=== PATIENT | female | born 1985 | race Caucasian/White ===

== ENCOUNTER → 2018-01-04 15:18 | Outpatient (CLI) | payer MEDICAID, SELFPAY ==
[2018-01-04 17:36] LABS: Hemoglobin A1c 6.1 % (4.2-6.3)
[2018-01-04 19:32] LABS: Free T3 3.1 pg/mL (2.18-3.98); Glucose 87 mg/dL (74-106); Luteinizing Hormone 4.1 mIU/mL; Prolactin 12.1 ng/mL; T4 Free Direct 1.07 ng/dL (0.76-1.46); Thyroid Stim Hormone (TSH) 1.72 uIU/mL (0.358-3.74)
== END ==
PROVIDERS: Visit Provider Obstetrics & Gynecology
DX: N92.6 Irregular menstruation, unspecified (principal)
CPT/HCPCS: 36415; 82947; 83001; 83002; 83036; 84146; 84439; 84443; 84481

== ENCOUNTER 2018-02-21 08:48 | Day surgery (SDC) | payer MEDICAID, SELFPAY ==
[2018-02-15 15:28] LABS: Hematocrit 39.5 % (37-47); Hemoglobin 12.9 g/dl (12.0-15.0); Mean Corp Hgb Conc 32.7 g/gl (32-36); Mean Corpuscular Hgb 29.3 pg (27.0-32.0); Mean Corpuscular Volume 89.6 fL (81-99); Mean Platelet Vol. 11.8 fl (6.2-12.0); Platelet Count 273 K/mm3 (150-450); RBC Distribution Width CV 13.1 % (11.6-14.6); RBC Distribution Width SD 42.7 fl (35.1-43.9); Red Blood Count 4.41 M/mm3 (4.2-5.4); White Blood Count 7.2 K/mm3 (4.4-11.0)
[2018-02-15 15:33] LABS: Scan Indicated on CBC? Y/N NO
[2018-02-15 15:47] LABS: International Normalized Ratio 1.1
[2018-02-15 15:48] LABS: Partial Thromboplast Time 29.2 Seconds (24.1-36.2)
[2018-02-15 16:09] LABS: Pregnancy, Serum, hCG Quali. NEGATIVE Negative (0-9 Nonpreg)
[2018-02-21] VITALS (7 sets, daily range): BP systolic 101–114; BP diastolic 63–75; PULSE 54–87; RESP 16–18; TEMP 36.3–36.8; O2SAT 93–100; BMI 43.1
[2018-02-21 09:10] LABS: Internal QC Validated? YES +Cl - CLEAR BKGD; Pregnancy, Urine Negative Negative
[2018-02-21] MEDS: Clindamycin 900 MG/50 ML BAG 75 MG IV (10:15)
--- NOTE | 2018-02-21 10:46 | PCM.DC ---
You will use the following diet at home:: No restrictions Your food should be the consistency of: Regular Discharge Activity: Return to Normal Activity, May Drive, May not drive while taking narcotic pain medications., May Shower Return to work on:: 02/21/18 May shower in (days): 0 May resume sexual activity in: 2 weeks Call your doctor if your incision/area has: Sudden Increased Bleeding, Increased Pain/ Swelling, Increased Redness, Foul Smelling Discharge, Swelling at the incision site Call your doctor if you observe: Fever of 101 or Higher, Inability to urinate, Inability to have a bowel movement, Using more than one pad per hour, Shortness of breath, Chest pain, Calf discomfort, Uncontrolled pain Remove Dressing in (days):: 1 Cleanse incision/area with: Soap & Water Allergies/Adverse Reactions: Allergies morphine Allergy (Verified 02/14/18 11:01) Vomiting Penicillins Allergy (Verified 02/14/18 11:01) Unknown Medications to take at Discharge Hydrocodone/Acetaminophen [[place] 7.5-325 Tablet] 1 ea PO Q6H PRN PRN 7 Days #20 tab 02/21/18 Ibuprofen [Motrin] 800 mg PO TID PRN PRN #30 tab 02/21/18 The following prescriptions were given: Hydrocodone/Acetaminophen [[place] 7.5-325 Tablet] 1 ea PO Q6H PRN PRN 7 Days #20 tab PRN Reason: Pain Ibuprofen [Motrin] 800 mg PO TID PRN PRN #30 tab PRN Reason: pain or cramping Primary Care Physician: Care Physician,No Primary [Primary Care Provider] - Please Follow Up With: Paul Valladares MD When: one week Proposed Discharge Date: 02/21/18
[2018-02-21] MEDS: Bupivacaine 0.25% 30 ML Vial (11:09)
--- NOTE | 2018-02-21 11:19 | OP.PCM_ITS ---
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 Normal uterus, ovaries, and fallopian tubes. Liver appeared normal. Appendix normal. No pelvic or abdominal adhesions present. No evidence of endometriosis. product demonstrator: Audrey Hernández Type of Anesthesia:: General Anesthesiologist: Christopher Gutierrez Special Medications: none Specimen's removed: none Drains: none Estimated Blood Loss (mL): minimal Fluids Replaced: 500cc Description of Procedure: Magaly was taken to the OR with IV running. She was given gentamicin and clindamycin intravenously for surgical prophylaxis just prior to the procedure. General anesthesia was then introduced without complication. She was prepped and draped in the dorsal lithotomy position. A red rubber catheter was used to drain the bladder. A uterine manipulator was then placed. Attention was then directed to the abdomen where a 5mm vertical incision was made in the lower base of the umbilicus. The underlying subcutaneous tissue was then dissected down to the level of the fascia with blunt dissection with a Cinthia clamp. The abdominal wall was then elevated and a Veress needle was placed through the umbilical defect. The abdomen was then inflated to 15 Torr with CO2 gas. Using the visiport the 5mm trocar and sleeve were placed through the umbilical defect into the abdominal cavity. A second 5mm laparoscopic port was placed on the right side of the abdomen about 4 cm below the level of the umbilicus lateral to the inferior epigastric vessels. A thorough survey of the abdomen and pelvis was then performed. Findings were as mentioned above. The right port was then removed under direct visualization of the laparoscope. The gas was evacuated from the abdomen and the umbilical port site removed. The skin incisions were closed with 4-0 monocryl. The uterine manipulator was removed. Sponge and needle counts were correct. She was taken to the recovery room in stable condition. Grafts/Implants Used: none - Complications none - Admit VTE Documentation VTE Present on Admission: No VTE Mechan Device Prophylaxis: SCD's VTE Pharm Prophylaxis ordered?: No
== END 2018-02-21 13:35 | disposition home or self-care (01) ==
LOC: SDC 08:49 → AC 08:49
PROVIDERS: Visit Provider Obstetrics & Gynecology
PROC: (CPT 49320; principal; 2018-02-21 10:15)
DX: N94.10 Unspecified dyspareunia (principal); R10.2 Pelvic and perineal pain; Z87.891 Personal history of nicotine dependence
CPT/HCPCS: 00840; 49320; 36415; 81025; 84703; 85027; 85610; 85730; 86850; 86900; J7120; J2405

== ENCOUNTER → 2018-08-06 10:00 | Outpatient (CLI) | payer MEDICAID, SELFPAY ==
[2018-08-06 13:23] LABS: hCG Titer Quant., Serum 3648 mIU/mL (<9 non-preg)
[2018-08-06 15:16] LABS: Chlamydia Trachomatis by PCR Negative (Negative); Neisserai gonorrhoeae by PCR Negative (Negative); Probe Check PASS; Sample Adequacy Control PASS; Specimen Processing Control PASS
[2018-08-09 11:18] LABS: HPV Reflexed? NOT INDICATED
== END ==
PROVIDERS: Visit Provider Obstetrics & Gynecology
DX: Z32.01 Encounter for pregnancy test, result positive (principal); Z12.4 Encounter for screening for malignant neoplasm of cervix; Z11.3 Encounter for screening for infections with a predominantly sexual mode of transmission
CPT/HCPCS: 36415; 84702; 87491; 87591; 88175; G0145

== ENCOUNTER → 2018-08-09 10:17 | Outpatient (CLI) | payer MEDICAID, SELFPAY ==
[2018-08-09 11:15] LABS: hCG Titer Quant., Serum 9244 mIU/mL (<9 non-preg)
== END ==
PROVIDERS: Visit Provider Obstetrics & Gynecology
DX: Z32.01 Encounter for pregnancy test, result positive (principal)
CPT/HCPCS: 36415; 84702

== ENCOUNTER → 2018-08-20 11:41 | Outpatient (CLI) | payer MEDICAID, SELFPAY ==
[2018-08-20 13:38] LABS: Color, Urine Straw (Yellow); Glucose, Dipstick Normal (Normal); Ketone-Dipstick Negative (Negative); Leukocyte Esterase-Dipstick 25 /ul (Negative); Nitrite-Dipstick Negative (Negative); Occult Blood-Urine Negative /ul (Negative); Protein-Dipstick Negative (Negative); Specific Gravity, Urine 1.005 (1.002-1.030); Urine Bilirubin Dipstick Negative (Negative); Urine Clarity Clear (Clear); Urine Urobilinogen Normal (Normal)
[2018-08-20 13:40] LABS: COTININE Drug Screen Negative (<200 ng/mL)
[2018-08-20 13:44] LABS: Absolute Lymphocyte Count 2.46 X10^3/ul (0.83-4.51); Absolute Neutrophil Count 3.9 X10^3/uL (2.0-7.7); Basophil# 0.03 X10^3/uL; Basophil% 0.4 % (0-1); Eosinophil# 0.04 X10^3/uL; Eosinophils% 0.6 % (0-5); Hematocrit 39.8 % (37-47); Hemoglobin 13.2 g/dl (12.0-15.0); Lymphocyte # 2.46 X10^3/ul (4.0); Lymphocyte % 36.7 % (19-41); Mean Corp Hgb Conc 33.2 g/gl (32-36); Mean Corpuscular Hgb 29.8 pg (27.0-32.0); Mean Corpuscular Volume 89.8 fL (81-99); Mean Platelet Vol. 12.2 fl (6.2-12.0); Monocyte% 4.5 % (0-10); Neutrophil # 3.87 X10^3/uL (2.7-7.7); Neutrophil % 57.7 % (47-70); POSITIVE COUNT NO; POSITIVE DIFFERENTIAL NO; POSITIVE MORPHOLOGY NO; Platelet Count 271 K/mm3 (150-450); RBC Distribution Width CV 13.5 % (11.6-14.6); RBC Distribution Width SD 44.5 fl (35.1-43.9); Red Blood Count 4.43 M/mm3 (4.2-5.4); White Blood Count 6.7 K/mm3 (4.4-11.0)
[2018-08-20 13:50] LABS: Amphetamine Urine VISTA NEGATIVE (<1000 ng/mL); Barbiturate Urine VISTA NEGATIVE (< 200 ng/mL); Benzodiazepine Urine VISTA NEGATIVE (< 200 ng/mL); Cocaine Urine VISTA NEGATIVE (< 300 ng/mL); Ecstacy Urine VISTA NEGATIVE (< 500 ng/mL); Methadone Urine VISTA NEGATIVE (< 300 ng/mL); PCP Urine VISTA NEGATIVE (< 25 ng/mL); THC Urine VISTA NEGATIVE (< 50 ng/mL); Vista UDS pH Range 6
[2018-08-20 13:59] LABS: Thyroid Stim Hormone (TSH) 1.47 uIU/mL (0.358-3.74)
[2018-08-20 14:40] LABS: HIV - WCH Non-Reactive (Nonreactive); Rubella IgG 323.3 IU/mL
[2018-08-21 13:39] LABS: HEPATITIS B SURFACE AG Negative (Negative); Hep C Antibodies <0.1 s/co ratio (0.0-0.9)
[2018-08-24 03:50] LABS: Prenatal RPR NONREACTIVE (NONREACTIVE)
== END ==
PROVIDERS: Visit Provider Obstetrics & Gynecology
DX: Z34.81 Encounter for supervision of other normal pregnancy, first trimester (principal)
CPT/HCPCS: 36415; 80307; 81002; 84443; 85025; 86703; 86762; 86803; 87340

== ENCOUNTER → 2019-01-08 08:45 | Outpatient (CLI) | payer MEDICAID, SELFPAY ==
[2019-01-08 11:00] LABS: Hemoglobin 10.5 g/dl (12.0-15.0); Mean Corp Hgb Conc 32.8 g/gl (32-36); Mean Corpuscular Hgb 29.5 pg (27.0-32.0); Mean Corpuscular Volume 89.9 fL (81-99); Mean Platelet Vol. 11.4 fl (6.2-12.0); Platelet Count 249 K/mm3 (150-450); RBC Distribution Width CV 13.3 % (11.6-14.6); RBC Distribution Width SD 43.5 fl (35.1-43.9); Red Blood Count 3.56 M/mm3 (4.2-5.4); White Blood Count 7.8 K/mm3 (4.4-11.0)
[2019-01-08 11:03] LABS: Scan Indicated on CBC? Y/N NO
[2019-01-08 11:33] LABS: Glucose Challenge Gest 1H 50g 156 mg/dL (70-140)
== END ==
PROVIDERS: Visit Provider Obstetrics & Gynecology
DX: Z34.82 Encounter for supervision of other normal pregnancy, second trimester (principal)
CPT/HCPCS: 36415; 82950; 85027

== ENCOUNTER → 2019-01-11 06:36 | Outpatient (CLI) | payer MEDICAID, SELFPAY ==
[2019-01-11 07:46] LABS: Glucose GTT-Gestation. Fasting 80 mg/dL (<105)
[2019-01-11 08:47] LABS: Glucose GTT-Gestational 1 Hr 157 mg/dL (<190)
[2019-01-11 10:22] LABS: Glucose GTT-Gestational 2 Hr 99 mg/dL (<165)
[2019-01-11 11:44] LABS: Glucose GTT-Gestational 3 Hr 50 L (<145)
== END ==
PROVIDERS: Family Provider Family Medicine; PCP Family Medicine; Referring Provider Obstetrics & Gynecology; Visit Provider Obstetrics & Gynecology
DX: O24.912 Unspecified diabetes mellitus in pregnancy, second trimester (principal); Z3A.00 Weeks of gestation of pregnancy not specified
CPT/HCPCS: 36415; 82951; 82952

== ENCOUNTER 2019-01-28 10:46 | Emergency (ER) | payer MEDICAID, SELFPAY ==
[2019-01-28 10:47] VITALS: BP 137/86; PULSE 110; RESP 16; TEMP 37.1; O2SAT 97; BMI 45.1
[2019-01-28 10:52] VITALS: BP 137/86; PULSE 110; RESP 16; TEMP 37.1; O2SAT 97
--- NOTE | 2019-01-28 11:09 | RAD_ITS ---
STUDY: X-RAY CHEST REASON FOR EXAM: Female, 33 years old. Symptoms of a cold. The patient is 30 weeks . The patient is adequately shielded. TECHNIQUE: PA and lateral views of the chest. COMPARISON: None. FINDINGS: Mild increased markings at the left lung base suggestive of left basilar atelectasis and/or early infiltrate. There is no demonstrated pleural abnormality. Normal size heart. Normal mediastinum and valerie. Normal visualized pulmonary arteries. Normal visualized aortic arch and descending thoracic aorta. Normal visualized thoracic spine. Normal visualized ribs, clavicles, and shoulders. There is no demonstrated abnormality of the visualized soft tissue structures of the upper abdomen. RAD/Chest PA and Lateral IMPRESSION: Mild increased markings at the left lung base suggestive of mild basilar atelectasis versus early infiltrate. Electronically Signed: Scotty Valladares, at 11:59 EDT , Service support ,
[2019-01-28] MEDS: Acetaminophen 500 MG Tablet 1000 MG PO (11:17)
[2019-01-28] MEDS: predniSONE 20 MG Tablet 40 MG PO (11:19)
[2019-01-28 11:29] VITALS: PULSE 80; RESP 18
[2019-01-28] MEDS: Albuterol 2.5 MG/3 ML VIAL.NEB. INHALATION (11:29)
--- NOTE | 2019-01-28 12:14 | ED.DCSUM_ITS ---
- ER Visit Summary Date of Service: 01/28/19 Chief Complaint: Cough History of Present Illness: The patient is a [address] Barnes and Dr. María ashley. She reports he has a cough began approximately month ago. Is productive of green sputum without blood. She states that she has not had a fever for the past 2 weeks. She reports that she has sinus congestion and a sore throat is 10 out of 10 in severity. She has chest and abdominal pain with coughing. She has been wheezing and is mildly short of breath. She has a headache that is 6 out of 10 severity. She does have a history of similar headaches. Patient is a at 30 weeks and 1 day. She denies any vaginal bleeding or discharge. She had normal movement. She is on Tamiflu approximately 1 month ago without any relief. She went to urgent care and was told that this was viral. States she has had similar symptoms previously, but never this severe. She has had to use inhalers in the past. Physical Examination: Vitals: 98.8, 1 3736, 110, 16, 97% room air which is not hypoxic. General: Well-nourished and well-developed. Head: Normocephalic atraumatic. HEENT: Pharyngeal erythema. No tonsillar exudate or enlargement. No peritonsillar abscess. She does have nasal congestion. Neck: Supple, no lymphadenopathy. No JVD. Nontender. Cardiovascular: Regular rate and rhythm. No murmurs. Respiratory: No respiratory distress. Clear to auscultation bilaterally. Frequent dry cough. Abdominal: Soft, nontender, nondistended, normal bowel sounds. No guarding, rebound, or peritoneal signs. Gravid uterus. Back: Nontender. Extremities: Nontender, no edema. Skin: Normal color, no rash. Neurologic: Alert and oriented ?3. Cranial nerves II through XII are intact. Normal strength and sensation. Psych: Normal affect. Test Results: Chest x-ray shows mild increased markings in the left lung base. Atelectasis versus early infiltrate. Given her third trimester I suspect that this is actually atelectasis. I does not appear to be an infiltrate in my opinion. Emergency Department Course and Treatment: Patient was treated with an albuterol aerosol. This did help with her cough significantly. She is given a dose of Zithromax and prednisone p.o. She had heart tones 136. Treatment Plan: Patient be discharged on a Z-Atul. 4 days of prednisone. Given a prescription for an albuterol MDI. Instructed to follow-up her primary care physician in 3-5 days if not improving. Return to the emergency department for any worsening symptoms. Disposition: To home in improved and stable condition. Impression: 1. URI. 2. Bronchospasm. 3. Third trimester . This note was generated with [employer] dictation software. It may contain incorrect words, spelling, and punctuation that were not noted in review of the chart prior to signing ED Disposition - Plan for ED Patient: Disposition: Home or Assisted Living Instructions: ED Upper Resp Infec Abx Tx Prescriptions: Albuterol Inhaler [Ventolin Hfa] 2 puff INHALATION Q4H PRN PRN #1 inhaler PRN Reason: Wheezing Azithromycin [Zithromax] 250 mg PO DAILY #4 tablet Prednisone [Deltasone] 40 mg PO DAILY #10 tablet Referrals: Carlos Nair MD [Primary Care Provider] - 1 Week if not improving
[2019-01-28] MEDS: Azithromycin 250 MG Tablet 500 MG PO (12:27)
[2019-01-28 12:30] VITALS: BP 117/79; PULSE 91; RESP 18; O2SAT 97
== END 2019-01-28 12:32 | disposition home or self-care (01) ==
LOC: ED 11:19
PROVIDERS: Emergency Provider Emergency Medicine; Family Provider Family Medicine; PCP Family Medicine
DX: O26.893 Other specified pregnancy related conditions, third trimester (principal); J06.9 Acute upper respiratory infection, unspecified; J98.01 Acute bronchospasm; Z87.891 Personal history of nicotine dependence; Z3A.30 30 weeks gestation of pregnancy
CPT/HCPCS: 71046; 94640; 99283

== ENCOUNTER → 2019-03-13 16:59 | Outpatient (CLI) | payer MEDICAID, SELFPAY | PROVIDERS: Visit Provider Obstetrics & Gynecology | DX: Z36.85 Encounter for antenatal screening for Streptococcus B (principal) | CPT/HCPCS: 87081 ==

== ENCOUNTER 2019-03-25 19:10 | Outpatient (CLI) | payer MEDICAID, SELFPAY ==
[2019-03-25] MEDS: Acetaminophen 500 MG Tablet 1000 MG PO (20:22)
[2019-03-25 20:23] VITALS: BMI 45.9
[2019-03-25 20:36] LABS: ROM Internal Control Test YES-OK TO RESULT pt. (Internal QC); ROM Patient Test Negative (Negative)
[2019-03-25] MEDS: Lactated Ringers 1,000 ML 125 ML IV (22:00)
[2019-03-25 22:22] LABS: Hematocrit 34.1 % (37-47); Hemoglobin 11.2 g/dl (12.0-15.0); Mean Corp Hgb Conc 32.8 g/gl (32-36); Mean Corpuscular Hgb 28.7 pg (27.0-32.0); Mean Corpuscular Volume 87.4 fL (81-99); Mean Platelet Vol. 12.2 fl (6.2-12.0); Platelet Count 192 K/mm3 (150-450); RBC Distribution Width CV 14.2 % (11.6-14.6); RBC Distribution Width SD 44.8 fl (35.1-43.9); White Blood Count 9.8 K/mm3 (4.4-11.0)
[2019-03-25 22:27] LABS: Scan Indicated on CBC? Y/N NO
[2019-03-25 22:36] LABS: International Normalized Ratio 0.9; Partial Thromboplast Time 25.8 Seconds (24.1-36.2)
[2019-03-25 22:37] LABS: AST(SGOT) 10 U/L (15-37); Alanine Aminotransfer ALT/SGPT 16 U/L (13-56); Creatinine, Serum 0.59 mg/dL (0.55-1.02); EST Glomerular Filtration Rate 124 mL/min (>60); Est Glom Filt Rate - Afr Amer 150 mL/min (>60); Estimated Creatinine Clearance 131.89 ml/min; Uric Acid 5.3 mg/dL (2.6-6.0)
[2019-03-25 23:23] LABS: Protein, Urine (Random) 9.5 mg/dL (<11.9); Protein:Creat Ratio 79 mg/g CRE (0-200)
--- NOTE | 2019-03-26 00:23 | OB.TRI.NOTE ---
History of Present Illness Was patient seen by the physician?: Yes Reason For Visit: R/O LABOR Date of Service: 03/26/19 Final SMILEY: 04/07/19 Final SMILEY Source: US <20 weeks Gestational age: 38 Weeks and 2 Days History of Present Illness: 38+ week intrauterine presents with headache for 3 days. Does not seem to be getting worse but is not getting better. Some issues with sinus congestion. Did not try any Tylenol today. Good movement. Denies contractions. Allergies Penicillins Allergy (Verified 03/25/19 20:05) Unknown morphine Adverse Reaction (Verified 03/25/19 20:16) Vomiting Laboratory Studies: Laboratory Tests 03/25/19 03/25/19 03/25/19 Range/Units 23:00 22:00 22:00 WBC (4.4-11.0) K/mm3 RBC (4.2-5.4) M/mm3 Hgb (12.0-15.0) g/dl Hct (37-47) % MCV (81-99) fL MCH (27.0-32.0) pg MCHC (32-36) g/gl RDW (11.6-14.6) % RDW Differential (35.1-43.9) fl Plt Count (150-450) K/mm3 MPV (6.2-12.0) fl PT 12.0 (11.7-14.9) SECONDS INR 0.9 APTT 25.8 (24.1-36.2) Seconds Creatinine 0.59 (0.55-1.02) mg/dL Estim Creat Clear Calc 131.89 ml/min Est GFR (MDRD) Af Amer 150 (>60) mL/min Est GFR (MDRD) Non-Af 124 (>60) mL/min Uric Acid 5.3 (2.6-6.0) mg/dL AST 10 L (15-37) U/L ALT 16 (13-56) U/L U Random Total Protein 9.5 (<11.9) mg/dL Urine Creatinine 121.00 (NO RANGE EST.) mg/dL Protein/Creatinin Ratio 79 (0-200) mg/g CRE Vag Amniotic Fld Detect (Negative) 03/25/19 03/25/19 Range/Units 22:00 19:55 WBC 9.8 (4.4-11.0) K/mm3 RBC 3.90 L (4.2-5.4) M/mm3 Hgb 11.2 L (12.0-15.0) g/dl Hct 34.1 L (37-47) % MCV 87.4 (81-99) fL MCH 28.7 (27.0-32.0) pg MCHC 32.8 (32-36) g/gl RDW 14.2 (11.6-14.6) % RDW Differential 44.8 H (35.1-43.9) fl Plt Count 192 (150-450) K/mm3 MPV 12.2 H (6.2-12.0) fl PT (11.7-14.9) SECONDS INR APTT (24.1-36.2) Seconds Creatinine (0.55-1.02) mg/dL Estim Creat Clear Calc ml/min Est GFR (MDRD) Af Amer (>60) mL/min Est GFR (MDRD) Non-Af (>60) mL/min Uric Acid (2.6-6.0) mg/dL AST (15-37) U/L ALT (13-56) U/L U Random Total Protein (<11.9) mg/dL Urine Creatinine (NO RANGE EST.) mg/dL Protein/Creatinin Ratio (0-200) mg/g CRE Vag Amniotic Fld Detect Negative (Negative) NST - FHR Rate Baby B NST Reactive:: Yes FHR Category:: Category I Impression/Plan 38+ week intrauterine with some sinus congestion. No PIH signs or symptoms. Headache abated a bit with some Tylenol. PIH labs were normal. Reactive nonstress test. ROM plus test was negative. Plans to follow-up in the office tomorrow and discuss with Dr. Valladares. Otherwise routine follow-up. Return if headaches become significantly worse.
== END 2019-03-26 00:30 | disposition home or self-care (01) ==
LOC: WPOUT 19:57 → WP 19:58
PROVIDERS: Visit Provider Obstetrics & Gynecology
DX: O26.893 Other specified pregnancy related conditions, third trimester (principal); R09.81 Nasal congestion; Z88.0 Allergy status to penicillin; Z3A.38 38 weeks gestation of pregnancy
CPT/HCPCS: 96360; 96361 ×2; 36415; 59025; 59050; 82565; 82570; 84112; 84156; 84450; 84460; 84550; 85027; 85610; 85730; 99218; J7120; G0378

== ENCOUNTER 2019-04-03 07:02 | Inpatient (IN) | payer MEDICAID, SELFPAY ==
[2019-04-03 07:40] VITALS: BMI 46.0
[2019-04-03] MEDS: Lactated Ringers 1,000 ML 50 ML IV ×2 (07:48→11:10)
[2019-04-03 08:00] LABS: Absolute Neutrophil Count 5.3 X10^3/uL (2.0-7.7); Basophil# 0.01 X10^3/uL; Basophil% 0.1 % (0-1); Eosinophil# 0.08 X10^3/uL; Eosinophils% 0.9 % (0-5); Hematocrit 34.7 % (37-47); Hemoglobin 11.4 g/dl (12.0-15.0); Mean Corp Hgb Conc 32.9 g/gl (32-36); Mean Corpuscular Hgb 28.7 pg (27.0-32.0); Mean Corpuscular Volume 87.4 fL (81-99); Mean Platelet Vol. 12.4 fl (6.2-12.0); Monocyte# 0.47 X10^3/uL; Monocyte% 5.3 % (0-10); Neutrophil # 5.32 X10^3/uL (2.7-7.7); Neutrophil % 60.5 % (47-70); Platelet Count 189 K/mm3 (150-450); RBC Distribution Width CV 13.9 % (11.6-14.6); Red Blood Count 3.97 M/mm3 (4.2-5.4); White Blood Count 8.8 K/mm3 (4.4-11.0)
[2019-04-03 08:02] LABS: POSITIVE COUNT NO; POSITIVE DIFFERENTIAL NO; POSITIVE MORPHOLOGY NO
[2019-04-03] MEDS: Oxytocin 30 units/NS 500 ml 30 UNITS/500 ML IV.SOLN IV (08:10)
[2019-04-03] MEDS: fentaNYL-bupivacaine (epidural) 100 ML BAG EPIDURAL (10:40)
[2019-04-03] MEDS: Oxytocin 30 units/NS 500 ml 30 UNITS/500 ML IV.SOLN 334 UNITS IV (13:51)
--- NOTE | 2019-04-03 14:14 | PCM.OPRPT ---
Report of Operation Date of Procedure: 04/03/19 Pre-Operative Diagnosis: Gestational Hypertension 39w3d ega Post-Operative Diagnosis: same Surgery/Procedure Performed:: Spontaneous Vaginal Delivery Vaginal Delivery Maternal Presentation: Medically Indicated Induction 39w3d ega admitted for induction of labor due to gestational hypertension. Method of Induction: Pitocin Medical Reason for Induction: Gestational Hypertension Amniotic Membrane Rupture Type: Artificial Rupture of Membrane time: 0830 Amniotic Fluid Description: Clear Final SMILEY: 04/07/19 Final SMILEY Source: US <20 weeks Gestational age: 39 Weeks and 3 Days Date of Procedure: 04/03/19 Pre-Operative Diagnosis: Labor Post-Operative Diagnosis: same Surgery/ Procedure Performed: Spontaneous Vaginal Delivery Anesthesiologist: Gian Reddy Type of Anesthesia: Epidural Description of Procedure: Progressed to FD then pushed for about 15 minutes to deliver a live female without complication. Delayed cord clamping was employed. After delivery the mouth was suctioned with a bulb suction. There was an active cry shortly after delivery. The cord was clamped and cut and the baby placed on mom's chest. The placenta was delivered spontaneously intact. The placenta was heart shaped with a centrally located 3VC. The uterus contracted well. Inspection revealed an intact upper and lower vagina, cervix and perineum. A small first degree periurethral tear was repaired with 3-0 Rapide suture. Presentation: Vertex Placental Delivery Description: Spontaneous Placenta Disposition: [facility] Percentage of Placenta Abruption: 0 Cord Vessel Description: 3 Vessels Nuchal Cord Compression: Without compression Cord Entanglement: None Drain: Michael to straight drain Estimated Blood Loss: 200c A gender: Female (1 minute): 9 (5 minute): 9 Episiotomy Description: None Laceration: Periurethral Extnsion/lac, 1st degree Medications given after delivery: IV Pitocin Complications: None
[2019-04-03] MEDS: Oxytocin 30 units/NS 500 ml 30 UNITS/500 ML IV.SOLN 167 UNITS IV (14:21)
--- NOTE | 2019-04-03 14:21 | DCINST_ITS ---
Discharge Diet: No Restrictions Discharge Activity: Return to Normal Activity Return to work on:: 06/03/19 May shower in (days): 0 May resume sexual activity in: 6 weeks Call your doctor if your incision/area has: Sudden Increased Bleeding, Increased Pain/ Swelling, Foul Smelling Discharge Call your doctor if you observe: Fever of 101 or Higher, Inability to urinate, Inability to have a bowel movement, Using more than one pad per hour, Shortness of breath, Chest pain, Calf discomfort, Uncontrolled pain Cleanse incision/area with: Soap & Water Additional Instructions: If you experience any of the following, contact your healthcare provider. * Bleeding that soaks a pad every hour for 2 hours * Fever 100.4 or higher * Unrelieved incision or abdominal pain * Swelling, redness, discharge or bleeding from your incision or episiotomy site * Your incision begins to separate * Problems urinating (including inability to urinate or burning while urinating). * Visual changes * Severe headache * Flu-like symptoms * Pain or redness in one of both of your breasts * Pain, warmth, tenderness or swelling in your legs, especially the calf area * Frequent nausea and vomiting * Symptoms of depression or anxiety If you experience any of the following, call 911 or go to the nearest Emergency Room. * Chest pain * Problems breathing * Seizure activity * Partial or complete paralysis of a body part, slurred speech, weakness or drooping of the face, or a sudden inability to walk or hold your balance Allergies/Adverse Reactions: Allergies Penicillins Allergy (Verified 04/03/19 07:41) Unknown morphine Adverse Reaction (Verified 04/03/19 07:41) Vomiting Medications to take at Discharge Ferrous Gluconate 324 mg PO BID 01/28/19 Docusate Sodium 100 mg PO BID 04/03/19 Vit No.130/Iron/Folic [ Tablet] 1 tab PO DAILY 04/03/19 Please Follow Up With: Paul Valladares MD When: 6 weeks Test Results: Test results from this visit will be discussed in further detail at your follow- up appointment, if applicable. Proposed Discharge Date: 04/05/19
[2019-04-03 18:00] VITALS: BP 134/83; PULSE 82; RESP 16; TEMP 36.8; O2SAT 99
[2019-04-03] MEDS: Ibuprofen 600 MG Tablet PO ×2 (18:03→23:35)
[2019-04-03] MEDS: Ferrous Gluconate 324 MG Tablet PO (18:03)
[2019-04-03 19:15] VITALS: BP 135/78; PULSE 78; RESP 18; TEMP 37
[2019-04-03 23:25] VITALS: BP 132/78; PULSE 71; RESP 18; TEMP 36.4
[2019-04-04 03:25] VITALS: BP 130/80; PULSE 74; RESP 18; TEMP 36.3
[2019-04-04] MEDS: Ibuprofen 600 MG Tablet PO ×2 (05:31→14:17)
[2019-04-04 07:38] LABS: Hematocrit 31.9 % (37-47); Hemoglobin 10.4 g/dl (12.0-15.0); Mean Corp Hgb Conc 32.6 g/gl (32-36); Mean Corpuscular Hgb 28.5 pg (27.0-32.0); Mean Corpuscular Volume 87.4 fL (81-99); Mean Platelet Vol. 11.9 fl (6.2-12.0); Platelet Count 172 K/mm3 (150-450); RBC Distribution Width CV 14.1 % (11.6-14.6); RBC Distribution Width SD 44.8 fl (35.1-43.9); Red Blood Count 3.65 M/mm3 (4.2-5.4); White Blood Count 10.2 K/mm3 (4.4-11.0)
[2019-04-04 07:40] LABS: Scan Indicated on CBC? Y/N NO
--- NOTE | 2019-04-04 08:03 | PCM.PN.OB ---
Subjective: Some cramping with breast feeding otherwise no complaints. Bleeding light. Objective: Afeb VSS Hgb appropriate on PP day#1 - Physical Exam General: Alert, Oriented x3, Cooperative, No apparent distress Lungs: Clear to auscultation, Normal air movement Cardiovascular: Regular rate, Regular Rhythm Abdomen: Soft, Non Tender, Non-Distended, - - Fundus nontender Extremities: No edema Skin: No rashes Neurological: Neuro grossly intact Psych/Mental Status: Normal Affect Comment: Lochia light Vital Signs Temp Pulse Resp BP Pulse Ox 97.4 F L 74 18 130/80 H 99 04/04/19 03:25 04/04/19 03:25 04/04/19 03:25 04/04/19 03:25 04/03/19 18:00 Oxygen Delivery Method Room Air Weight: 294 lb Body Mass Index (BMI) 46.0 Intake and Output for Last 24 Hours 04/02/19 04/03/19 04/04/19 23:59 23:59 23:59 Output Total 350 / 350 200 / 200 Balance -350 / -350 -200 / -200 Laboratory Tests Past 24 Hrs 04/03/19 04/04/19 07:45 07:30 WBC 10.2 RBC 3.65 L Hgb 10.4 L Hct 31.9 L MCV 87.4 MCH 28.5 MCHC 32.6 RDW 14.1 RDW Differential 44.8 H Plt Count 172 MPV 11.9 Blood Type A POSITIVE Antibody Screen NEGATIVE Medical Necessity - Tobacco Use Smoking Status: Former smoker Assessment/Plan All Active Problems Epigastric pain (Acute) Doing well on PP day#1. Continue routine PP care. may consider discharge home tonight. Home going instructions and warnings given.
--- NOTE | 2019-04-04 08:05 | DS.PCM_ITS ---
Discharge Date and Diagnosis Date of Admission: 04/03/19 Date of Discharge: 04/04/19 - Primary Discharge Diagnosis Gestational hypertension, term , s/p - Secondary Discharge Diagnosis Chronic Problems Pelvic pain (Chronic) Dyspareunia due to non-psychogenic cause in female (Chronic) Obesity (BMI 30.0-34.9) (Chronic) Hospital Course and Treatment Operations: None Procedures: - - Pitocin induction of labor, epidural anesthesia, Summary of Care Provided: The patient is a 33 year old F admitted for induction of labor at 39w3d [facility] to gestational hypertension. Pitocin induction resulted in an uncomplicated vaginal delivery. Post course was unremarkable. Discharged home on day[] - Physical Exam Vital Signs Temp Pulse Resp BP Pulse Ox 97.4 F L 74 18 130/80 H 99 04/04/19 03:25 04/04/19 03:25 04/04/19 03:25 04/04/19 03:25 04/03/19 18:00 Oxygen Delivery Method Room Air Weight: 294 lb Body Mass Index (BMI) 46.0 Intake and Output for Last 24 Hours 04/02/19 04/03/19 04/04/19 23:59 23:59 23:59 Output Total 350 / 350 200 / 200 Balance -350 / -350 -200 / -200 Laboratory Tests Past 24 Hrs 04/03/19 04/04/19 07:45 07:30 WBC 10.2 RBC 3.65 L Hgb 10.4 L Hct 31.9 L MCV 87.4 MCH 28.5 MCHC 32.6 RDW 14.1 RDW Differential 44.8 H Plt Count 172 MPV 11.9 Blood Type A POSITIVE Antibody Screen NEGATIVE Discharge Diet: No Restrictions Discharge Activity: Return to Normal Activity Return to work on:: 06/03/19 May shower in (days): 0 May resume sexual activity in: 6 weeks Call your doctor if your incision/area has: Sudden Increased Bleeding, Increased Pain/ Swelling, Foul Smelling Discharge Call your doctor if you observe: Fever of 101 or Higher, Inability to urinate, Inability to have a bowel movement, Using more than one pad per hour, Shortness of breath, Chest pain, Calf discomfort, Uncontrolled pain Cleanse incision/area with: Soap & Water Home Medications: Medications to take at Discharge Ferrous Gluconate 324 mg PO BID 01/28/19 Docusate Sodium 100 mg PO BID 04/03/19 Vit No.130/Iron/Folic [ Tablet] 1 tab PO DAILY 04/03/19 Please Follow Up With: Paul Valladares MD When: 6 weeks Disposition: Home Minutes spent on discharge:: 15 Medical Necessity - Tobacco Use Smoking Status: Former smoker Meaningful Use Info Meaningful Use Diagnoses (Choose all that apply): None applicable
[2019-04-04 08:36] VITALS: BP 129/82; PULSE 72; RESP 16; TEMP 36.5; O2SAT 98
[2019-04-04] MEDS: Ferrous Gluconate 324 MG Tablet PO ×2 (09:15→16:32)
[2019-04-04 11:43] VITALS: BP 117/81; PULSE 82; RESP 16; TEMP 36.7; O2SAT 97
[2019-04-04] MEDS: Prenatal Vits Tablet 1 TABLET PO (11:43)
[2019-04-04] MEDS: Senna/Docusate Sodium 1 Tablet PO (11:53)
[2019-04-04 16:29] VITALS: BP 104/80; PULSE 78; RESP 16; TEMP 36.7; O2SAT 98
[2019-04-04 20:45] VITALS: BP 134/83; PULSE 78; RESP 20; TEMP 36.6
[2019-04-05 01:30] VITALS: BP 129/88; PULSE 80; RESP 18; TEMP 36.7
[2019-04-05] MEDS: Ibuprofen 600 MG Tablet PO (05:25)
[2019-04-05] MEDS: Ferrous Gluconate 324 MG Tablet PO (07:52)
[2019-04-05 07:53] VITALS: BP 128/83; PULSE 70; RESP 15; TEMP 36.3
--- NOTE | 2019-04-05 08:21 | PCM.PN.OB ---
Subjective: Some cramping with contractions. Bleeding light. Objective: Afeb VSS - Physical Exam General: Alert, Oriented x3, Cooperative, No apparent distress Lungs: Clear to auscultation, Normal air movement Cardiovascular: Regular rate, Regular Rhythm Abdomen: Soft, Non Tender, Non-Distended Extremities: No edema Skin: No rashes Neurological: Neuro grossly intact Psych/Mental Status: Normal Affect Comment: Lochia light Vital Signs Temp Pulse Resp BP Pulse Ox 97.4 F L 70 15 128/83 H 98 04/05/19 07:53 04/05/19 07:53 04/05/19 07:53 04/05/19 07:53 04/04/19 16:29 Oxygen Delivery Method Room Air Weight: 294 lb Body Mass Index (BMI) 46.0 Intake and Output for Last 24 Hours 04/03/19 04/04/19 04/05/19 23:59 23:59 23:59 Output Total 350 / 350 500 / 500 Balance -350 / -350 -500 / -500 Medical Necessity - Tobacco Use Smoking Status: Former smoker Assessment/Plan All Active Problems Epigastric pain (Acute) Doing well on PP day#2. Cleaared for discharge home today.
--- NOTE | 2019-04-05 09:29 | NURSING ---
0920- patient to W/C in stable condition. infant placed on lap in carseat. patient and infant to private car in stable condition.
--- NOTE | 2019-04-09 17:55 | NURSING ---
Follow up phone call made and left a voicemail. Rock POWELL
== END 2019-04-05 09:20 | disposition home or self-care (01) | DRG 560 ==
PROVIDERS: Admitting Provider Obstetrics & Gynecology; Referring Provider Obstetrics & Gynecology; Visit Provider Obstetrics & Gynecology
DX: O13.4 Gestational [pregnancy-induced] hypertension without significant proteinuria, complicating childbirth (principal); O26.23 Pregnancy care for patient with recurrent pregnancy loss, third trimester; O71.82 Other specified trauma to perineum and vulva; Z3A.39 39 weeks gestation of pregnancy; Z37.0 Single live birth; Z87.891 Personal history of nicotine dependence; O99.214 Obesity complicating childbirth; E66.9 Obesity, unspecified; N94.10 Unspecified dyspareunia; R10.2 Pelvic and perineal pain
CPT/HCPCS: 59050; 85025; 85027; 86850; 86900; 99218; J7120; G0378

== ENCOUNTER 2019-05-10 16:22 | Emergency (ER) | payer MEDICAID, SELFPAY ==
[2019-05-10 16:23] VITALS: BP 148/87; PULSE 91; RESP 16; TEMP 36.8; O2SAT 95; BMI 42.6
--- NOTE | 2019-05-10 16:52 | ED.DCSUM_ITS ---
- ER Visit Summary Date of Service: 05/10/19 Chief Complaint: Right chest wall abscess History of Present Illness: The patient is a 33 F who has an abscess on the right chest wall. She states is been there for approximately a week. It is getting larger. She states that she did express some purulent material a few days ago but it seems to be getting bigger. She is currently breast-feeding and has had decreased breast milk output over the last couple of days as well. She denies any fevers. She is never had anything like this before. She called her OB who advised her to come in for evaluation. Physical Examination: Vital signs reviewed. Skin exam reveals a 3 x 3 cm abscess on the right-hand side of the chest wall. There is some mild surrounding erythema. No evidence of any mastitis seen. Test Results: Patient had an I&D of the abscess on the right chest wall. Only blood return. There was no significant purulence. All indurated tissue was surrounding this area. I will place her on antibiotics. She will need to follow-up with her [employer] MANA[employer] next week at a previously scheduled appointment. I will place her on clindamycin. Emergency Department Course and Treatment: [] Treatment Plan: [] Disposition: Discharge Impression: Right chest wall abscess This note was generated with [employer] dictation software. It may contain incorrect words, spelling, and punctuation that were not noted in review of the chart prior to signing ED Disposition - Plan for ED Patient: Referrals: NOT,DEFINED [NON-STAFF] -
--- NOTE | 2019-05-10 17:36 | ED.DEP ---
ED Disposition - Plan for ED Patient: Disposition: Home or Assisted Living Instructions: ABSCESS, Incision and Drainage Prescriptions: Clindamycin [Cleocin] 450 mg PO TID #90 cap Prescription Printed Referrals: NOT,DEFINED [NON-STAFF] -
[2019-05-10 17:45] VITALS: BP 139/87; PULSE 66; RESP 16; O2SAT 96
== END 2019-05-10 17:46 | disposition home or self-care (01) ==
PROVIDERS: Emergency Provider Emergency Medicine
DX: L02.213 Cutaneous abscess of chest wall (principal)
CPT/HCPCS: 10060; 99283

== ENCOUNTER → 2019-05-13 15:19 | Outpatient (CLI) | payer MEDICAID, SELFPAY ==
[2019-05-10 16:23] VITALS: BMI 42.6
[2019-05-13 17:21] LABS: Internal QC Validated? YES +Cl - CLEAR BKGD; Pregnancy, Serum, hCG Quali. NEGATIVE Negative
== END ==
PROVIDERS: Visit Provider Obstetrics & Gynecology
DX: Z30.9 Encounter for contraceptive management, unspecified (principal)
CPT/HCPCS: 36415; 84144; 84703

== ENCOUNTER → 2019-08-01 15:21 | Outpatient (CLI) | payer MEDICAID, SELFPAY ==
[2019-08-01 17:55] LABS: Chlamydia Trachomatis by PCR Negative (Negative); Neisserai gonorrhoeae by PCR Negative (Negative); Probe Check PASS; Sample Adequacy Control PASS; Specimen Processing Control PASS
[2019-08-07 15:36] LABS: HPV APTIMA, High Risk Negative (Negative); HPV Reflexed? YES, CHARGE PATIENT
== END ==
PROVIDERS: Visit Provider Obstetrics & Gynecology
DX: Z12.4 Encounter for screening for malignant neoplasm of cervix (principal); Z11.3 Encounter for screening for infections with a predominantly sexual mode of transmission
CPT/HCPCS: 87491; 87591; 87624; 88175; G0145

== ENCOUNTER → 2020-08-19 15:21 | Outpatient (CLI) | payer MEDICAID, SELFPAY ==
[2020-08-23 03:06] LABS: Chlamydia By Nucleic Acid AMP Negative (Negative)
[2020-08-23 07:37] LABS: Gonococcus By Nucleic Acid AMP Negative (Negative)
[2020-08-25 15:27] LABS: HPV Reflexed? NOT INDICATED
== END ==
PROVIDERS: Visit Provider Obstetrics & Gynecology
DX: Z12.4 Encounter for screening for malignant neoplasm of cervix (principal); N39.0 Urinary tract infection, site not specified
CPT/HCPCS: 87086; 87088; 87491; 87591; 88175; G0145

== ENCOUNTER 2020-08-31 20:00 | Emergency (ER) | payer MEDICAID, SELFPAY ==
[2020-08-31 20:01] VITALS: BP 144/92; PULSE 102; RESP 18; TEMP 36.6; O2SAT 95; BMI 45.1
--- NOTE | 2020-08-31 20:24 | US_ITS ---
HISTORY: Shooting pelvic pain down legs. [address] scan of the abdomen and pelvis is from just over an hour earlier. Findings: Endovaginal imaging only. The uterus measures 8.4 x 3.6 x 5.1 cm. Myometrium is homogeneous. A IUD is present within the region of the endometrial canal. Adnexal vessels are slightly prominent suggesting multiparity. The cervix is closed. The left ovary measures 4 x 2.1 x 2.5 cm. A follicle is present within the left ovary. Color Doppler imaging is nondiagnostic for flow within the left ovarian parenchyma. Pulse-wave Doppler imaging is nondiagnostic for flow within the left ovary. The right ovary measures 3.5 x 2 x 2.5 cm. Follicles are present on the right ovary. Color Doppler imaging suggests possible flow to right ovarian parenchyma. Pulse-wave Doppler imaging suggests probable arterial flow within the right ovarian parenchyma, however, the best way form for this potential flow is in the periphery of the right ovary possibly within a capsular vessel or a vessel outside of the ovary rather than within the right ovarian parenchyma. US/Transvaginal Non- IMPRESSION: Normal. The study does not demonstrate flow to either ovary. I believe this is likely technical rather than due to ovarian torsion. at 2133 Reported and signed by: Edilson Loomis MD Electronically Signed: Edilson Loomis MD at 21:32 EST Tel , Service support ,
[2020-08-31] MEDS: 0.9% Normal Saline 1,000 ML 1000 ML IV (20:37)
[2020-08-31] MEDS: Ondansetron 4 MG/2 ML Vial IV (20:37)
[2020-08-31] MEDS: HYDROmorphone 1 MG/ML Syringe IV (20:37)
[2020-08-31 20:42] LABS: Absolute Lymphocyte Count 3.75 X10^3/uL (0.83-4.51); Absolute Neutrophil Count 4.5 X10^3/uL (2.0-7.7); Basophil# 0.07 X10^3/uL; Basophil% 0.8 % (0-1); Eosinophil# 0.13 X10^3/uL; Eosinophils% 1.4 % (0-5); Hematocrit 40.8 % (37-47); Hemoglobin 13.2 g/dL (12.0-15.0); Lymphocyte # 3.75 X10^3/ul (4.0); Lymphocyte % 41.8 % (19-41); Mean Corp Hgb Conc 32.4 g/dL (32-36); Mean Corpuscular Hgb 29.3 pg (27.0-32.0); Mean Corpuscular Volume 90.7 fL (81-99); Monocyte# 0.54 X10^3/uL; NRBC Flagged by Analyzer 0 % (0-5); Neutrophil # 4.47 X10^3/uL (2.7-7.7); Neutrophil % 49.9 % (47-70); Platelet Count 303 K/mm3 (150-450); RBC Distribution Width CV 13.3 % (11.6-14.6)
--- NOTE | 2020-08-31 20:49 | CT_ITS ---
STUDY: CT ABDOMEN AND PELVIS WITHOUT CONTRAST REASON FOR EXAM: Female, 34 years old. Cramping pelvic pain RADIATION DOSAGE (If Supplied By Facility): CTDIvol = ( 24.08 ) mGy, DLP = ( 1347.73 ) mGycm TECHNIQUE: Transaxial images were obtained from the dome of the diaphragm to the symphysis pubis without oral contrast, and without intravenous contrast. Sagittal and coronal images were reconstructed. Individualized dose optimization techniques were used for this CT. COMPARISON: October 23 2013, 06 October 2013 FINDINGS: The visualized lung bases are unremarkable. The visualized portions of the heart are within normal limits. Normal liver. Segment 5 5 mm hypodense lesion is a benign cyst and requires no further follow-up. Gallbladder is removed.. Normal spleen. Normal pancreas. There is a 1.5 cm benign right adrenal adenoma. Left adrenal is normal. Normal right kidney. Normal left kidney. Normal visualized stomach. Normal small intestine. Normal colon. The appendix is visualized and appears normal. Normal abdominal aorta. Normal inferior vena cava. BMI is severely elevated with mixed intra-abdominal and extra abdominal lipomatosis. Bladder is decompressed and cannot be evaluated. IUD is in place. There is a 2.5 cm cystic structure in the left ovary, benign-appearing. Normal abdominal wall. Osseous structures are intact with accelerated degenerative change at L5-S1 disc space. Appearance is stable since prior. CT/Abdomen/Pelvis without Cont IMPRESSION: No acute abdominal findings. Stable exam since 2012. Electronically Signed: Elisabethpaul Kian, at 21:31 EST Tel , Service support ,
[2020-08-31 20:56] LABS: Internal QC Validated? YES +Cl - CLEAR BKGD; Pregnancy, Serum, hCG Quali. NEGATIVE Negative
[2020-08-31 21:00] LABS: Anion Gap 6 (5-15); BUN 14 mg/dL (7-18); BUN/Creat Ratio 13.9 RATIO (10-20); Calcium,Total 9.4 mg/dL (8.5-10.1); Chloride 108 mmol/L (98-107); Creatinine, Serum 1.01 mg/dL (0.55-1.02); EST Glomerular Filtration Rate 66 mL/min (>60); Est Glom Filt Rate - Afr Amer 80 mL/min (>60); Estimated Creatinine Clearance 73.47 ml/min; Glucose 86 mg/dL (74-106); Potassium 3.9 mmol/L (3.5-5.1); Sodium Level 141 mmol/L (136-145)
[2020-08-31 21:04] LABS: Mucous, Urine 0 SEEN /hpf (<or=2+); Red Blood Cells-Urine 0 SEEN /hpf (0-5)
[2020-08-31 21:32] LABS: Color, Urine Yellow (Yellow); Glucose, Dipstick Normal (Normal); Ketone-Dipstick Negative (Negative); Leukocyte Esterase-Dipstick 100 /ul (Negative); Nitrite-Dipstick Negative (Negative); Occult Blood-Urine Negative /ul (Negative); Protein-Dipstick 15 mg/dl (Negative); Urine Bilirubin Dipstick Negative (Negative); Urine Clarity Clear (Clear); Urine Urobilinogen Normal (Normal)
[2020-08-31 22:01] LABS: Bacteria 1+ /hpf (None Seen); Squamous Epithelial Cells - UA 5-10 SEEN /hpf (5-10); White Blood Cells 0-5 SEEN /hpf (0-5)
--- NOTE | 2020-08-31 22:14 | ED.VISSUMM ---
- ER Visit Summary Date of Service: 08/31/20 Chief Complaint: Pelvic pain History of Present Illness: The patient is a [address] Hackett. She reports that she has pelvic pain that began 2 months ago. It worsened 2 weeks ago and she saw Dr. Hackett. She reports that she had a pelvic exam and was placed on Bactrim twice a day which she has been taking for the past 2 weeks. States the pain worsened yesterday. It is a sharp, cramping pain is 10 on 10 at worst an 8 out of 10 currently. Is worsened by nothing and relieved by nothing. She is taken Tylenol and ibuprofen without relief. Denies any associated nausea, vomiting, or diarrhea. Her last bowel was today. On the hematochezia. She does complain of dysuria and frequency. She denies any vaginal bleeding or discharge. She has an IUD in place. Physical Examination: Vitals: Stable. Afebrile. General: Well-nourished and well-developed. Head: Normocephalic atraumatic. Neck: Supple, no lymphadenopathy. No JVD. Nontender. Cardiovascular: Regular rate and rhythm. No murmurs. Respiratory: No respiratory distress. Clear to auscultation bilaterally. Abdominal: Soft, moderate diffuse tenderness palpation over her lower abdomen, nondistended, normal bowel sounds. No guarding, rebound, or peritoneal signs. Back: Nontender. Extremities: Nontender, no edema. Skin: Normal color, no rash. Neurologic: Alert and oriented ?3. Cranial nerves II through XII are intact. Normal strength and sensation. Psych: Normal affect. Test Results: CBC shows lymphocytes 42. Chem-7 shows a chloride of 108. UA shows leukocytes, 5-10 epithelial cells, and 1+ bacteria. test is negative. Clinical Impression(s) from Imaging Studies Transvaginal US 08/31/20 20:24 IMPRESSION: Normal. The study does not demonstrate flow to either ovary. I believe this is likely technical rather than due to ovarian torsion. at 2133 Reported and signed by: Edilson Loomis MD Electronically Signed: Edilson Loomis MD at 21:32 EST Tel , Service support , Abdomen/Pelvis CT 08/31/20 20:49 IMPRESSION: No acute abdominal findings. Stable exam since 2012. Electronically Signed: Deniz Langston, at 21:31 EST Tel , Service support , Emergency Department Course and Treatment: Patient was given Dilaudid and Zofran IV. She is resting more comfortably. Treatment Plan: Patient was discussed with Dr. Peralta, on-call for Dr. Hackett, and the results of the ultrasound were discussed. I suspect that this is a problem with the study/our machine. I do not think that she has bilateral ovarian torsion. Dr. Peralta agrees with this. An [facility] report was obtained which shows she is had one prescription for opiates in the past year. She will be discharged prescription for 10 [facility] and instructed to follow-up with Dr. Kebede in 3 to 5 days for another exam. Return to the emergency department for any worsening symptoms. Disposition: To home in improved and stable condition. Impression: 1. Pelvic pain, uncertain cause. This note was generated with [employer] dictation software. It may contain incorrect words, spelling, and punctuation that were not noted in review of the chart prior to signing ED Disposition - Plan for ED Patient: Disposition: Home or Assisted Living Instructions: ED Pelvic Pain [facility] Prescriptions: Hydrocodone Bitart/Apap 5-325 [[facility] 5MG-325MG] 1 tab PO Q4H PRN PRN 2 Days #10 tab PRN Reason: Pain Prescription Printed Referrals: Teodoro Hackett MD [STAFF PHYSICIAN] - 3-5 Days
[2020-08-31 22:32] VITALS: BP 135/82; PULSE 98; RESP 18; O2SAT 98
== END 2020-08-31 22:33 | disposition home or self-care (01) ==
LOC: ED 20:30
PROVIDERS: Emergency Provider Emergency Medicine
DX: R10.2 Pelvic and perineal pain (principal); R30.0 Dysuria; K92.1 Melena; Z90.49 Acquired absence of other specified parts of digestive tract
CPT/HCPCS: 74176; 76830; 80048; 81001; 84703; 85025; 93976; 96361; 96374; 96375; 99282; J7030; A4216; J2405

== ENCOUNTER 2022-05-04 18:29 | Emergency (ER) | payer MEDICAID, SELFPAY ==
[2022-05-04 18:30] VITALS: BP 137/89; PULSE 88; RESP 16; TEMP 37.1; O2SAT 98; BMI 45.7
--- NOTE | 2022-05-04 18:40 | CT_ITS ---
STUDY: CT BRAIN WITHOUT CONTRAST REASON FOR EXAM: Female, 36 years old. HEADACHE trauma TECHNIQUE: Transaxial CT imaging of the brain was performed without administration of intravenous contrast material. Individualized dose optimization techniques were used for this CT. COMPARISON: None FINDINGS: Normal calvarium. Normal soft tissues. Normal size ventricles and extra-axial spaces for the patient''s age. Normal white matter tracts of the cerebral hemispheres. Normal basal ganglia and thalami. Normal brainstem. Normal cerebellum. There is no intracranial hemorrhage. There are no findings of an acute ischemic infarction. Normal visualized paranasal sinuses. ASPECTS 10 CT/Brain/Head without Contrast IMPRESSION: There are no acute intracranial findings. Electronically Signed: Michele Terry MD at 19:06 EDT ,
--- NOTE | 2022-05-04 18:40 | CT_ITS ---
STUDY: CT Spine Cervical W/O Contrast Injection 05/04/2022 7:07 PM REASON FOR EXAM: Female, 36 years old. NECK PAIN trauma HISTORY: NECK PAIN trauma TECHNIQUE: High resolution transaxial imaging was performed without intravenous administration of contrast material. Sagittal and coronal images were reconstructed. Individualized dose optimization techniques were used for this CT. COMPARISON: None FINDINGS: Normal craniovertebral junction. Normal anterior atlantoaxial articulation. Normal odontoid process. There is straightening of the normal cervical lordosis. Normal vertebral bodies and posterior osseous elements. C2-3: Normal endplates. Normal disc height and morphology. Normal central canal and intervertebral neuroforamina. C3-4: Normal endplates. Normal disc height and morphology. Normal central canal and intervertebral neuroforamina. C4-5: Normal endplates. Normal disc height and morphology. Normal central canal and intervertebral neuroforamina. C5-6: Normal endplates. Normal disc height and morphology. Normal central canal and intervertebral neuroforamina. C6-7: Normal endplates. Normal disc height and morphology. Normal central canal and intervertebral neuroforamina. C7-T1: Normal endplates. Normal disc height and morphology. Normal central canal and intervertebral neuroforamina. Normal visualized soft tissue structures. CT/Spine Cervical without Contras IMPRESSION: (NOT LISTED IN ORDER OF SIGNIFICANCE) There is altered curvature of the normal cervical lordosis. This can suggest neck strain. Electronically Signed: Michele Terry MD at 19:07 EDT ,
--- NOTE | 2022-05-04 18:41 | EX.ED.DYSGE1 ---
HPI History of Present Illness Chief Complaint: Head Injury Informant: patient Onset/Context/Timing Onset: Today Current Severity: Moderate Maximum Severity: Moderate Narrative Narrative: Patient presents secondary to head and neck pain. She was trying to redo a trunk to put blankets in. She was putting contact paper in the inside of it when the lid closed on her head. She did not feel she had any injuries and kept working. A second time the lid closed on her head causing a small laceration to the top of her scalp. She was able to get bleeding controlled with then developed dizziness, nausea, left arm tingling. PFSH PFSH Medical History no medical history no medical history Home Medications meclizine 50 mg tablet (Antivert) 50 mg PO BID PRN dizziness #10 tabs 05/04/22 [Rx Last Taken Unknown] ondansetron 4 mg disintegrating tablet 4 mg PO Q8H PRN nausea and vomiting #10 tabs 05/04/22 [Rx Last Taken Unknown] Allergy/AdvReac Type Severity Reaction Status Date / Time Penicillins Allergy Unknown Verified 05/04/22 18:32 morphine AdvReac Vomiting Verified 05/04/22 18:32 Social History Smoking Status: Former smoker ROS ROS ED Constitutional Constitutional ED: Denies chills or fever(s) Eyes Eyes: Denies change in vision or discharge from eye(s) ENT ENT ED: Denies discharge from eye(s), rhinorrhea or sore throat Cardiovascular Cardiovascular: Denies chest pain or palpitations Respiratory/Chest Respiratory/Chest: Denies cough or dyspnea Gastrointestinal Gastrointestinal: Reports nausea and vomiting; Denies abdominal pain or diarrhea Genitourinary Genitourinary ED: Denies difficulty urinating or dysuria Musculoskeletal Musculoskeletal: Reports neck pain; Denies back pain or extremity pain Integumentary Denies Abrasions or rash Neurologic Neurologic: Reports headache(s) and paresthesias Psychiatric Psychiatric: Denies anxiety or depression Allergic/Immunologic Allergic/Immunologic ED: Denies lip swelling or urticaria EXAM Physical Exam Const Vital Signs: 05/04/22 18:30 05/04/22 18:36 Temperature 98.8 F Temperature Source Temporal Pulse Rate 88 Respiratory Rate 16 Respiratory Effort Normal Non-Labored Respiratory Pattern Normal Blood Pressure 137/89 H Blood Pressure Mean 105 Pulse Ox 98 Oxygen Delivery Method Room Air Positive well nourished and well developed General Appearance ED: well developed HEENT Reports moist mucous membranes HEENT Narrative: 1/2 cm laceration to the top of the scalp with no active bleeding. Eyes PERRL and EOMs intact bilaterally Neck Neck Narrative: C-spine tenderness. No step-offs. Chest Wall inspection of chest normal and palpation of chest normal Resp normal respiratory effort and clear to auscultation bilaterally Cardio regular rate and regular rhythm GI normal to inspection, nondistended, normoactive bowel sounds and non-tender Palpation: soft Neuro oriented x3 Neuro Narrative: Patient has slightly weaker hand grasp on left. She is right-hand dominant. She reports slight decrease sensation to light touch in the left upper extremity. Skin no rashes or lesions noted MDM MDM MDM Narrative Medical decision making narrative: Patient initially given Zofran for nausea and sent for CT scan of the head and C-spine. Radiography Diagnostic Testing: Clinical Impression(s) from Imaging Studies Brain CT 05/04/22 18:40 IMPRESSION: There are no acute intracranial findings. Electronically Signed: Michele Terry MD at 19:06 EDT , Cervical Spine CT 05/04/22 18:40 IMPRESSION: (NOT LISTED IN ORDER OF SIGNIFICANCE) There is altered curvature of the normal cervical lordosis. This can suggest neck strain. Electronically Signed: Michele Terry MD at 19:07 EDT , Treatment and Re-Evaluation Narrative: On repeat evaluation patient did report nausea was improved however when she opened her eyes she felt the room was spinning. CT scan of the head reveals no acute findings. CT the C-spine shows only straightening of the normal lordosis. Lidoderm patch is placed on her neck and patient is given liter IV fluid. P.o. Antivert is given. On repeat evaluation patient does report improvement in her symptoms. She will be given prescription for Zofran as well as Antivert. Tetanus update will be provided. Discharge Plan Triage Chief Complaint: Head Injury Other Complaint: Laceration ED Provider: Floresita Schroeder Dx/Rx/DC Orders Clinical Impression: Closed head injury, Neck muscle spasm Instructions: ED Concussion, ED Muscle Spasm Prescriptions: New Antivert 50 mg tablet 50 mg PO BID PRN (Reason: dizziness) Qty: 10 0RF ondansetron 4 mg tablet,disintegrating 4 mg PO Q8H PRN (Reason: nausea and vomiting) Qty: 10 0RF Primary Care Provider: Care Physician,No Primary Referrals: Shae Santillan MD [STAFF PHYSICIAN] - 1-2 Weeks Care Physician,No Primary [Primary Care Provider] - Disposition Disposition: Home, Self Care
[2022-05-04] MEDS: Ondansetron ODT 4 MG Tablet PO (18:44)
--- NOTE | 2022-05-04 19:44 | CM.ED ---
SW Note Referral Source: Case Find Referral Reason: No Primary Care Physician (PCP) SW reviewed chart and noted that patient has no PCP. SW provided patient with list of [facility] and [facility] Physician List for reference. SW also provided patient with handout ?Where to go When?. No other issues or concerns voiced at this time. SW remains available for any additional needs. Plan: Provided patient with PCP information Sana ROYAL
[2022-05-04] MEDS: Meclizine HCl 25 MG Tablet PO (19:50)
[2022-05-04] MEDS: 0.9% Normal Saline 1,000 ML 1000 ML IV (19:51)
[2022-05-04] MEDS: Lidocaine 5% Patch 1 PATCH TOPICAL (19:51)
[2022-05-04] MEDS: Diphth,Pertuss(Acell),Tet Vac 0.5 ML Vial IM (20:55)
[2022-05-04 21:25] VITALS: BP 128/89; PULSE 74; RESP 16; O2SAT 97
[2022-05-04 21:26] VITALS: RESP 16
== END 2022-05-04 21:49 | disposition home or self-care (01) ==
PROVIDERS: Emergency Provider Emergency Medicine; Visit Provider Emergency Medicine
DX: S09.90XA Unspecified injury of head, initial encounter (principal); M62.838 Other muscle spasm; Z87.891 Personal history of nicotine dependence; R11.0 Nausea; W26.2XXA Contact with edge of stiff paper, initial encounter
CPT/HCPCS: 70450; 72125; 90715; 99283; J7030; A4216

== ENCOUNTER 2022-07-08 17:23 | Emergency (ER) | payer MEDICAID, SELFPAY ==
[2022-07-08 17:24] VITALS: BP 150/89; PULSE 88; RESP 16; TEMP 36.4; O2SAT 100; BMI 45.6
--- NOTE | 2022-07-08 18:15 | ED.VIS.GI ---
HPI HPI - GI History of Present Illness Chief Complaint: Abd Pain Narrative Narrative: 36-year-old female presenting with pelvic pain that she has had for about a month. Is progressively worsening. She used to see Dr. Hackett for obstetrics but apparently he has retired. She sees Dr. Peralta now. She tried to make an appointment but it scheduled too far out. She states today her pain made her double over and she started vomiting. Patient denies any fever. She denies constipation or diarrhea. She denies dysuria or hematuria but does feel like she has to force herself to void. She states at times she gets pain radiation to the bilateral flanks. She points to the bilateral lower quadrant/pelvic region where pain is. She has not had any vaginal discharge. She states her last normal menstrual period was about 2 months ago. She states that she does have bleeding every couple of weeks and she spots. He is not on control. PFSH PFSH Home Medications meclizine 50 mg tablet (Antivert) 50 mg PO BID PRN dizziness #10 tabs 05/04/22 [Rx Last Taken Unknown] ondansetron 4 mg disintegrating tablet 4 mg PO Q8H PRN nausea and vomiting #10 tabs 05/04/22 [Rx Last Taken Unknown] hydrocodone-acetaminophen 5-325mg 5mg-325mg 1 tab PO Q6H PRN pain 3 days #10 tabs 07/08/22 [Rx Last Taken Unknown] ondansetron 4 mg disintegrating tablet 4 mg PO Q8H PRN nausea and vomiting #10 tabs 07/08/22 [Rx Last Taken Unknown] Allergy/AdvReac Type Severity Reaction Status Date / Time Penicillins Allergy Unknown Verified 07/08/22 17:23 morphine AdvReac Vomiting Verified 07/08/22 17:23 Surgical History History of cholecystectomy Hx of tonsillectomy Social History Smoking Status: Former smoker ROS ROS ED Constitutional Constitutional ED: Denies chills or fever(s) ENT ENT ED: Denies rhinorrhea or sore throat Cardiovascular Cardiovascular: Denies chest pain or palpitations Respiratory/Chest Respiratory/Chest: Denies cough or dyspnea Gastrointestinal Gastrointestinal: Reports abdominal pain, nausea and vomiting Genitourinary Genitourinary ED: Denies dysuria or hematuria Musculoskeletal Musculoskeletal: Reports back pain; Denies arthralgias Integumentary Denies abscess Neurologic Neurologic: Denies headache(s) or paresthesias Psychiatric Psychiatric: Denies anxiety or depression EXAM Physical Exam Const Vital Signs: 07/08/22 17:24 07/08/22 21:24 Temperature 97.6 F L Temperature Source Temporal Pulse Rate 88 68 Respiratory Rate 16 14 Blood Pressure 150/89 H 146/98 H Blood Pressure Mean 109 114 Pulse Ox 100 98 Oxygen Delivery Method Room Air Positive well nourished and obese General Appearance ED: NAD; Negative for pallor Nutritional Appearance: obese HEENT normocephalic Eyes PERRL and EOMs intact bilaterally Neck no lymphadenopathy Resp normal respiratory effort Auscultation: Negative for rales, rhonchi or wheezes Cardio regular rate and regular rhythm GI GI Narrative: Lower pelvic pain bilaterally. No midline tenderness. Abdomen soft and nondistended. Back/Spine no CVA tenderness Neuro CN's II-XII intact bilaterally Sensorium / Orientation: alert Motor Exam: strength 5/5 throughout Psych mental status grossly normal and thought process normal Skin no wounds General Skin Exam: Negative for jaundice or pallor MDM MDM MDM Narrative Medical decision making narrative: Patient presenting with lower pelvic pain. Abdomen is soft but she developed has pelvic tenderness on exam. An IV was established and patient was given morphine, Zofran. Blood work is obtained and her CBC shows a slight leukocytosis at 12.7. Hemoglobin 14. Hematocrit 42.3, platelets 286. Renal function electrolytes are normal. Serum hCG is negative. Urinalysis negative for infection. I obtained a transvaginal ultrasound which shows a complex right ovarian cyst containing low-level echoes which is probably hemorrhagic. After being medicated the patient feels well. I will place her on [place] for home as well as Zofran. She is counseled to follow-up with Dr. Peralta from OB. Return precautions discussed. Impression: 1. Nausea/vomiting 2. Pelvic pain 3. Hemorrhagic ovarian cyst Lab Data Attestation: I reviewed the patient's lab results. Labs: Laboratory Results - last 24 hr 07/08/22 07/08/22 07/08/22 18:30 18:30 18:30 WBC 12.7 H RBC 4.73 Hgb 14.0 Hct 42.3 MCV 89.4 MCH 29.6 MCHC 33.1 RDW Std Deviation 44.1 H RDW Coeff of Waldo 13.4 Plt Count 286 MPV 11.8 Immature Gran % (Auto) 0.400 Neut % (Auto) 58.9 Lymph % (Auto) 34.3 [place] % (Auto) 5.1 Eos % (Auto) 0.9 Baso % (Auto) 0.4 Absolute Neuts (auto) 7.5 Absolute Lymphs (auto) 4.35 Nucleated RBC % 0 Sodium 140 Potassium 4.3 Chloride 105 Carbon Dioxide 27.0 Anion Gap 8 BUN 15 Creatinine 0.94 Estim Creat Clear Calc 74.45 Est GFR (MDRD) Af Amer 86 Est GFR (MDRD) Non-Af 71 BUN/Creatinine Ratio 16.0 Glucose 107 H Calcium 9.8 Serum , Qual NEGATIVE Urine Color Urine Clarity Urine pH Ur Specific [place] Urine Protein Urine Glucose (UA) Urine Ketones Urine Occult Blood Urine Nitrite Urine Bilirubin Urine Urobilinogen Ur Leukocyte Esterase Urine RBC Urine WBC Ur Squamous Epith Cells Urine Bacteria Urine Mucus 07/08/22 18:30 WBC RBC Hgb Hct MCV MCH MCHC RDW Std Deviation RDW Coeff of Waldo Plt Count MPV Immature Gran % (Auto) Neut % (Auto) Lymph % (Auto) [place] % (Auto) Eos % (Auto) Baso % (Auto) Absolute Neuts (auto) Absolute Lymphs (auto) Nucleated RBC % Sodium Potassium Chloride Carbon Dioxide Anion Gap BUN Creatinine Estim Creat Clear Calc Est GFR (MDRD) Af Amer Est GFR (MDRD) Non-Af BUN/Creatinine Ratio Glucose Calcium Serum , Qual Urine Color Straw Urine Clarity Clear Urine pH 6.0 Ur Specific [place] 1.015 Urine Protein Negative Urine Glucose (UA) Normal Urine Ketones Negative Urine Occult Blood Negative Urine Nitrite Negative Urine Bilirubin Negative Urine Urobilinogen Normal Ur Leukocyte Esterase 25 H Urine RBC 0 SEEN Urine WBC 0-5 SEEN Ur Squamous Epith Cells 5-10 SEEN Urine Bacteria 1+ Urine Mucus 0 SEEN Radiography Diagnostic Testing: Clinical Impression(s) from Imaging Studies Transvaginal US 07/08/22 18:41 IMPRESSION: 1. Complex right ovarian cyst containing low level echoes, probable hemorrhagic cyst. ACR White Paper guidelines (Garg, et. al. Radiology 2010; 256(3):943-954) suggest no follow-up is necessary. 2. Mild free fluid. Electronically Signed: Viktoriya Quinonez MD at 20:08 EDT Reading Location ID and State: [id number] / Tel , Service support , Discharge Plan Triage Chief Complaint: Abd Pain ED Provider: Nilo Jeff Dx/Rx/DC Orders Instructions: ED Ovarian Cyst Prescriptions: New hydrocodone-acetaminophen 5-325 mg tablet 1 tab PO Q6H PRN (Reason: pain) 3 Days Qty: 10 0RF ondansetron 4 mg tablet,disintegrating 4 mg PO Q8H PRN (Reason: nausea and vomiting) Qty: 10 0RF No Action Antivert 50 mg tablet 50 mg PO BID PRN (Reason: dizziness) Qty: 10 0RF ondansetron 4 mg tablet,disintegrating 4 mg PO Q8H PRN (Reason: nausea and vomiting) Qty: 10 0RF Primary Care Provider: Care Physician,No Primary Referrals: Dewey Peralta MD [Med Staff - Active Staff] - As soon as possible Care Physician,No Primary [Primary Care Provider] - Disposition Disposition: Home, Self Care
[2022-07-08 18:37] LABS: Mucous, Urine 0 SEEN /hpf (<or=2+); Red Blood Cells-Urine 0 SEEN /hpf (0-5)
[2022-07-08 18:39] LABS: Color, Urine Straw (Yellow); Glucose, Dipstick Normal (Normal); Ketone-Dipstick Negative (Negative); Leukocyte Esterase-Dipstick 25 /ul (Negative); Nitrite-Dipstick Negative (Negative); Occult Blood-Urine Negative /ul (Negative); Protein-Dipstick Negative (Negative); Specific Gravity, Urine 1.015 (1.002-1.030); Urine Bilirubin Dipstick Negative (Negative); Urine Clarity Clear (Clear); Urine Urobilinogen Normal (Normal)
--- NOTE | 2022-07-08 18:41 | US_ITS ---
EXAM: US PELVIS TRANSVAGINAL CLINICAL INDICATION: pelvic pain TECHNIQUE: Transvaginal pelvic ultrasound was performed with grayscale and color Doppler imaging. Transvaginal imaging was used for better evaluation of the endometrium and adnexa. This report was created using [employer] report generation technology. COMPARISON: 08/31/2020. FINDINGS: UTERUS/CERVIX: The uterus is normal in size and echogenicity measuring 10 x 4.4 x 4.8 cm. Endometrial thickness is normal measuring 1.1 cm. There is no uterine mass. RIGHT OVARY: Right ovary is normal in size measuring 4.1 x 2 x 3.6 cm. There is a 2.8 x 1.4 cm cystic lesion in the right ovary containing low level echoes. Arterial and venous flow are documented. LEFT OVARY: Left ovary is normal in size and echogenicity measuring 2.9 x 2.5 x 2.2 cm. No mass or dominant cyst. Arterial and venous flow are documented. FREE FLUID: Mild free fluid in the cul-de-sac. US/Transvaginal Non- IMPRESSION: 1. Complex right ovarian cyst containing low level echoes, probable hemorrhagic cyst. ACR White Paper guidelines (Garg, et. al. Radiology 2010; 256(3):943-954) suggest no follow-up is necessary. 2. Mild free fluid. Electronically Signed: Viktoriya Quinonez MD at 20:08 EDT Reading Location ID and State: [id number] / Tel , Service support ,
[2022-07-08 18:42] LABS: Absolute Lymphocyte Count 4.35 X10^3/uL (0.83-4.51); Absolute Neutrophil Count 7.5 X10^3/uL (2.0-7.7); Basophil# 0.05 X10^3/uL; Basophil% 0.4 % (0-1); Eosinophil# 0.11 X10^3/uL; Eosinophils% 0.9 % (0-5); Hematocrit 42.3 % (37-47); Lymphocyte # 4.35 X10^3/ul (0.83-4.51); Lymphocyte % 34.3 % (19-41); Mean Corp Hgb Conc 33.1 g/dL (32-36); Mean Corpuscular Hgb 29.6 pg (27.0-32.0); Mean Corpuscular Volume 89.4 fL (81-99); Mean Platelet Vol. 11.8 fl (6.2-12.0); Monocyte# 0.65 X10^3/uL; Monocyte% 5.1 % (0-10); NRBC Flagged by Analyzer 0 % (0-5); Neutrophil # 7.46 X10^3/uL (2.7-7.7); Neutrophil % 58.9 % (47-70); Platelet Count 286 K/mm3 (150-450); RBC Distribution Width CV 13.4 % (11.6-14.6); RBC Distribution Width SD 44.1 fl (35.1-43.9); Red Blood Count 4.73 M/mm3 (4.2-5.4); White Blood Count 12.7 K/mm3 (4.4-11.0)
[2022-07-08 18:49] LABS: Bacteria 1+ /hpf (None Seen); Squamous Epithelial Cells - UA 5-10 SEEN /hpf (5-10); White Blood Cells 0-5 SEEN /hpf (0-5)
[2022-07-08] MEDS: Ondansetron 4 MG/2 ML Vial IV (18:49)
[2022-07-08] MEDS: HYDROmorphone 0.5 MG/0.5 ML SYRINGE IV (18:50)
[2022-07-08 18:53] LABS: Anion Gap 8 (5-15); BUN 15 mg/dL (7-18); Calcium,Total 9.8 mg/dL (8.5-10.1); Chloride 105 mmol/L (98-107); Creatinine, Serum 0.94 mg/dL (0.55-1.02); EST Glomerular Filtration Rate 71 mL/min (>60); Est Glom Filt Rate - Afr Amer 86 mL/min (>60); Estimated Creatinine Clearance 74.45 ml/min; Glucose 107 mg/dL (74-106); Potassium 4.3 mmol/L (3.5-5.1); Sodium Level 140 mmol/L (136-145)
[2022-07-08 19:16] LABS: Internal QC Validated? YES +Cl - CLEAR BKGD; Pregnancy, Serum, hCG Quali. NEGATIVE Negative
--- NOTE | 2022-07-08 21:02 | CM.ED ---
SW Note Referral Source: Case Find Referral Reason: No Primary Care Physician (PCP) SW reviewed chart and noted that patient has no PCP. SW provided patient with list of [facility] and [facility] Physician List for reference. SW also provided patient with handout ?Where to go When?. No other issues or concerns voiced at this time. SW remains available for any additional needs. Plan: Provided patient with PCP information Sana ROYAL
[2022-07-08 21:24] VITALS: BP 146/98; PULSE 68; RESP 14; O2SAT 98
[2022-07-08 21:53] VITALS: BP 159/111; PULSE 77; RESP 16; O2SAT 98
[2022-07-08] MEDS: HYDROcodone Bitartrate/Apap 5/325 Tablet PO (22:00)
== END 2022-07-08 22:02 | disposition home or self-care (01) ==
PROVIDERS: Emergency Provider Student in an Organized Health Care Education/Training Program; Visit Provider Student in an Organized Health Care Education/Training Program
DX: R11.2 Nausea with vomiting, unspecified (principal); N83.201 Unspecified ovarian cyst, right side; Z87.891 Personal history of nicotine dependence; R10.2 Pelvic and perineal pain; E66.9 Obesity, unspecified
CPT/HCPCS: 76830; 80048; 81001; 84703; 85025; 93976; 96374; 96375; 99284; J7030; A4216; J2405

== ENCOUNTER 2022-11-28 08:45 | Emergency (ER) | payer MEDICAID, SELFPAY ==
[2022-11-28 08:46] VITALS: BP 181/90; PULSE 91; RESP 16; TEMP 36.1; O2SAT 100; BMI 45.6
--- NOTE | 2022-11-28 09:05 | EX.ED.DYSGE1 ---
HPI History of Present Illness Chief Complaint: Abscess Informant: patient Onset/Context/Timing Onset: Days (4) Context: Gradual Onset Timing: Continuous Quality: sore Location: R forearm Current Severity: Moderate Maximum Severity: Moderate Worsened by: palpation Relieved by: nothing Associated Symptoms Associated Symptoms: scant d/c this AM. no fevers/systemic sx. Narrative Narrative: 37-year-old healthy female states she had spontaneous onset of painful swollen area right mid forearm, the pain radiates up and down the forearm, she think she could have been bitten by something, she is noted no necrotic tissue just redness and swelling and a scant amount of discharge on the bandage this morning. No IV drug use. No systemic symptoms. PFSH PFSH Medical History no medical history no medical history Home Medications meclizine 50 mg tablet (Antivert) 50 mg PO BID PRN dizziness #10 tabs 05/04/22 [Rx Last Taken Unknown] ondansetron 4 mg disintegrating tablet 4 mg PO Q8H PRN nausea and vomiting #10 tabs 05/04/22 [Rx Last Taken Unknown] hydrocodone-acetaminophen 5-325mg 5mg-325mg 1 tab PO Q6H PRN pain 3 days #10 tabs 07/08/22 [Rx Last Taken Unknown] ondansetron 4 mg disintegrating tablet 4 mg PO Q8H PRN nausea and vomiting #10 tabs 07/08/22 [Rx Last Taken Unknown] sulfamethoxazole 800 mg-trimethoprim 160 mg tablet 1 tab PO BID #20 TABLETS 11/28/22 [Rx Last Taken Unknown] Allergy/AdvReac Type Severity Reaction Status Date / Time Penicillins Allergy Unknown Verified 11/28/22 08:46 morphine AdvReac Vomiting Verified 11/28/22 08:46 Surgical History History of cholecystectomy Hx of tonsillectomy Social History Smoking Status: Former smoker ROS ROS ED Constitutional Constitutional ED: Denies chills or fever(s) Musculoskeletal Musculoskeletal: Reports extremity pain; Denies neck pain Integumentary Reports as per HPI and abscess; Denies Abrasions or rash Neurologic Neurologic: Denies paresthesias or weakness EXAM Physical Exam Const Vital Signs: 11/28/22 08:46 Temperature 96.9 F L Temperature Source Temporal Pulse Rate 91 Respiratory Rate 16 Blood Pressure 181/90 H Blood Pressure Mean 120 Pulse Ox 100 Oxygen Delivery Method Room Air Positive well nourished and well developed General Appearance ED: well developed and NAD Neck full ROM and supple Back/Spine normal ROM and normal to inspection Extremity Extremity Narrative: Tender skin abscess dorsum right forearm otherwise full range of motion elbow, wrist, all compartments soft and nondistended Neuro oriented x3, no focal motor deficits and no sensory deficits noted Sensorium / Orientation: alert Psych mental status grossly normal and thought process normal Skin no wounds Skin Narrative: 3 cm pointing indurated extremely tender abscess dorsal right mid forearm, no lymphangitis, there is some surrounding cellulitis but no spontaneous discharge suppressible. Rashes: no rashes MDM MDM MDM Narrative Medical decision making narrative: The appearance of this is that of a MRSA abscess in my judgment. There is no evidence of necrotic tissue or different discoloration or blue/white discoloration, to suggest a black or brown recluse bite here. I reassured her, I am not able to rule out the possibility of a spider bite, however I would not change the treatment of this. I&D was performed see the procedure note, and she will be placed on Bactrim to cover MRSA. We discussed reasons to return and proper care at home. Procedures Other Procedures Procedure(s): Incision and drainage simple, cutaneous abscess right forearm: Prepped and draped in sterile fashion with chlorhexidine and isopropanol, local anesthesia with 2 cc plain 1% lidocaine, followed by incision centrally with a #11 blade, expressing moderate amount of purulent material and some blood. Deloculated bluntly gently with scissors, more pus expressed, irrigated the cavity with saline, expressed that gently and dressed with bacitracin. Too small to pack. Tolerated well no complications. Discharge Plan Triage Chief Complaint: Abscess ED Provider: Shelton Hatfield Dx/Rx/DC Orders Clinical Impression: Abscess of forearm, right Instructions: ED Abscess Incision And Drainage Prescriptions: New sulfamethoxazole-trimethoprim [sulfamethoxazole-trimethoprim] 800-160 mg tablet 1 tab PO BID Qty: 20 0RF No Action Antivert 50 mg tablet 50 mg PO BID PRN (Reason: dizziness) Qty: 10 0RF ondansetron 4 mg tablet,disintegrating 4 mg PO Q8H PRN (Reason: nausea and vomiting) Qty: 10 0RF hydrocodone-acetaminophen 5-325 mg tablet 1 tab PO Q6H PRN (Reason: pain) 3 Days Qty: 10 0RF ondansetron 4 mg tablet,disintegrating 4 mg PO Q8H PRN (Reason: nausea and vomiting) Qty: 10 0RF Primary Care Provider: Care Physician,No Primary Referrals: Doctor,Your [Non-Staff] - As Needed Disposition Disposition: Home, Self Care
[2022-11-28] MEDS: Lidocaine 1% (20 ml mdv) 20 ML Vial INFILT (09:56)
[2022-11-28 09:57] VITALS: BP 121/69; PULSE 71; RESP 15; O2SAT 97
== END 2022-11-28 09:59 | disposition home or self-care (01) ==
PROVIDERS: Emergency Provider Emergency Medicine; Visit Provider Emergency Medicine
DX: L02.413 Cutaneous abscess of right upper limb (principal); Z87.891 Personal history of nicotine dependence
CPT/HCPCS: 10060; 99283

== ENCOUNTER 2022-12-24 18:21 | Emergency (ER) | payer MEDICAID, SELFPAY ==
[2022-12-24 18:22] VITALS: BP 169/110; PULSE 96; RESP 18; TEMP 36.6; O2SAT 100; BMI 46.0
--- NOTE | 2022-12-24 18:54 | US_ITS ---
STUDY: ULTRASOUND OF THE FEMALE PELVIS - COMPLETE REASON FOR EXAM: Female, 37 years old. Ovarian torsion. LMP: Unknown. TECHNIQUE: Transabdominal and Transvaginal TECHNICAL QUALITY: Adequate. COMPARISON: July 08, 2022. FINDINGS: The uterus is anteverted and is in a midline position. The uterus measures 9.7 x 4.9 x 4.4 cm. There is a Nabothian cyst of the cervix. The endometrium measures 10.7 mm in thickness, and is hyperechoic. There is no demonstrated endometrial mass. There is irregular echogenic tissue seen in the posterior fundus. Question fibroid. I.U.D. - The patient does not have an I.U.D. The right ovary is visualized. The right ovary measures 3.2 x 3.5 x 1.7 cm. There is no right ovarian cyst or ovarian mass. There is no visualized right adnexal mass or complex lesion. There is normal arterial and normal venous vascularity. The left ovary is visualized. The left ovary measures 3.8 x 2.5 x 2.2 cm. There are multiple follicles of the left ovary with a 1.3 x 1.4 x 1.2 cm dominant cyst which contains central echogenic focus.. There is no visualized left adnexal mass or complex lesion. There is normal arterial and normal venous vascularity. There is no fluid in the cul-de-sac. The urinary bladder cannot be evaluated as the patient voided prior to the exam. Polycystic ovary disease: No. US/Transvaginal Non- IMPRESSION: 1. No evidence of ovarian torsion. 2. Complex left ovarian cyst. ACR White Paper guidelines (Garg, et. al. Radiology 2010;256(3):943-954) suggest surgical evaluation or pelvic MRI. 3. Study is otherwise grossly unremarkable. Electronically Signed: Flash Andres DO at 21:03 EST Reading Location ID and State: [address] [place] [address] Tel [phone], Service support ,
--- NOTE | 2022-12-24 18:57 | EX.ED.DYSGE1 ---
HPI <ARSENIO Martinez - Last Filed: 12/24/22 20:59> History of Present Illness Chief Complaint: Back Narrative Narrative: Patient is a 37-year-old female with history of ovarian cyst, obesity, presents to the emergency department with complaints of lower pelvic pain worse on the right than the left. 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 She is scheduled to talk to her MOLD CLEANING AND STORAGE SUPERVISOR regarding a full or partial hysterectomy. Patient states that she has vaginal drainage daily. States that she has had 1 month of complete bleeding. Patient states that the pain started for the last 4 days, she states that it is worse, going through to her back, this is having her difficulty moving. Patient cannot get comfortable. She is here for evaluation. Denies any fever or chills. She complains of nausea, no vomiting. PFSH <ARSENIO Martinez - Last Filed: 12/24/22 20:59> PFSH Home Medications meclizine 50 mg tablet (Antivert) 50 mg PO BID PRN dizziness #10 tabs 05/04/22 [Rx Last Taken Unknown] ondansetron 4 mg disintegrating tablet 4 mg PO Q8H PRN nausea and vomiting #10 tabs 05/04/22 [Rx Last Taken Unknown] hydrocodone-acetaminophen 5-325mg 5mg-325mg 1 tab PO Q6H PRN pain 3 days #10 tabs 07/08/22 [Rx Last Taken Unknown] ondansetron 4 mg disintegrating tablet 4 mg PO Q8H PRN nausea and vomiting #10 tabs 07/08/22 [Rx Last Taken Unknown] sulfamethoxazole 800 mg-trimethoprim 160 mg tablet 1 tab PO BID #20 TABLETS 11/28/22 [Rx Last Taken Unknown] ibuprofen 600 mg tablet 600 mg PO Q6H PRN PRN pain #20 TABLETS 12/24/22 [Rx Last Taken Unknown] ondansetron 4 mg disintegrating tablet 4 mg PO Q8H PRN PRN Nausea #10 tabs 12/24/22 [Rx Last Taken Unknown] oxycodone-acetaminophen 5 mg-325 mg tablet (Percocet) 1 tab PO Q8H PRN pain 3 days #10 tabs 12/24/22 [Rx Last Taken Unknown] Allergy/AdvReac Type Severity Reaction Status Date / Time Penicillins Allergy Unknown Verified 11/28/22 08:46 morphine AdvReac Vomiting Verified 11/28/22 08:46 Surgical History History of cholecystectomy Hx of tonsillectomy Social History Smoking Status: Former smoker ROS <ARSENIO Martinez - Last Filed: 12/24/22 20:59> ROS ED ROS Narrative Constitutional: Negative for fever, chills, weight loss, weakness Eyes: Negative for vision loss, vision change, double vision ENT: Negative for any sore throat, ear pain, congestion Cardiovascular: Negative for any chest pain, tightness, palpitations Respiratory: Negative for any cough, sputum production, hemoptysis, dyspnea, dyspnea on exertion, orthopnea Gastrointestinal: Negative for any vomiting, diarrhea, constipation, blood in stool, blood in vomit. Positive for lower abdominal pain, pelvic pain, nausea : Negative for any urinary frequency, dysuria, retention, blood in urine Muscle skeletal: Negative for any muscle joint pain, stiffness, myalgias, arthralgias, neck pain, back pain Neurological: Negative for any headache, syncope, numbness or tingling, dizziness Skin: Negative for any rashes, lumps, itching, abrasions, lacerations Psychiatric: Negative for any depression, anxiety, stress, suicidal ideation, homicidal ideation Hematologic: Negative for any easy bruising, excessive bruising, easy bleeding Allergies: Negative for any eczema, hives, rash EXAM <ARSENIO Martinez - Last Filed: 12/24/22 20:59> Physical Exam Narrative Exam Narrative: Vital signs reviewed. Patient alert and orient x4. Patient does appear to be uncomfortable secondary to right lower quadrant, suprapubic pain. HEET: Head normocephalic atraumatic, TMs clear bilaterally. Posterior pharynx is clear, moist mucous membranes. Nares clear bilaterally. Neck: Supple with no lymphadenopathy or tenderness. No signs of meningismus, negative jolt sign. Cardiac: Regular rate and rhythm no murmurs gallops or rubs, equal peripheral pulses bilaterally. Respiratory: Lungs clear to auscultation bilaterally. No chest tenderness. Abdomen: Soft,nondistended. No abdominal bruit or pulsatile masses. No hepatosplenomegaly. Patient has pain to the right lower suprapubic area, only slight pain to the left area. No suprapubic tenderness. Extremities: No peripheral edema, no signs of gross trauma or deformity. Active full range of motion of all extremities. Neuro: Cranial nerves II through XII intact, no focal neurological deficits. Skin: Clean dry and intact with no rash, purpura, petechiae, vesicles or pustules. Backs/flank: No CVA tenderness, no midline spinal tenderness, no deformity. Psych: Normal mood and affect. No SI, HI or acute psychosis. Const Vital Signs: 12/24/22 18:22 12/24/22 19:21 12/24/22 20:00 Temperature 98 F Temperature Source Temporal Pulse Rate 96 77 80 Respiratory Rate 18 17 19 H Blood Pressure 169/110 H 158/88 H 173/78 H Blood Pressure Mean 129 111 109 Pulse Ox 100 100 100 Oxygen Delivery Method Room Air Room Air Room Air 12/24/22 21:43 12/24/22 22:11 Temperature Temperature Source Pulse Rate 72 Respiratory Rate 16 16 Blood Pressure 148/90 H Blood Pressure Mean Pulse Ox 99 Oxygen Delivery Method Room Air <Dr. Noé Patel DO - Last Filed: 12/24/22 22:31> Physical Exam Const Vital Signs: 12/24/22 18:22 12/24/22 19:21 12/24/22 20:00 Temperature 98 F Temperature Source Temporal Pulse Rate 96 77 80 Respiratory Rate 18 17 19 H Blood Pressure 169/110 H 158/88 H 173/78 H Blood Pressure Mean 129 111 109 Pulse Ox 100 100 100 Oxygen Delivery Method Room Air Room Air Room Air 12/24/22 21:43 12/24/22 22:11 Temperature Temperature Source Pulse Rate 72 Respiratory Rate 16 16 Blood Pressure 148/90 H Blood Pressure Mean Pulse Ox 99 Oxygen Delivery Method Room Air MANA <ARSENIO Martinez - Last Filed: 12/24/22 20:59> MDM Lab Data Labs: Laboratory Results - last 24 hr 12/24/22 12/24/22 12/24/22 19:05 19:05 19:37 WBC 9.3 RBC 4.42 Hgb 13.0 Hct 40.4 MCV 91.4 MCH 29.4 MCHC 32.2 RDW Std Deviation 45.0 H RDW Coeff of Waldo 13.2 Plt Count 254 MPV 11.6 Immature Gran % (Auto) 0.200 Neut % (Auto) 49.0 Lymph % (Auto) 42.9 H [place] % (Auto) 6.0 Eos % (Auto) 1.3 Baso % (Auto) 0.6 Absolute Neuts (auto) 4.6 Absolute Lymphs (auto) 4.00 Nucleated RBC % 0 Sodium 141 Potassium 3.9 Chloride 110 H Carbon Dioxide 23.0 Anion Gap 8 BUN 15 Creatinine 0.92 Estim Creat Clear Calc 78.38 Est GFR (MDRD) Af Amer 88 Est GFR (MDRD) Non-Af 73 BUN/Creatinine Ratio 16.2 Glucose 103 Calcium 9.4 Total Bilirubin 0.20 AST 13 L ALT 29 Alkaline Phosphatase 51 Total Protein 7.3 Albumin 3.7 Globulin 3.6 Albumin/Globulin Ratio 1.0 Lipase 137 Urine Color Yellow Urine Clarity Sl. Cloudy Urine pH 5.0 Ur Specific [place] 1.025 Urine Protein Negative Urine Glucose (UA) Normal Urine Ketones Negative Urine Occult Blood 25 H Urine Nitrite Negative Urine Bilirubin Negative Urine Urobilinogen Normal Ur Leukocyte Esterase 25 H Urine RBC 0-5 SEEN Urine WBC 0-5 SEEN Ur Squamous Epith Cells 5-10 SEEN Urine Bacteria 2+ Urine Mucus 3+ Urine Test Negative Radiography Diagnostic Testing: Clinical Impression(s) from Imaging Studies Transvaginal US 12/24/22 18:54 IMPRESSION: 1. No evidence of ovarian torsion. 2. Complex left ovarian cyst. ACR White Paper guidelines (Garg, et. al. Radiology 2010;256(3):943-954) suggest surgical evaluation or pelvic MRI. 3. Study is otherwise grossly unremarkable. Electronically Signed: Flash Andres DO at 21:03 EST Reading Location ID and State: [employer] / [place]: [place] off the lights Tel [phone], Service support , Abdomen/Pelvis CT 12/24/22 19:56 IMPRESSION: 1. Small cyst left ovary. This is also correlated with the complex cyst seen on ultrasound. 2. Otherwise normal CT of the abdomen and pelvis. Electronically Signed: Flash Andres DO at 21:16 EST Reading Location ID and State: [employer] / [place] Tel [phone], Service support , Differential Diagnosis Differential Diagnosis: Ovarian torsion Differential Diagnosis: Ruptured ovarian cyst Additional Tests and Interventions Diagnositc testing considered but not performed: CT scan and pelvis Treatment and Re-Evaluation :: All radiologic examinations were read, reviewed by the emergency department attending. From these reads, a plan of care will be put in place. Patient appears to be uncomfortable secondary to pelvic pain. Patient will receive a full abdominal work-up, secondary to the patient's history ovarian cyst, the patient's pain in the right suprapubic area, I did call in the range technician concerning for ovarian torsion. Patient will receive basic laboratory values as well as 1 mg of Dilaudid, Zofran, IV fluids. Patient states that she did feel relief after the initial dose of IV Dilaudid. Patient state states that she went to sit up and then had a sudden onset of epigastric pain that was very severe. Patient secondary to this pain did receive a CT scan of the abdomen pelvis. She will also receive a transvaginal ultrasound concerning for any ovarian torsion, ruptured ovarian cyst, ovarian mass. CT scan of the abdomen pelvis is concerning for any acute cholecystitis, appendicitis, bowel obstruction.Patient's laboratory studies shows a normal CBC, patient's chemistries were unremarkable, lipase was negative. Patient is currently awaiting results from ultrasound as well as CAT scan. <Dr. Noé Patel, DO - Last Filed: 12/24/22 22:31> MDM MDM Narrative Medical decision making narrative: Interventions / MDM: Differential diagnosis: Ovarian cyst, ovarian torsion, appendicitis Diagnosis considered but do not suspect: N/A My EKG interpretation: N/A Imaging independently reviewed and interpreted by myself: CT abdomen pelvis IV contrast left ovarian cyst, normal appendix. As read by radiology. Ultrasound pelvis, complex left ovarian cyst largest diameter 1.4 cm with normal blood flow. 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 I perform my own [id number] evaluation. I agree with the plan of work-up. Progressive right pelvic pain over 4 days more intense this evening. History multiple ovarian cyst no surgical interventions. She is on Depo shots every 3 months there is discussion with her Newspaper Clipper for hysterectomy. She is followed closely by them. She followed by Dr. Peralta. Pain increased in the evening more excruciating than previous cysts. Exam alert nontoxic slight tenderness right pelvis there is no guarding or rebound. Work-up initiated due to increasing pain more normal rule out ovarian torsion. Laboratory studies with abdominal labs no. However awaiting staff for ultrasound reported increasing pain in the epigastrium, additional pain medicine Dilaudid was ordered she is ordered for CT scan. Results of most return at the same time complex left ovarian cyst with normal flow normal appendix and other structures. Re-evaluation: stable, abdominal exam was soft. She was updated on her findings with the cyst. Prescription with meds to beds for Zofran and ibuprofen and Percocet to use as needed she will call her promotional demonstrator on Monday for follow-up. Return precautions. Disposition discussed with patient/family/significant other: Patient and significant other Case discussed with consulting clinician: N/A Lab Data Labs: Laboratory Results - last 24 hr 12/24/22 12/24/22 12/24/22 19:05 19:05 19:37 WBC 9.3 RBC 4.42 Hgb 13.0 Hct 40.4 MCV 91.4 MCH 29.4 MCHC 32.2 RDW Std Deviation 45.0 H RDW Coeff of Waldo 13.2 Plt Count 254 MPV 11.6 Immature Gran % (Auto) 0.200 Neut % (Auto) 49.0 Lymph % (Auto) 42.9 H [place] % (Auto) 6.0 Eos % (Auto) 1.3 Baso % (Auto) 0.6 Absolute Neuts (auto) 4.6 Absolute Lymphs (auto) 4.00 Nucleated RBC % 0 Sodium 141 Potassium 3.9 Chloride 110 H Carbon Dioxide 23.0 Anion Gap 8 BUN 15 Creatinine 0.92 Estim Creat Clear Calc 78.38 Est GFR (MDRD) Af Amer 88 Est GFR (MDRD) Non-Af 73 BUN/Creatinine Ratio 16.2 Glucose 103 Calcium 9.4 Total Bilirubin 0.20 AST 13 L ALT 29 Alkaline Phosphatase 51 Total Protein 7.3 Albumin 3.7 Globulin 3.6 Albumin/Globulin Ratio 1.0 Lipase 137 Urine Color Yellow Urine Clarity Sl. Cloudy Urine pH 5.0 Ur Specific [place] 1.025 Urine Protein Negative Urine Glucose (UA) Normal Urine Ketones Negative Urine Occult Blood 25 H Urine Nitrite Negative Urine Bilirubin Negative Urine Urobilinogen Normal Ur Leukocyte Esterase 25 H Urine RBC 0-5 SEEN Urine WBC 0-5 SEEN Ur Squamous Epith Cells 5-10 SEEN Urine Bacteria 2+ Urine Mucus 3+ Urine Test Negative Radiography Diagnostic Testing: Clinical Impression(s) from Imaging Studies Transvaginal US 12/24/22 18:54 IMPRESSION: 1. No evidence of ovarian torsion. 2. Complex left ovarian cyst. ACR White Paper guidelines (Garg, et. al. Radiology 2010;256(3):943-954) suggest surgical evaluation or pelvic MRI. 3. Study is otherwise grossly unremarkable. Electronically Signed: Flash Andres DO at 21:03 EST Reading Location ID and State: [employer] [place] / [place] Tel [phone], Service support , Abdomen/Pelvis CT 12/24/22 19:56 IMPRESSION: 1. Small cyst left ovary. This is also correlated with the complex cyst seen on ultrasound. 2. Otherwise normal CT of the abdomen and pelvis. Electronically Signed: Flash Andres DO at 21:16 EST Reading Location ID and State: [employer] [place] / [place] Tel [phone], Service support , Discharge Plan Triage Chief Complaint: Back ED Midlevel Provider: Nikunj Monroy ED Provider: Noé Patel Dx/Rx/DC Orders Clinical Impression: Epigastric pain, Pelvic pain, Complex cyst of left ovary Instructions: ED Ovarian Cyst Prescriptions: New ibuprofen 600 mg tablet 600 mg PO Q6H PRN PRN (Reason: pain) Qty: 20 0RF oxycodone-acetaminophen [Percocet] 5-325 mg tablet 1 tab PO Q8H PRN (Reason: pain) 3 Days Qty: 10 0RF ondansetron [ondansetron] 4 mg tablet,disintegrating 4 mg PO Q8H PRN PRN (Reason: Nausea) Qty: 10 0RF No Action Antivert 50 mg tablet 50 mg PO BID PRN (Reason: dizziness) Qty: 10 0RF ondansetron 4 mg tablet,disintegrating 4 mg PO Q8H PRN (Reason: nausea and vomiting) Qty: 10 0RF hydrocodone-acetaminophen 5-325 mg tablet 1 tab PO Q6H PRN (Reason: pain) 3 Days Qty: 10 0RF ondansetron 4 mg tablet,disintegrating 4 mg PO Q8H PRN (Reason: nausea and vomiting) Qty: 10 0RF sulfamethoxazole-trimethoprim [sulfamethoxazole-trimethoprim] 800-160 mg tablet 1 tab PO BID Qty: 20 0RF Primary Care Provider: Care Physician,No Primary Referrals: Nidhi Peralta DO [Med Staff - Active Staff] - 2 Days Care Physician,No Primary [Primary Care Provider] - Activity Restrictions/Additional Instructions: 1.4 cm complex left ovarian cyst on ultrasound. Normal flow. CT scan abdomen pelvis also negative for for any acute process. Labs are stable. Take medication as prescribed, follow-up with your promotional demonstrator. Disposition Disposition: Home, Self Care Discharge Date/Time: 12/24/22 22:20
[2022-12-24 19:14] LABS: Absolute Neutrophil Count 4.6 X10^3/uL (2.0-7.7); Basophil# 0.06 X10^3/uL; Basophil% 0.6 % (0-1); Eosinophil# 0.12 X10^3/uL; Eosinophils% 1.3 % (0-5); Hematocrit 40.4 % (37-47); Lymphocyte % 42.9 % (19-41); Mean Corp Hgb Conc 32.2 g/dL (32-36); Mean Corpuscular Hgb 29.4 pg (27.0-32.0); Mean Corpuscular Volume 91.4 fL (81-99); Mean Platelet Vol. 11.6 fl (6.2-12.0); Monocyte# 0.56 X10^3/uL; NRBC Flagged by Analyzer 0 % (0-5); Neutrophil # 4.57 X10^3/uL (2.7-7.7); Platelet Count 254 K/mm3 (150-450); RBC Distribution Width CV 13.2 % (11.6-14.6); Red Blood Count 4.42 M/mm3 (4.2-5.4); White Blood Count 9.3 K/mm3 (4.4-11.0)
[2022-12-24 19:21] VITALS: BP 158/88; PULSE 77; RESP 17; O2SAT 100
[2022-12-24] MEDS: 0.9% Normal Saline 1,000 ML 1000 ML IV (19:25)
[2022-12-24] MEDS: Ondansetron 4 MG/2 ML Vial IV (19:26)
[2022-12-24] MEDS: HYDROmorphone 1 MG/ML Syringe IV (19:30)
[2022-12-24 19:33] LABS: AST(SGOT) 13 U/L (15-37); Alanine Aminotransfer ALT/SGPT 29 U/L (13-56); Albumin, Serum 3.7 g/dL (3.2-5.0); Alkaline Phosphatase 51 U/L (45-117); Anion Gap 8 (5-15); BUN 15 mg/dL (7-18); BUN/Creat Ratio 16.2 RATIO (10-20); Calcium,Total 9.4 mg/dL (8.5-10.1); Chloride 110 mmol/L (98-107); Creatinine, Serum 0.92 mg/dL (0.55-1.02); EST Glomerular Filtration Rate 73 mL/min (>60); Est Glom Filt Rate - Afr Amer 88 mL/min (>60); Estimated Creatinine Clearance 78.38 ml/min; Globulin 3.6 g/dL (2.2-4.2); Glucose 103 mg/dL (74-106); Lipase 137 U/L (73-393); Potassium 3.9 mmol/L (3.5-5.1); Protein, Total 7.3 g/dL (6.4-8.2); Sodium Level 141 mmol/L (136-145)
[2022-12-24 19:53] LABS: Color, Urine Yellow (Yellow); Glucose, Dipstick Normal (Normal); Ketone-Dipstick Negative (Negative); Leukocyte Esterase-Dipstick 25 /ul (Negative); Nitrite-Dipstick Negative (Negative); Occult Blood-Urine 25 /ul (Negative); Protein-Dipstick Negative (Negative); Specific Gravity, Urine 1.025 (1.002-1.030); Urine Bilirubin Dipstick Negative (Negative); Urine Clarity Sl. Cloudy (Clear); Urine Urobilinogen Normal (Normal)
--- NOTE | 2022-12-24 19:56 | CT_ITS ---
INDICATION: Abdominal pain. EXAMINATION: CT ABDOMEN AND PELVIS WITH CONTRAST - CT Abdomen And Pelvis W/ Contrast Injection TECHNIQUE: Helically acquired images were obtained of the abdomen and pelvis following IV contrast. A radiation dose optimization technique was used for this scan. IV Contrast dosage and agent: 100 mL of Isovue 370 Oral contrast: None. COMPARISON: August 31, 2020 pelvic ultrasound, December 24, 2022. FINDINGS: LOWER CHEST: Lung bases are clear. No cardiomegaly or pericardial effusion. LIVER: Homogeneous. No focal mass. GALLBLADDER AND BILIARY TREE: The gallbladder is not visualized and is thought to be absent No intra- or extrahepatic biliary ductal dilation. PANCREAS: No focal cystic or solid mass. SPLEEN: Normal size without focal cystic or solid mass. ADRENAL GLANDS: No nodules. KIDNEYS AND URETERS: Normal renal size and position. No hydronephrosis. Normal ureters. PERITONEUM: No ascites or free air. No other fluid collection. BOWEL: Normal stomach. Normal small intestine normal colon. Normal appendix. LYMPH NODES: No enlarged mesenteric or retroperitoneal lymph nodes. VESSELS: Normal abdominal aorta. Normal IVC. URINARY BLADDER: Unremarkable. REPRODUCTIVE ORGANS: Normal uterus. There is low-attenuation structure in the left ovary thought to represent a cyst. Centimeters the complex cyst seen on ultrasound. ABDOMINAL WALL: No discrete abdominal or pelvic wall hernia. BONES: Mild degenerative changes lower lumbar spine. CT/Abdomen/Pelvis W IV Cont ONLY IMPRESSION: 1. Small cyst left ovary. This is also correlated with the complex cyst seen on ultrasound. 2. Otherwise normal CT of the abdomen and pelvis. Electronically Signed: Flash Andres DO at 21:16 EST ,
[2022-12-24 20:00] VITALS: BP 173/78; PULSE 80; RESP 19; O2SAT 100
[2022-12-24 20:06] LABS: White Blood Cells 0-5 SEEN /hpf (0-5)
[2022-12-24 20:07] LABS: Bacteria 2+ /hpf (None Seen); Internal QC Validated? YES +Cl - CLEAR BKGD; Mucous, Urine 3+ /hpf (<or=2+); Pregnancy, Urine Negative Negative; Red Blood Cells-Urine 0-5 SEEN /hpf (0-5); Squamous Epithelial Cells - UA 5-10 SEEN /hpf (5-10)
[2022-12-24 21:43] VITALS: BP 148/90; PULSE 72; RESP 16; O2SAT 99
[2022-12-24 22:11] VITALS: RESP 16
== END 2022-12-24 22:20 | disposition home or self-care (01) ==
PROVIDERS: Nurse Practitioner; Emergency Provider Emergency Medicine; Visit Provider Emergency Medicine
DX: R10.13 Epigastric pain (principal); N83.202 Unspecified ovarian cyst, left side; Z87.891 Personal history of nicotine dependence; E66.9 Obesity, unspecified
CPT/HCPCS: 74177; 76830; 80053; 81001; 81025; 83690; 85025; 87086; 87088; 93976; 99284; J7030; Q9967; A4216; J2405

== ENCOUNTER 2023-01-02 10:47 | Emergency (ER) | payer MEDICAID, SELFPAY ==
[2023-01-02 10:49] VITALS: BP 125/94; PULSE 91; RESP 18; TEMP 36.6; O2SAT 99; BMI 45.1
--- NOTE | 2023-01-02 11:09 | EX.ED.DYSGE1 ---
HPI History of Present Illness Chief Complaint: Abscess Narrative Narrative: 37-year-old female who denies significant past medical history presents with area on her right upper chest that is reddened and painful. She states that there was a small pimple that she noticed on the area where her bra was rubbing against her skin. She thought nothing of it. The area became more irritated over the last 3 days. She denies any fevers but states she felt chilled yesterday. No nausea or vomiting. The area has become more reddened and firm, and she has pain radiating up towards her neck, and down her chest, and worse when she tries to raise her right arm completely. PFSH PFSH Medical History no medical history no medical history Home Medications cyclobenzaprine 5 mg tablet 5 mg PO TID PRN PRN Pain 01/02/23 [History Last Taken Unknown] sulfamethoxazole 800 mg-trimethoprim 160 mg tablet (Bactrim DS) 1 tab PO BID #14 tabs 01/02/23 [Rx Last Taken Unknown] Allergy/AdvReac Type Severity Reaction Status Date / Time Penicillins Allergy Unknown Verified 01/02/23 10:48 morphine AdvReac Vomiting Verified 01/02/23 10:48 Surgical History History of cholecystectomy Hx of tonsillectomy Social History Smoking Status: Former smoker ROS ROS ED ROS Narrative Constitutional: No fever, positive chills. HEENT: No sore throat. No neck pain. No loss of vision. No rhinorrhea. Cardiovascular: No chest pain. No palpitations. No pedal edema. Respiratory: No cough, no shortness of breath. Abdominal: No abdominal pain. No nausea. No vomiting. Genitourinary: No dysuria. No hematuria. Musculoskeletal: No myalgias. No arthralgias. Neurologic: No headaches. No dizziness. No lightheadedness. Skin: No rash. Redness and firmness to right upper chest. Psychiatric: No depression. No anxiety. EXAM Physical Exam Narrative Exam Narrative: Afebrile. Vital signs noted. Nontoxic-appearing. HEENT: Normocephalic. Atraumatic. PERRL, EOMI. Neck soft and supple. No point tenderness or step off. Cardiovascular: Regular rate and rhythm. No murmurs, rubs, or gallops appreciated. Respiratory: No tachypnea. Lungs clear to auscultation bilaterally. Gastrointestinal: Abdomen soft, nontender, with normoactive bowel sounds. No rebound or guarding. Neurological: Awake. Alert. Nonfocal, nonlateralizing. Skin: No rash. Positive erythema with induration to right upper chest. Small area of eschar/area of previous lesion/break in skin. Musculoskeletal: No pedal edema. Full range of motion extremities. Const Vital Signs: 01/02/23 10:49 Temperature 97.8 F Temperature Source Temporal Pulse Rate 91 Respiratory Rate 18 Blood Pressure 125/94 H Blood Pressure Mean 104 Pulse Ox 99 Oxygen Delivery Method Room Air MDM MDM MDM Narrative Medical decision making narrative: Concern is for cutaneous abscess of the right chest wall. Patient was given her first dose of Bactrim DS here in the emergency department. I will write her prescription for 10 days. I discussed at length with her incision and drainage versus needle aspiration. Given the amount of pain that she is having, she elected for incision and drainage. See procedure note for detail. She was told of the risk of continued infection, scarring of her skin, and the possibility that there will only be return of blood as the area is more indurated. Procedure note: Povidine iodine was used as skin preparation. Lidocaine 1% was used as a local anesthetic. Stellate incision was made using a #11 blade near the area of eschar. There was minimal return of serosanguineous material, no purulent material. Area was probed and loculated and lightly irrigated. I do not feel that packing is indicated. Patient tolerated procedure well. Given that there was not a large amount of purulent drainage, I do think that that was more indurated area. She will take [id number] analgesics. She was written a prescription for Bactrim DS and referred to a primary care provider. I feel she be discharged safely home with follow-up. Return instructions to the emergency department were reviewed. Disposition is discharged home in stable condition. History & Record Review Discussion w/independent historian: Patient Additional record(s) reviewed:: Prior ED visit Discharge Plan Triage Chief Complaint: Abscess ED Provider: Bernardo Bashir Dx/Rx/DC Orders Clinical Impression: Cutaneous abscess of chest wall, Status post incision and drainage Instructions: ED Abscess Incision And Drainage, ED Cellulitis Prescriptions: New sulfamethoxazole-trimethoprim [Bactrim DS] 800-160 mg tablet 1 tab PO BID Qty: 14 0RF No Action cyclobenzaprine 5 mg tablet 5 mg PO TID PRN PRN (Reason: Pain) Primary Care Provider: Care Physician,No Primary Referrals: Kaylene Hunt DO [Med Staff - Chief Recordist] - 2 Days for wound check Care Physician,No Primary [Primary Care Provider] - Disposition Disposition: Home, Self Care
[2023-01-02] MEDS: Smz/Tmp Ds Tablet 1 TABLET PO (11:27)
[2023-01-02 12:01] VITALS: RESP 16; TEMP 36.6; O2SAT 100
[2023-01-02] MEDS: Lidocaine 1% (20 ml mdv) 20 ML Vial INFILT (12:17)
== END 2023-01-02 12:17 | disposition home or self-care (01) ==
PROVIDERS: Emergency Provider Emergency Medicine; Visit Provider Emergency Medicine
DX: L02.213 Cutaneous abscess of chest wall (principal); Z87.891 Personal history of nicotine dependence
CPT/HCPCS: 10060; 99283

== ENCOUNTER → 2023-01-05 | Outpatient (CLI) | payer MEDICAID, SELFPAY ==
[2023-01-05 10:59] LABS: Absolute Lymphocyte Count 2.55 X10^3/uL (0.83-4.51); Absolute Neutrophil Count 4.1 X10^3/uL (2.0-7.7); Basophil# 0.05 X10^3/uL; Basophil% 0.7 % (0-1); Eosinophil# 0.07 X10^3/uL; Hematocrit 39.3 % (37-47); Hemoglobin 12.6 g/dL (12.0-15.0); Lymphocyte # 2.55 X10^3/ul (0.83-4.51); Lymphocyte % 35.7 % (19-41); Mean Corp Hgb Conc 32.1 g/dL (32-36); Mean Corpuscular Hgb 29.1 pg (27.0-32.0); Mean Corpuscular Volume 90.8 fL (81-99); Mean Platelet Vol. 11.9 fl (6.2-12.0); Monocyte# 0.33 X10^3/uL; Monocyte% 4.6 % (0-10); NRBC Flagged by Analyzer 0 % (0-5); Neutrophil # 4.11 X10^3/uL (2.7-7.7); Neutrophil % 57.6 % (47-70); Platelet Count 318 K/mm3 (150-450); RBC Distribution Width SD 43.6 fl (35.1-43.9); Red Blood Count 4.33 M/mm3 (4.2-5.4); White Blood Count 7.1 K/mm3 (4.4-11.0)
[2023-01-05 11:16] LABS: Anion Gap 8 (5-15); BUN 15 mg/dL (7-18); BUN/Creat Ratio 14.3 RATIO (10-20); Calcium,Total 9.9 mg/dL (8.5-10.1); Chloride 104 mmol/L (98-107); Creatinine, Serum 1.05 mg/dL (0.55-1.02); EST Glomerular Filtration Rate 63 mL/min (>60); Est Glom Filt Rate - Afr Amer 76 mL/min (>60); Glucose 99 mg/dL (74-106); Potassium 4.1 mmol/L (3.5-5.1); Sodium Level 137 mmol/L (136-145)
[2023-01-05 11:46] LABS: HIV - WCH Non-Reactive (Nonreactive); Syphilis Antibodies Non-reactive
[2023-01-06 06:08] LABS: HEPATITIS B SURFACE AG Negative (Negative); Hepatitis B Core Ab Total Negative (Negative)
[2023-01-06 08:36] LABS: Hep B Surface Antibodies Reactive (.)
[2023-01-12 09:27] LABS: HPV APTIMA, High Risk Negative (Negative)
== END | disposition home or self-care (01) ==
PROVIDERS: PCP Obstetrics & Gynecology; Visit Provider Obstetrics & Gynecology
DX: Z12.4 Encounter for screening for malignant neoplasm of cervix (principal); L24.A9 Irritant contact dermatitis due friction or contact with other specified body fluids
CPT/HCPCS: 36415; 80048; 85025; 86703; 86704; 86705; 86706; 86707; 86780; 86803; 87340; 87350; 87624; 88175; G0145

== ENCOUNTER 2023-01-18 07:55 | Outpatient (RCR) | payer MEDICAID, SELFPAY ==
[2023-01-18 08:07] VITALS: BP 150/100; PULSE 90; RESP 20; TEMP 35.7
--- NOTE | 2023-01-18 09:38 | PCM.WC.PN ---
History of Present Illness Date of Service: 01/18/23 Chief Complaint: Abscess on right anterior shoulder Subjective Subjective 37 year old female presents for evaluation of Objective Data Objective Data Vital Signs: Vital Signs Temp Pulse Resp BP 96.2 F L 90 20 H 150/100 H 01/18/23 08:07 01/18/23 08:07 01/18/23 08:07 01/18/23 08:07 Debridement Note Debridement Note Post-Debridement Measurements and Additional Note: Post-Debridement Measurements/Treatment CHARLETTE - Nurse 1 - General Ulcer Assessment Start: 01/18/23 08:07 Freq: Status: Active Protocol: ANTHONY Activity Type Activity Date Activity User E-sign Co-sign Detail Recorded Client Recorded Date Recorded By Document 01/18/23 08:07 DL [id number] 01/18/23 08:19 DL 01/18/23 08:07 CHARLETTE - Today's Visit Information Type of service Initial Visit Arrival Mode Ambulatory Transfer Assistance None Patient Identification Verified (Name & Yes ) Patient Requires Transmission-Based No Precautions Vital Signs Temperature (97.8 F-99.1 F) 96.2 F L Temperature Source Temporal Pulse Rate (60-100) 90 Pulse Location Monitor Respiratory Rate (12-18) 20 H Respiratory rate source Observation Blood Pressure (90/60-120/80) 150/100 H Blood Pressure Mean (mm Hg) 116 Source Monitor Pain Scale: 0-10 Numeric Is Patient Pain Free? Yes Communication Assessment Preferred language Syriac Able to Read Yes Able to Write Yes Communication Tools None Right Hearing Abillity Normal Left Hearing Abillity Normal Visual Assistive Devices Glasses Teaching Assessment Preferences Verbal,Written, Demonstration Barriers to Learning None Readiness To Learn Excellent Willingness to Engage in Self Management High Activies Readiness to Engage in Self Management High Activities Anxiety Level Calm Cooperation Cooperative Perception Coherent Interest in Health Problem Asks Questions Education Importance Acknowledges Need Does Patient Smoke tobacco or other No substances Smoking Status Former smoker Is Patient Diabetic No Functional Assessment Recent Decline in Ability to Perform Denies Any Declines Culture/Voodoo/Medical Center Director Cultural/Voodoo Needs that may affect No Treatment Plan Would you allow our hospital sewer pipe cleaner to No meet you for the purpose of spiritual/ emotional support? Medical Center Director to contact place of temple No Teaching: Wound Center Discharge Instructions -Person Taught Patient *Welcome to the Wound Center -Person Taught Patient CHARLETTE Decker Nurse 1 - General Ulcer Measurement Start: 01/18/23 08:07 Freq: Status: Active Protocol: Activity Type Activity Date Activity User E-sign Co-sign Detail Recorded Client Recorded Date Recorded By Document 01/18/23 08:07 DL [id number] 01/18/23 08:19 DL 01/18/23 08:07 Wound Center Nurse 1 #1 R Shoulder -Current Size (cm) - Length 0.1 -Current Size (cm) - Width 0.1 -Current Size (cm) - Depth 0.1 -Total Square Cm 0.01 -Photo Taken Yes -Exudate Amt None Present -Wound Margin Flat & Intact -Granulation Amt Large (67-100%) -Granulation Quality [place] -Necrosis Amt None Present (0 %) -Structure Exposed N/A -Texture (Bhargavi-wound Skin Appearance) Scarring -Moisture (Bhargavi-wound Skin Appearance) No Abnormality -Color (Bhargavi-wound Skin Appearance) No Abnormality -Temperature (Bhargavi-wound Skin No Abnormality Appearance) (Pt Warm) -Tenderness on Palpation (Bhargavi-wound Yes Skin Appearance) -Ulcer Cleansing Soap and Water -Anesthetic Used 5% Lidocaine Gel - Nurse 2 - General Ulcer CM Notes Start: 01/18/23 08:07 Freq: Status: Active Protocol: Activity Type Activity Date Activity User E-sign Co-sign Detail Recorded Client Recorded Date Recorded By Document 01/18/23 08:37 [id number] 01/18/23 08:44 01/18/23 08:37 Pain Scale: 0-10 Numeric Is Patient Pain Free? Yes - Nurse 3 - General Ulcer D/C NN Start: 01/18/23 08:07 Freq: Status: Active Protocol: Activity Type Activity Date Activity User E-sign Co-sign Detail Recorded Client Recorded Date Recorded By Document 01/18/23 08:44 [id number] [id number] 01/18/23 08:45 01/18/23 08:44 Is Patient Pain Free? Yes - Visit Discharge Discharge Condition Stable Ambulatory Status Ambulatory Transportation Private Auto Medication Reconcilliation completed & Yes provided to patient/care provider Clinical Summary of Care Provided Yes
--- NOTE | 2023-01-18 11:15 | PCM.WC.HP ---
History of Present Illness Date of Service: 01/18/23 Chief Complaint: Right anterior shoulder/chest abscess History of Wound: 37-year-old female presents for evaluation of an abscess on her right anterior shoulder/chest. Over the past 3 months she has had several abscesses on her right arm and now her anterior shoulder/chest. They often come to a head and then drain. She initially thought that the the first couple were spider bites. She has gone to the ED and her PCP for them. Some of them have had an I&D. The most recent one she was in the ED on 01/02/23 because it was red, swollen and painful with the swelling extending up to her neck. Her PCP placed her on Bactrim, told her to wash with antibacterial soap and have her an ointment to put up her nose a couple times per day. None of the abscesses have been cultured. Every time she had an abscess she was treated with an antibiotic and the abscess cleared up. The right shoulder abscess is now healed, but she saw Dr. Jose, general surgeon for evaluation and he removed the sac. She has been having issues with abdominal pain, ovarian cysts, and pelvic/back pain for the past several years. She states her SUPERVISOR SCOURING PADS would like to do a lap to see if she had endometriosis and to evaluate her ovarian cysts, but would like to make sure that these abscesses are cleared up before going forward with surgery. Today she denies fever, chills, nausea or vomiting. Progress of Wound: Right anterior shoulder/chest wound/abscess is healed. There is no erythema or swelling. [facility] Medical History (Updated 01/19/23 @ 17:26 by Yolanda Tenorio SIGNALS INTELLIGENCE ANALYST, SIGNALS INTELLIGENCE ANALYST-C) Alcohol use Anxiety Back pain Depression Former smoker History of steroid therapy Migraine headache Open wound Wears glasses Home Medications cyclobenzaprine 5 mg tablet 5 mg PO TID PRN PRN Pain 01/02/23 [History Last Taken Unknown] cephalexin 500 mg capsule 500 mg PO TID 01/09/23 [History Last Taken Unknown] ibuprofen 600 mg tablet 600 mg PO PRN PRN Pain 01/09/23 [History Last Taken Unknown] paroxetine HCl 20 mg tablet (Paxil) 20 mg PO DAILY 01/09/23 [History Last Taken Unknown] sulfamethoxazole 400 mg-trimethoprim 80 mg tablet (Bactrim) 1 tab PO BID 01/18/23 [History Last Taken Unknown] Allergy/AdvReac Type Severity Reaction Status Date / Time Penicillins Allergy Unknown Verified 01/18/23 08:22 morphine AdvReac Vomiting Verified 01/18/23 08:22 Surgical History (Reviewed 01/19/23 @ 17:14 by Yolanda Tenorio SIGNALS INTELLIGENCE ANALYST, SIGNALS INTELLIGENCE ANALYST-C) History of cholecystectomy Hx of surgical procedure Hx of tonsillectomy Social History Smoking Status: Former smoker ROS Constitutional Constitutional: Denies fatigue or fever(s) Eyes Eyes: Reports none ENT HEENT: Reports none Cardiovascular Cardiovascular: Denies chest pain, diaphoresis, dyspnea or vomiting Respiratory/Chest Respiratory/Chest: Denies cough or dyspnea Gastrointestinal Gastrointestinal: Reports as per HPI and abdominal pain; Denies nausea Genitourinary Genitourinary: Reports abdominal discomfort, low back pain, urinary frequency and other Details: pain with intercourse, abdominal pain Musculoskeletal Musculoskeletal: Reports as per HPI Integumentary Integumentary: Reports as per HPI and sores Neurologic Neurologic: Reports none Psychiatric Psychiatric: Reports none Endocrine Endocrinology: Reports none Vital Signs Vital Signs Vital Signs: 01/18/23 08:07 Temperature 96.2 F L Temperature Source Temporal Pulse Rate 90 Respiratory Rate 20 H Blood Pressure 150/100 H Blood Pressure Mean 116 Blood Pressure Source Monitor Physical Exam Const alert, oriented x3 and no apparent distress General Appearance: cooperative Orientation / Consciousness: awake HEENT normocephalic Eyes General Eye: normal appearance of both eyes Neck full ROM Resp normal respiratory effort, normal air movement, no use of accessory muscles and clear to auscultation bilaterally Effort and Inspection: able to speak in complete sentences Cardio regular rate and regular rhythm GI normal to inspection, nondistended, normoactive bowel sounds and soft to palpation GI Narrative: Abdominal tenderness with palpation across entire lower abdomen to above the pubic bone. Both the right and left side are tender with palpation. Back/Spine normal ROM Extremity full ROM Skin Skin Narrative: Right anterior shoulder/chest with small pink healed scar that is non tender to palpation. No clinical sign of infection. Neuro oriented x3 and CN's II-XII intact bilaterally Psych mental status grossly normal, thought process normal, cooperative and affect normal Debridement Note Debridement Note No debridement was completed: No debridement was completed today Post-Debridement Measurements and Additional Note: Post-Debridement Measurements/Treatment CHARLETTE - Nurse 1 - General Ulcer Assessment Start: 01/18/23 08:07 Freq: Status: Active Protocol: ANTHONY Activity Type Activity Date Activity User E-sign Co-sign Detail Recorded Client Recorded Date Recorded By Document 01/18/23 08:07 DL [id number] 01/18/23 08:19 DL 01/18/23 08:07 CHARLETTE - Today's Visit Information Type of service Initial Visit Arrival Mode Ambulatory Transfer Assistance None Patient Identification Verified (Name & Yes ) Patient Requires Transmission-Based No Precautions Vital Signs Temperature (97.8 F-99.1 F) 96.2 F L Temperature Source Temporal Pulse Rate (60-100) 90 Pulse Location Monitor Respiratory Rate (12-18) 20 H Respiratory rate source Observation Blood Pressure (90/60-120/80) 150/100 H Blood Pressure Mean 116 Source Monitor Pain Scale: 0-10 Numeric Is Patient Pain Free? Yes Communication Assessment Preferred language Portuguese Able to Read Yes Able to Write Yes Communication Tools None Right Hearing Abillity Normal Left Hearing Abillity Normal Visual Assistive Devices Glasses Teaching Assessment Preferences Verbal,Written, Demonstration Barriers to Learning None Readiness To Learn Excellent Willingness to Engage in Self Management High Activies Readiness to Engage in Self Management High Activities Anxiety Level Calm Cooperation Cooperative Perception Coherent Interest in Health Problem Asks Questions Education Importance Acknowledges Need Does Patient Smoke tobacco or other No substances Smoking Status Former smoker Is Patient Diabetic No Functional Assessment Recent Decline in Ability to Perform Denies Any Declines Culture/Cheondoism/E Learning Manager Cultural/Cheondoism Needs that may affect No Treatment Plan Would you allow our hospital histologist to No meet you for the purpose of spiritual/ emotional support? E Learning Manager to contact place of taoism No Teaching: Wound Center Discharge Instructions -Person Taught Patient *Welcome to the Wound Center -Person Taught Patient CHARLETTE - Nurse 1 - General Ulcer Measurement Start: 01/18/23 08:07 Freq: Status: Active Protocol: Activity Type Activity Date Activity User E-sign Co-sign Detail Recorded Client Recorded Date Recorded By Document 01/18/23 08:07 DL [id number] 01/18/23 08:19 DL 01/18/23 08:07 Wound Center Nurse 1 #1 R Shoulder -Current Size (cm) - Length 0.1 -Current Size (cm) - Width 0.1 -Current Size (cm) - Depth 0.1 -Total Square Cm 0.01 -Photo Taken Yes -Exudate Amt None Present -Wound Margin Flat & Intact -Granulation Amt Large (67-100%) -Granulation Quality [place] -Necrosis Amt None Present (0 %) -Structure Exposed N/A -Texture (Bhargavi-wound Skin Appearance) Scarring -Moisture (Bhargavi-wound Skin Appearance) No Abnormality -Color (Bhargavi-wound Skin Appearance) No Abnormality -Temperature (Bhargavi-wound Skin No Abnormality Appearance) (Pt Warm) -Tenderness on Palpation (Bhargavi-wound Yes Skin Appearance) -Ulcer Cleansing Soap and Water -Anesthetic Used 5% Lidocaine Gel - Nurse 2 - General Ulcer CM Notes Start: 01/18/23 08:07 Freq: Status: Active Protocol: Activity Type Activity Date Activity User E-sign Co-sign Detail Recorded Client Recorded Date Recorded By Document 01/18/23 08:37 [id number] 01/18/23 08:44 01/18/23 08:37 Pain Scale: 0-10 Numeric Is Patient Pain Free? Yes - Nurse 3 - General Ulcer D/C NN Start: 01/18/23 08:07 Freq: Status: Active Protocol: Activity Type Activity Date Activity User E-sign Co-sign Detail Recorded Client Recorded Date Recorded By Document 01/18/23 08:44 [id number] 01/18/23 08:45 01/18/23 08:44 Is Patient Pain Free? Yes - Visit Discharge Discharge Condition Stable Ambulatory Status Ambulatory Transportation Private Auto Medication Reconcilliation completed & Yes provided to patient/care provider Clinical Summary of Care Provided Yes Charges/Coding Visit Charges Office Visits / Consults: [id number] OV L4 Est Assessment/Plan Assessment/Plan (1) Open wound: CODE(S): T14.8XXA - Other injury of unspecified body region, initial encounter (2) History of abscess of skin and subcutaneous tissue: CODE(S): Z87.2 - Personal history of diseases of the skin and subcutaneous tissue (3) Abdominal pain: CODE(S): R10.9 - Unspecified abdominal pain (4) Pelvic pain: CODE(S): R10.2 - Pelvic and perineal pain (5) Dyspareunia due to non-psychogenic cause in female: CODE(S): N94.10 - Unspecified dyspareunia (6) Personal history of ovarian cyst: CODE(S): Z87.42 - Personal history of other diseases of the female genital tract PLAN: Plan Patient was evaluated at the wound healing center today for her recent abscess of her right anterior shoulder/chest wound. It was treated with Bactrim and is now healed. She has had several of these abscesses over the past several months that always clear with antibiotics. There are no culture results but with her description of how she thought they were a spider bite makes me believe that they possibly could be MRSA. Her PCP has treated her with Bactrim, antibacterial soap and a nasal antibiotic ointment. This should have helped clear a colonization if she had one. I will have her wash with Hibiclens/chlorhexidine wash 3 times per week from the neck down (no mucous membranes) until her surgery. She can wash with antibacterial soap the other days. She should follow up with her PCP if the abscesses reoccur. She is to follow up with her SUPERVISOR SCOURING PADS for her abdominal pain/ovarian cyst issues. With her history of pelvic pain/dyspareunia, she may benefit from seeing a women's health physical therapist to help with these issues. IF that would not help she could see a Urogynecologist who specializes in pelvic pain, such as Dr. Rajan Davidson in [place].
== END 2023-01-23 13:36 | disposition home or self-care (01) ==
LOC: WC 07:55
PROVIDERS: PCP Nurse Practitioner; Referring Provider Obstetrics & Gynecology; Visit Provider Nurse Practitioner Family
DX: T14.8XXA Other injury of unspecified body region, initial encounter (principal); R22.1 Localized swelling, mass and lump, neck; Z87.891 Personal history of nicotine dependence; S21.109A Unspecified open wound of unspecified front wall of thorax without penetration into thoracic cavity, initial encounter; M54.2 Cervicalgia; Z87.2 Personal history of diseases of the skin and subcutaneous tissue; R10.2 Pelvic and perineal pain; N94.10 Unspecified dyspareunia; Z87.42 Personal history of other diseases of the female genital tract
CPT/HCPCS: 99214; G0463

== ENCOUNTER 2023-02-20 05:56 | Day surgery (SDC) | payer MEDICAID, SELFPAY ==
[2023-02-20] VITALS (7 sets, daily range): BP systolic 125–133; BP diastolic 74–86; PULSE 50–67; RESP 16–18; TEMP 36.1–36.9; O2SAT 97–100; BMI 44.8
[2023-02-20 06:31] LABS: Internal QC Validated? YES +Cl - CLEAR BKGD; Pregnancy, Urine Negative Negative
[2023-02-20] MEDS: Lactated Ringers 1,000 ML 120 ML IV (06:35)
--- NOTE | 2023-02-20 06:38 | PCM.HP.BLA ---
History and Physical Date of Admission: 02/20/23 Chief complaint: Pelvic pain History present illness: 37-year-old arrives for diagnostic laparoscopy possible oophorectomy for pelvic pain. No medical changes since last seen. All questions answered and consent signed. Obstetric history: with a history of 2 vaginal deliveries and 2 SABs Past medical history: Anxiety depression Medications: Paxil, OCP Past surgical history: Tonsillectomy, cholecystectomy Allergies: Penicillin, morphine Social history: Former smoker, denies alcohol or drug use Family history: Denies history DVT or PE Review of systems: Besides above pertinent positives a full review of systems was performed and found to be negative Physical exam: Vitals: Blood pressure 129/74 pulse 61 respiratory rate 18 temperature 97.0 ?F SPO2 97% on room air General: Normal-appearing no acute distress HEENT: Normocephalic/atraumatic no cervical lymphadenopathy Cardiac/respiratory: No use of accessory muscles, nonlabored breathing Abdomen: Soft, nontender, nondistended Extremities: No peripheral edema normal peripheral pulses Psych: Normal affect normal range and not pressured speech Labs: Urine test negative Assessment plan: 37-year-old scheduled for diagnostic laparoscopy possible oophorectomy for pelvic pain. Discussed evaluation and possibility of oophorectomy and its effects on menopause and future fertility. Patient understands risk of the procedure include but are not limited to visceral or vascular injury, prolonged hospitalization, blood loss need for transfusion, reoperation. Patient stated understanding and wished to proceed. All questions were answered and consent was signed.
--- NOTE | 2023-02-20 08:13 | DCINST_ITS ---
Discharge Instructions Diet Discharge Diet: No restrictions Activity Discharge Activity: Return to Normal Activity, May Drive, May Shower and - (No tub baths for 2 weeks) May resume sexual activity in: 4-6 weeks Lifting Restrictions: No lifting over 25 pounds for 2-3 Dressing / Incision Call your doctor if your incision/area has: Continuous Slow Oozing and Foul Smelling Discharge Call your doctor if you observe: Fever of 101 or Higher, Shortness of breath and Chest pain Follow Up Care Please Follow Up With: Dewey Peralta MD When: 2 weeks postoperatively Test Results: Test results from this visit will be discussed in further detail at your follow- up appointment, if applicable. Discharge Plan Admission Attending Provider: Dewey Peralta Primary Care Provider: [place] LINDERMAN MACHINE OPERATOR Discharge Orders/Prescriptions Prescriptions: No Action cyclobenzaprine 5 mg tablet 5 mg PO TID PRN PRN (Reason: Pain) paroxetine HCl [Paxil] 20 mg Tablet 20 mg PO DAILY ibuprofen 600 mg tablet 600 mg PO PRN PRN (Reason: Pain) Referrals / Follow Up: En[place] Grove LINDERMAN MACHINE OPERATOR, LINDERMAN MACHINE OPERATOR-C [Primary Care Provider] - Disposition Disposition (needs filled in before D/C Order can be placed): Home, Self Care
--- NOTE | 2023-02-20 08:14 | PCM.OPRPT ---
Report of Operation Date of Procedure: 02/20/23 Pre-Operative Diagnosis: Pelvic pain Post-Operative Diagnosis: Pelvic pain Surgery/Procedure Performed:: Diagnostic laparoscopy Description of Surgical Findings:: Surgeon: Dewey Peralta MD Anesthesia: General EBL: 10 cc Urine output: 300 cc IV fluids: 900 cc Complications: None Specimen: None Findings: Normal uterus, tubes, and ovaries Consent: Patient arrived with pelvic pain elects for diagnostic laparoscopy. Patient understands risk of the procedure include but are not limited to visceral or vascular injury, prolonged hospitalization, blood loss need for transfusion, reoperation. Patient state understanding wish to proceed. All questions were answered and consent was signed. Procedure: Patient was brought back to the OR where general anesthesia was found to be adequate. Patient was prepared and draped in dorsolithotomy position with yellowfin stirrups. A weighted speculum is placed in the posterior aspect of the vagina and cervical dilators were used dilate cervix. Uterine manipulator was placed. Varies needle was inserted at the umbilicus and water safety test was passed, abdomen was insufflated but increased insufflation pressure noted. Varies needle removed. Supraumbilical 5 mm trocar incision was made and 5 mm trocar was inserted via Optiview. Abdomen was insufflated and above findings were noted. Bilateral lower quadrant 5 mm trocars were inserted under direct visualization. Using atraumatic grasper x2 pelvis and abdomen were explored. Normal uterus, tubes, and ovaries. Right-sided pain evaluated right lower quadrant no findings noted. Abdomen was desufflated, trocars were removed under direct visualization. Good hemostasis was noted. Laparoscopic incisions were closed in subcutaneous fashion and skin glue was placed over the incisions. Uterine manipulator was removed. Good hemostasis was noted. All counts were correct x2. Patient tolerated procedure well and was brought to recovery in stable condition. agricultural extension specialist: Kirk Oates
[2023-02-20] MEDS: Ketorolac 30 MG/ML Syringe IV (08:39)
== END 2023-02-20 09:52 | disposition home or self-care (01) ==
LOC: SDC 05:57 → AC 05:57
PROVIDERS: Anesthesiology; PCP Nurse Practitioner; Referring Provider Obstetrics & Gynecology; Visit Provider Obstetrics & Gynecology
PROC: (CPT 49320; principal; 2023-02-20 07:15)
DX: R10.2 Pelvic and perineal pain (principal); Z87.891 Personal history of nicotine dependence; F41.9 Anxiety disorder, unspecified; F32.A Depression, unspecified; Z87.42 Personal history of other diseases of the female genital tract
CPT/HCPCS: 49320; 00840; 81025; 86850; 86900; 86901; J7120; J2405

== ENCOUNTER → 2023-07-27 | Outpatient (CLI) | payer MEDICAID, SELFPAY ==
[2023-07-27 12:12] LABS: Erythrocyte Sedimentation Rate 3 mm/hr (0-30)
[2023-07-27 13:17] LABS: Amylase 38 U/L (25-115); CPK Total, Creatine Kinase 168 U/L (26-192); CRP < 2.90 mg/L (0.0-3.0); LDH 194 U/L (84-246); Lipase 35 U/L (13-75)
[2023-07-28 15:08] LABS: Anti-Centromere B Ab <0.2 AI (0.0-0.9); Anti-Chromatin <0.2 AI (0.0-0.9); Anti-Jo <0.2 AI (0.0-0.9); Anti-Scleroderma-70 AB <0.2 AI (0.0-0.9); Anti-dsDNA Ab <1 IU/mL (0-9); RNP Ab <0.2 AI (0.0-0.9); SJOGREN'S Anti-SS-A test < 0.2 AI (0.0-0.9); SJOGREN'S Anti-SS-B test < 0.2 AI (0.0-0.9); Smith Ab <0.2 AI (0.0-0.9)
[2023-07-30 16:07] LABS: Albumin 4.2 g/dL (2.9-4.4); Aldolase 4.8 U/L (3.3-10.3); Alpha-1-Globulins 0.2 g/dL (0.0-0.4); Alpha-2-Globulins 0.8 g/dL (0.4-1.0); Cytoplasmic Ab (C-ANCA) <1:20 titer (Neg:<1:20); Endomysial Antibody IgA Negative (Negative); Gamma Globulin 0.9 g/dL (0.4-1.8); Immunoglobulin A 103 mg/dL (87-352); Immunoglobulin E 50 IU/mL (6-495); Immunoglobulin G 994 mg/dL (586-1602); Immunoglobulin M 87 mg/dL (26-217); PROEL- TOTAL PROTEIN 7.2 g/dL (6.0-8.5); Perinuclear Ab (P-ANCA) <1:20 titer (Neg:<1:20); t-Transglutaminase IgA <2 U/mL (0-3)
== END | disposition home or self-care (01) ==
LOC: LAB 11:09
PROVIDERS: PCP Nurse Practitioner; Referring Provider Internal Medicine Gastroenterology; Visit Provider Internal Medicine Gastroenterology
DX: R10.9 Unspecified abdominal pain (principal)
CPT/HCPCS: 36415; 82085; 82150; 82550; 82784; 82785; 83516; 83615; 83690; 84165; 85652; 86140; 86225; 86235; 86255; 86256; 86334

== ENCOUNTER 2023-12-25 13:56 | Emergency (ER) | payer MEDICAID, SELFPAY ==
[2023-12-25 13:56] VITALS: BP 144/103; PULSE 88; RESP 18; TEMP 36.6; O2SAT 100
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
[2023-12-25 15:31] VITALS: BP 144/96; PULSE 89; RESP 20; O2SAT 97
[2023-12-25] MEDS: HYDROmorphone 1 MG/ML Syringe IM ×2 (15:49→16:59)
[2023-12-25] MEDS: Orphenadrine 60 MG/2 ML Ampul IM (15:49)
[2023-12-25] MEDS: Ketorolac 60 MG/2 ML Vial IM (15:49)
[2023-12-25 16:30] VITALS: BP 146/81; PULSE 73; RESP 18; O2SAT 98; O2SAT 99
[2023-12-25] MEDS: Ondansetron ODT 4 MG Tablet PO (17:01)
[2023-12-25 17:35] VITALS: BP 159/87; PULSE 81; RESP 14; TEMP 36.6; O2SAT 97
--- OUTSIDE RECORDS SUMMARY | 2023-12-25 20:42 | XMS RPT_ITS | CCD ---
Author Name Unknown Address [address] [place] [address] Organization [facility] Care Team Providers Care Paint Roller Cover Machine Setter Name Role Phone Unavailable Primary Care Provider Unavailabl e Older SUPERVISOR [employer].PHYSICIAN NON INVASIVE CARDIOLOGIST, [place] Primary Care Provider Reji Bailey MD Primary Care Provider [phone] REJI BAILEY Primary Care Unavailable LEO, REJI Pablo Attending Unavailable OLDER, ENID Attending Unavailable MALDONADOAAMIR Attending Unavailable OLDER, ENID Primary Care Unavailable OLDER, ENID Primary Care Unavailable OLDER, ENID Attending Unavailable O'LUIS ENRIQUE, TORIE Attending Unavailable O'LUIS ENRIQUE, TORIE Referring Unavailable LEO, REJI Pablo Primary Care Unavailable BAILEY, REJI Pablo Primary Care Unavailable O'LUIS ENRIQUE, TORIE Referring Unavailable O'LUIS ENRIQUE, TORIE Attending Unavailable BAILEY, REJI Pablo Primary Care Unavailable BAILEY, REJI Pablo Referring Unavailable OLDER, ENID Referring Unavailable OLDER, ENID Attending Unavailable LEO, REJI Pablo Primary Care Unavailable LEO, REJI Pablo Referring Unavailable BAILEY, REJI Pablo Referring Unavailable LEO, REJI Pablo Primary Care Unavailable Allergies Allergy Classification Reported Allergen(s) Allergy Type Date of Onset Reaction(s) Facility (9 sources) Morphine; Translations: [MORPHINE] Drug Allergy 11-21-2014 Itching [facility] (9 sources) Penicillins; Translations: [PENICILLINS] Propensity to adverse reactions 11-22-2007 [facility] (4 sources) Sertraline; Translations: [SERTRALINE] Drug Allergy 04-13-2023 Intolerance [facility] Work Phone: Medications Current Medications Medication Drug Class(es) Dates Sig (Normalized) Sig (Original) cephalexin 500 mg oral capsule (4 sources) Cephalosporin Antibacterial Start: 01-04-2023 End: 01-11-2023 take 1 capsule by mouth three times daily cephALEXin (KEFLEX) 500 mg capsule Take 1 capsule by mouth three times daily for 7 days. 21 capsule 0 01/04/2023 01/11/2023 Active Completed/Discontinued Medications Medication Drug Class(es) Dates Sig (Normalized) Sig (Original) benzonatate 100 mg oral capsule (2 sources) Non-narcotic Antitussive Start: 08-08-2022 End: 01-04-2023 take 2 capsules by mouth three times daily as needed benzonatate (TESSALON PERLE) 100 mg capsule Indications: URI, acute Take 2 capsules by mouth three times daily as needed. 30 capsule 0 08/08/2022 01/04/2023 Discontinued (Course of therapy completed) Problems Active Problems Problem Classification Problem Date Documented Da te Episodic/Chronic Anxiety disorders (5 sources) Anxiety; Translations: [Anxiety disorder, unspecified] Onset: 01-10-2023 Chronic Headache; including migraine (5 sources) Migraine without aura, not refractory ; Translations: [Chronic migraine without aura, not intractable, without status migrainosus] Onset: 01-10-2023 Chronic Headache; including migraine (4 sources) Headache; Translations: [Headache] 11-21-2014 Episodic Mood disorders (5 sources) Depressive disorder; Translations: [Depression, unspecified depression type] Onset: 01-10-2023 Chronic Other circulatory disease (1 source) Elevated blood-pressure reading without diagnosis of hypertension; Translations: [Elevated blood-pressure reading, without diagnosis of hypertension] Episodic Other circulatory disease (4 sources) Elevated blood pressure; Translations: [Elevated blood-pressure reading, without diagnosis of hypertension] Onset: 04-13-2023 Episodic Other circulatory disease (1 source) Elevated blood-pressure reading, without diagnosis of hypertension; Translations: [Elevated blood pressure reading] Onset: 04-13-2023 Episodic Other nervous system disorders (1 source) Other chronic pain; Translations: [Chronic bilateral low back pain without sciatica] Onset: 01-10-2023 Chronic Other nutritional; endocrine; and metabolic disorders (5 sources) Body mass index 40+ - severely obese; Translations: [Morbid (severe) obesity due to excess calories] Onset: 01-10-2023 Chronic Other upper respiratory infections (1 source) Acute upper respiratory infection; Translations: [Acute upper respiratory infection, unspecified] Episodic Spondylosis; intervertebral disc disorders; other back problems (12 sources) Backache; Translations: [Dorsalgia, unspecified] 11-21-2014 Episodic Unclassified (1 source) Chronic bilateral low back pain without sciatica; Translations: [Chronic bilateral low back pain without sciatica] Onset: 01-10-2023 Past or Other Problems Problem Classification Problem Date Documented Da te Episodic/Chronic Abdominal pain (10 sources) Right upper quadrant pain; Translations: [Right upper quadrant pain] Onset: 10-07-2013 11-21-2014 Episodic Skin and subcutaneous tissue infections (11 sources) Recurrent skin infection; Translations: [Local infection of the skin and subcutaneous tissue, unspecified] Onset: 01-04-2023 Episodic Results Test Name Value Interpretation Reference Range Facil ity Vital Signs Date Time Vital Sign Value Performing Clinician Faci lity 04-13-2023 10:39-0400 Diastolic blood pressure 88 mm[Hg] Reji Bailey MD Work Phone: [facility] 04-13-2023 10:39-0400 Heart rate 68 /min Reji Bailey MD Work Phone: [facility] 04-13-2023 10:39-0400 Systolic blood pressure 132 mm[Hg] Reji Bailey MD Work Phone: [facility] 04-13-2023 10:30-0400 Body weight 125.56 kg Reji Bailey MD Work Phone: [facility] 04-13-2023 10:30-0400 Respiratory rate 18 /min Reji Bailey MD Work Phone: [facility] 01-10-2023 10:59-0400 Body height 167.6 cm [place] Older SUPERVIS[employer].PHYSICIAN NON INVASIVE CARDIOLOGIST Work Phone: [facility] 01-10-2023 10:59-0400 Body weight 128.82 kg [place] Older SUPERVIS[employer].PHYSICIAN NON INVASIVE CARDIOLOGIST Work Phone: [facility] 01-10-2023 10:59-0400 Diastolic blood pressure 88 mm[Hg] [place] Older SUPERVIS[employer].PHYSICIAN NON INVASIVE CARDIOLOGIST Work Phone: [facility] 01-10-2023 10:59-0400 Heart rate 64 /min [place] Older SUPERVIS[employer].PHYSICIAN NON INVASIVE CARDIOLOGIST Work Phone: [facility] 01-10-2023 10:59-0400 Respiratory rate 16 /min [place] Older SUPERVISOR [employer].PHYSICIAN NON INVASIVE CARDIOLOGIST Work Phone: [facility] 01-10-2023 10:59-0400 Systolic blood pressure 132 mm[Hg] [place] Older SUPERVIS[employer].PHYSICIAN NON INVASIVE CARDIOLOGIST Work Phone: [facility] 01-06-2023 14:32-0400 Body height 167.6 cm Aamir Jose MD Work Phone: [facility] 01-06-2023 14:32-0400 Body temperature 98.1 [degF] Aamir Jose MD Work Phone: [facility] 01-06-2023 14:32-0400 Body weight 129.18 kg Aamir Jose MD Work Phone: [facility] 01-06-2023 14:32-0400 Diastolic blood pressure 72 mm[Hg] Aamir Jose MD Work Phone: [facility] 01-06-2023 14:32-0400 Heart rate 88 /min Aamir Jose MD Work Phone: [facility] 01-06-2023 14:32-0400 SaO2% (BldA) [Mass fraction] 100 % Aamir Jose MD Work Phone: [facility] 01-06-2023 14:32-0400 Systolic blood pressure 128 mm[Hg] Aamir Jose MD Work Phone: [facility] 01-06-2023 10:28-0400 Body weight 127.46 kg [place] Older SUPERVIS[employer].PHYSICIAN NON INVASIVE CARDIOLOGIST Work Phone: [facility] 01-06-2023 10:28-0400 Diastolic blood pressure 86 mm[Hg] [place] Older SUPERVIS[employer].PHYSICIAN NON INVASIVE CARDIOLOGIST Work Phone: [facility] 01-06-2023 10:28-0400 Heart rate 76 /min [place] Older SUPERVIS[employer].PHYSICIAN NON INVASIVE CARDIOLOGIST Work Phone: [facility] 01-06-2023 10:28-0400 Respiratory rate 14 /min [place] Older SUPERVISOR [employer].PHYSICIAN NON INVASIVE CARDIOLOGIST Work Phone: [facility] 01-06-2023 10:28-0400 Systolic blood pressure 138 mm[Hg] [place] Older SUPERVIS[employer].PHYSICIAN NON INVASIVE CARDIOLOGIST Work Phone: [facility] 01-04-2023 11:51-0400 Body weight 127.46 kg [place] Older SUPERVISOR [employer].PHYSICIAN NON INVASIVE CARDIOLOGIST Work Phone: [facility] 01-04-2023 11:51-0400 Diastolic blood pressure 72 mm[Hg] [place] Older SUPERVISOR [employer].PHYSICIAN NON INVASIVE CARDIOLOGIST Work Phone: [facility] 01-04-2023 11:51-0400 Heart rate 95 /min [place] Older SUPERVISOR [employer].PHYSICIAN NON INVASIVE CARDIOLOGIST Work Phone: [facility] 01-04-2023 11:51-0400 Respiratory rate 18 /min [place] Older SUPERVISOR [employer].PHYSICIAN NON INVASIVE CARDIOLOGIST Work Phone: [facility] 01-04-2023 11:51-0400 Systolic blood pressure 129 mm[Hg] [place] Older SUPERVISOR [employer].PHYSICIAN NON INVASIVE CARDIOLOGIST Work Phone: [facility] 08-08-2022 17:25-0400 Body temperature 99 [degF] Anastacio King SUPERVISOR [employer].PHYSICIAN NON INVASIVE CARDIOLOGIST Work Phone: [facility] 08-08-2022 17:25-0400 Body weight 122.92 kg Anastacio King SUPERVISOR [employer].PHYSICIAN NON INVASIVE CARDIOLOGIST Work Phone: [facility] 08-08-2022 17:25-0400 Diastolic blood pressure 82 mm[Hg] Anastacio Cash SUPERVISOR [employer].PHYSICIAN NON INVASIVE CARDIOLOGIST Work Phone: [facility] 08-08-2022 17:25-0400 Heart rate 76 /min Anastacio Cash SUPERVISOR [employer].PHYSICIAN NON INVASIVE CARDIOLOGIST Work Phone: [facility] 08-08-2022 17:25-0400 Respiratory rate 18 /min Anastacio Cash SUPERVISOR [employer].PHYSICIAN NON INVASIVE CARDIOLOGIST Work Phone: [facility] 08-08-2022 17:25-0400 SaO2% (BldA) [Mass fraction] 97 % Anastacio Castrejon SUPERVISOR [employer].PHYSICIAN NON INVASIVE CARDIOLOGIST Work Phone: [facility] 08-08-2022 17:25-0400 Systolic blood pressure 128 mm[Hg] Anastacio Castrejon SUPERVISOR [employer].PHYSICIAN NON INVASIVE CARDIOLOGIST Work Phone: [facility] Encounters Encounter Date Encounter Type Care Provider Facility Start: 05-15-2023 End: 05-16-2023 ambulatory TORIE CAMPO Facility:[facility] Start: 05-15-2023 End: 05-15-2023 ambulatory Torie O'Luis Enrique [facility] Physical Therapy Plan of Treatment Date Care Activity Detail Author Start: 05-04-2032 Urine microalbumin profile DTA P,TDAP,TD (7 - Td or Tdap) [facility] Start: 12-25-2027 HPV TESTING HPV TESTING [facility] Start: 12-25-2027 PAP TESTING PAP TESTING [facility] Start: 01-11-2024 COVID-19 VACCINE (#1) COVID-19 VACCI NE (#1) [facility] Immunizations Immunization Date Immunization Notes Care Provider Fa johnny 05-04-2022 tetanus toxoid, redu dianna diphtheria toxoid, and acellular pertussis vaccine, adsorbed [place] Older SUPERVIS[employer].PHYSICIAN NON INVASIVE CARDIOLOGIST Work Phone: [facility] 10-25-2013 influenza, seasonal, injectable, preservative free [place] Older SUPERVISOR [employer].PHYSICIAN NON INVASIVE CARDIOLOGIST Work Phone: [facility] 10-25-2013 pneumococcal polysaccharide vaccine, 23 valent [place] Older SUPERVISOR [employer].PHYSICIAN NON INVASIVE CARDIOLOGIST Work Phone: [facility] 10-25-2013 pneumococcal vaccine , unspecified formulation [place] Older SUPERVISOR [employer].PHYSICIAN NON INVASIVE CARDIOLOGIST Work Phone: [facility] 02-27-2003 TD(adult) unspecifie d formulation [place] Older SUPERVIS[employer].PHYSICIAN NON INVASIVE CARDIOLOGIST Work Phone: [facility] 08-19-1998 hepatitis B vaccine, pediatric or pediatric/adolescent dosage [place] Older SUPERVISOR [employer].PHYSICIAN NON INVASIVE CARDIOLOGIST Work Phone: [facility] 01-27-1998 hepatitis B vaccine, pediatric or pediatric/adolescent dosage [place] Older SUPERVISOR [employer].PHYSICIAN NON INVASIVE CARDIOLOGIST Work Phone: [facility] 12-23-1997 hepatitis B vaccine, pediatric or pediatric/adolescent dosage [place] Older SUPERVISOR [employer].PHYSICIAN NON INVASIVE CARDIOLOGIST Work Phone: [facility] 12-23-1997 measles, mumps and rubella virus vaccine [place] Older SUPERVISOR [employer].PHYSICIAN NON INVASIVE CARDIOLOGIST Work Phone: [facility] 05-30-1991 diphtheria, tetanus toxoids and pertussis vaccine [place] Older SUPERVISOR [employer].PHYSICIAN NON INVASIVE CARDIOLOGIST Work Phone: [facility] 05-30-1991 trivalent poliovirus vaccine, live, oral [place] Older SUPERVISOR [employer].PHYSICIAN NON INVASIVE CARDIOLOGIST Work Phone: [facility] 07-06-1989 haemophilus influenz ae type b vaccine, conjugate unspecified formulation [place] Older SUPERVISOR [employer].PHYSICIAN NON INVASIVE CARDIOLOGIST Work Phone: [facility] 07-22-1987 diphtheria, tetanus toxoids and pertussis vaccine [place] Older SUPERVISOR [employer].PHYSICIAN NON INVASIVE CARDIOLOGIST Work Phone: [facility] 07-22-1987 trivalent poliovirus vaccine, live, oral [place] Older SUPERVISOR [employer].PHYSICIAN NON INVASIVE CARDIOLOGIST Work Phone: [facility] 02-18-1987 measles, mumps and rubella virus vaccine [place] Older SUPERVISOR [employer].PHYSICIAN NON INVASIVE CARDIOLOGIST Work Phone: [facility] 07-16-1986 diphtheria, tetanus toxoids and pertussis vaccine [place] Older SUPERVISOR [employer].PHYSICIAN NON INVASIVE CARDIOLOGIST Work Phone: [facility] 03-19-1986 diphtheria, tetanus toxoids and pertussis vaccine [place] Older SUPERVISOR [employer].PHYSICIAN NON INVASIVE CARDIOLOGIST Work Phone: [facility] 03-19-1986 trivalent poliovirus vaccine, live, oral [place] Older SUPERVISOR [employer].PHYSICIAN NON INVASIVE CARDIOLOGIST Work Phone: [facility] 01-15-1986 diphtheria, tetanus toxoids and pertussis vaccine [place] Older SUPERVISOR [employer].PHYSICIAN NON INVASIVE CARDIOLOGIST Work Phone: [facility] 01-15-1986 trivalent poliovirus vaccine, live, oral [place] Older SUPERVIS[employer].PHYSICIAN NON INVASIVE CARDIOLOGIST Work Phone: [facility] Payers Date Payer Category Payer Medicaid [id number] 2016 Medicaid [id number] 2016 Medicaid [id number] Social History Date Type Detail Facility Start: 08-08-2022 Tobacco smoking status NHIS Ex-smoker [facility] Work Phone: End: 10-16-2014 History of tobacco use Current smoker [facility] Work Phone: End: 10-16-2014 History of tobacco use Cigarette Smoker [facility] Work Phone: Start: 08-08-2022 End: 04-13-2023 Cigarettes smoked current (pack per day) - Reported 2 [facility] Start: 08-08-2022 Tobacco use and exposure Smokeless tobacco non-user [facility] Work Phone: History of tobacco use Snuff User [facility] Work Phone: History of tobacco use Chews Tobacco [facility] Work Phone: Start: 08-08-2022 End: 04-13-2023 Alcohol intake Current drinker of alcohol (finding) [facility] Start: 11-21-2014 Alcohol Comment 2 beers once a month [facility] Start: 1985 Sex Assigned At Not on file [facility] Start: 01-09-2023 End: 04-13-2023 History SDOH Alcohol Frequency 3 [facility] Start: 01-09-2023 End: 04-13-2023 History SDOH Alcohol Std Drinks 1 [facility] Start: 01-09-2023 End: 04-13-2023 History SDOH Alcohol Binge 2 [facility] Start: 01-09-2023 History SDOH Social Connections Living 8 [facility] Start: 01-09-2023 History SDOH Financial 5 [facility] Start: 04-13-2023 Alcohol Comment 1-2 weekends, occasionally more. [facility] Start: 01-08-2023 End: 04-13-2023 Social connection and isolation [facility] Do you belong to any clubs or organizations such as gnosticism groups, unions, fraternal or athletic groups, or school groups? No [facility] Attends Club or Organization Meetings Not on file [facility] Are you now , , , , never or living with a partner? Living with partner [facility] How often to you hav e a drink containing alcohol? 2-4 times a month [facility] Work Phone: How many standard dr inks containing alcohol do you have on a typical day? 1 or 2 [facility] Work Phone: How often do you hav e 6 or more drinks on 1 occasion? Less than monthly [facility] Work Phone: (I/We) worried wheth er (my/our) food would run out before (I/we) got money to buy more. Never true [facility] Clinical Notes 10-07-2013 to 05-15-2023 Torie Campo, PT - 05/15/2023 1:11 PM Torie Chou PT - 04/27/2023 10:05 AM EDTPatient InstructionsVicgraham Bailey MD - 04/13/2023 10:59 AM EDTPatient InstructionsPatient Instructions Note Date & Type Note Facility 05-15-2023 Note HNO ID: [id number] Author: Torie Campo PT Service: ? Author Type: Physical Therapist Type: Progress Notes Filed: 06/26/2023 10:44 AM Note Text: 06/26/2023 [facility] PHYSICAL THERAPY DISCONTINUANCE OF CARE Plan of Care Period: Start of Care Date: 04/27/23 Last Visit Date: 05/15/2023 Therapy Program: The following is a summary of the interventions provided for this episode of care; Therapeutic exercise, Manual therapy, Therapeutic activities, and Self-halfway management Assessment: Based on most recent visit, patient was progressing slower than expected toward functional goals based on pain levels, documented subjective information on progress, and appointment compliance. Unable to formally assess goal achievement, as patient has not returned to therapy or scheduled additional follow-up appointments. Reason for Discontinuation of Care: Patient has not returned to therapy or scheduled additional follow-up appointments. Torie Campo PT Episode Visit Count: 3 Therapist That Will Accept/Oversee The Plan Of Care: Torie Campo Start of Care Date: 04/27/23 Onset Date: 10/28/22 Plan of Care Certification Date: 04/27/23 Next Certification Due Date: 06/01/23 REHABIL[facility]ATION AND SPORTS THERAPY PHYSICAL THERAPY TREATMENT NOTE ASSESSMENT: Magaly Lindquist tolerated the session with increased symptoms. She demonstrated continued centralization of symptoms to the midline of the low back from the B hips and LLE with extension directional preference as demonstrated during initial evaluation. The patient will continue to benefit from ongoing skilled physical therapy to progress toward set goals. Planned Treatment Interventions: Therapeutic exercise (46893), Neuromuscular re-education (52922), Manual therapy (74018), Therapeutic activities (42375), Self-halfway management (17110), Gait Training (98289) PLAN FOR NEXT VISIT: continue extension directional preference based exercises based on continued centralization from the BLE to the mideline of the low back. SUBJECTIVE: Patient Reason for Visit: Pt. is not sure what position she feels best in. At home when laying prone, symptoms feel better for a second but returns as soon as she stands and moves around. She wore flip flops today to avoid bending. Leaning forward and rocking the hips side to side reduces low back pain for a few minutes. Pt. does the HEP 4-5 times a day. She has progressed from prone lay to VIKASH. Patient Goals: centralize LLE numbness symptoms, decrease low back pain with functional movement Functional Limitations: sitting, bed mobility, walking, rising from a chair, sleeping, bending (laying) Pain: Pain Pain Level: 6 Pain Location: Low Back/Lumbar Spine- Midline, Leg - Left (to the toes of LLE) Frequency: Continuous Pain Level 2: 3 Post Treatment Pain Post Treatment Pain Level: 6 Post Treatment Pain Location: Low Back/Lumbar Spine- Midline Post Treatment Pain Location 2: Abdomen OBJECTIVE MEASURES WITH LEVEL OF FUNCTION: TREATMENT: Therapeutic Exercise: 1: propped on elbows lay 5 min + 3x3 min between sets of press ups (symptoms centralized from the right hip and LLE to the midline of the lower back. 6/10 pain) 2: *prone press ups 4x5, 3x daily (symptoms centralized to the midline of the low back) 3: quadruped cat/cow 5x -- dc due to limited tolerance in the hips (symptoms with cat, decrease symptoms with cow (lumbar extension)) Skilled Intervention: Patient was educated in proper exercise technique and purpose for exercises. Skilled judgment was provided in selection of appropriate interventions. Correct performance of therapeutic exercises was facilitated with verbal, visual, and tactile cuing. Educated patient on rationale for performing exercises in regards to decreasing fatigue , increase ease of ADL, and ROM and function . Patient education as noted. Therapeutic Activity: 1: *log roll supine <> sitting EOB 2x Skilled Intervention: Proper patient guarding to prevent falls/increase patient safety with supervision to assist patient while performing supine <> sitting EOB with log roll technqiue. Minimum verbal cues for maintaining neutral spine alignment. Activity progression based on professional judgment. Reviewed and educated patient on additions/changes for home program as noted above with an (*). Provided written instruction for home program to facilitate proper performance and compliance. Correct performance of home program was facilitated with verbal, visual, and tactile cueing. Self-Fci Management: 1: *discussed dermatomes using images, and reasoning for possible referred symptoms to the LE's from the lumbar spine, pt. describes symptom location very consistent with lower lumbar dermatome patterns 2: *discussed centralization symptom location pattern to expect if extension directional preference ex (more content not included)... [facility] 05-15-2023 History of Present illness Narrative Episode Visit Count: 3 Therapist That Will Accept/Oversee The Plan Of Care: Torie Campo Start of Care Date: 04/27/23 Onset Date: 10/28/22 Plan of Care Certification Date: 04/27/23 Next Certification Due Date: 06/01/23 REHABILITATION AND SPORTS THERAPY PHYSICAL THERAPY TREATMENT NOTE ASSESSMENT: Magaly Lindquist tolerated the session with increased symptoms. She demonstrated continued centralization of symptoms to the midline of the low back from the B hips and LLE with extension directional preference as demonstrated during initial evaluation. The patient will continue to benefit from ongoing skilled physical therapy to progress toward set goals. Planned Treatment Interventions: Therapeutic exercise (38901), Neuromuscular re-education (28634), Manual therapy (29166), Therapeutic activities (90150), Self-halfway management (70266), Gait Training (76032) PLAN FOR NEXT VISIT: continue extension directional preference based exercises based on continued centralization from the BLE to the mideline of the low back. SUBJECTIVE: Patient Reason for Visit: Pt. is not sure what position she feels best in. At home when laying prone, symptoms feel better for a second but returns as soon as she stands and moves around. She wore flip flops today to avoid bending. Leaning forward and rocking the hips side to side reduces low back pain for a few minutes. Pt. does the HEP 4-5 times a day. She has progressed from prone lay to VIKASH. Patient Goals: centralize LLE numbness symptoms, decrease low back pain with functional movement Functional Limitations: sitting, bed mobility, walking, rising from a chair, sleeping, bending (laying) Pain: Pain Pain Level: 6 Pain Location: Low Back/Lumbar Spine- Midline, Leg - Left (to the toes of LLE) Frequency: Continuous Pain Level 2: 3 Post Treatment Pain Post Treatment Pain Level: 6 Post Treatment Pain Location: Low Back/Lumbar Spine- Midline Post Treatment Pain Location 2: Abdomen OBJECTIVE MEASURES WITH LEVEL OF FUNCTION: TREATMENT: Therapeutic Exercise: 1: propped on elbows lay 5 min + 3x3 min between sets of press ups (symptoms centralized from the right hip and LLE to the midline of the lower back. 6/10 pain) 2: *prone press ups 4x5, 3x daily (symptoms centralized to the midline of the low back) 3: quadruped cat/cow 5x -- dc due to limited tolerance in the hips (symptoms with cat, decrease symptoms with cow (lumbar extension)) Skilled Intervention: Patient was educated in proper exercise technique and purpose for exercises. Skilled judgment was provided in selection of appropriate interventions. Correct performance of therapeutic exercises was facilitated with verbal, visual, and tactile cuing. Educated patient on rationale for performing exercises in regards to decreasing fatigue , increase ease of ADL, and ROM and function . Patient education as noted. Therapeutic Activity: 1: *log roll supine <> sitting EOB 2x Skilled Intervention: Proper patient guarding to prevent falls/increase patient safety with supervision to assist patient while performing supine <> sitting EOB with log roll technqiue. Minimum verbal cues for maintaining neutral spine alignment. Activity progression based on professional judgment. Reviewed and educated patient on additions/changes for home program as noted above with an (*). Provided written instruction for home program to facilitate proper performance and compliance. Correct performance of home program was facilitated with verbal, visual, and tactile cueing. Self-Fci Management: 1: *discussed dermatomes using images, and reasoning for possible referred symptoms to the LE's from the lumbar spine, pt.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 AND ADENOIDECTOMY HX ALLERGIES Morphine and Penicillins MEDICATIONS PARoxetine (PAXIL) 20 mg tablet Take 20 mg by mouth. sulfamethoxazole-trimethoprim (BACTRIM DS) 800-160 mg per tablet Take by mouth. ibuprofen (MOTRIN) 600 mg tablet cyclobenzaprine (FLEXERIL) 5 mg tablet Take by mouth. mupirocin (BACTROBAN) 2 % ointment Apply inside nares twice a day for 10 days Chlorhexidine Gluconate 2 % liqd Wash entire body once daily for 10 days, follow directions on bottle cephALEXin (KEFLEX) 500 mg capsule Take 1 capsule by mouth three times daily for 7 days. medroxyPROGESTERone (DEPO-PROVERA) 400 mg/mL susp Inject 400 mg intramuscularly every 12 weeks. PNV no.95/ferrous fum/folic ac ( ORAL) Take by mouth. norgestimate 0.25 mg-ethinyl estradiol 35 mcg (SPRINTEC, ORTHO-CYCLEN) 0.25-35 mg-mcg per tablet Take 1 tablet by mouth once daily. FAMILY HISTORY Problem Relation Age of Onset Hypertension Father other (Depression [Other]) Father Cancer Mother eye Breast Cancer Unknown Prostate Cancer Unknown Diabetes Unknown Coronary Artery Disease Unknown Social History Tobacco Use Smoking status: Former Packs/day: 2.00 Years: 18.00 Pack years: 36.00 Types: Cigarettes Quit date: 10/16/2014 Years since quittin.2 Smokeless tobacco: Never Substance Use Topics Alcohol use: Yes Comment: 2 beers once a month Drug use: No PHYSICAL EXAM BP 138/86 Pulse 76 Resp 14 Wt 127.5 kg (281 lb) LMP 01/03/2017 BMI 46.76 kg/m? General Appearance: well appearing, in no acute distress, alert ASSESSMENT/PLAN: 1. Cutaneous abscess of chest wall - ICD9: 682.2, ICD10: L02.213 Improving however more fluctuance noted, only small incision that is draining. Recommend referral to general surgery for possible IANDD, patient agreeable. Scheduled with Dr. Jose today at 2:30 pm. Continue with antibiotics unless otherwise directed by general surgery Prescription instructions reviewed with patient as applicable. Potential red flag symptoms discussed with the patient. Reviewed appropriate action plan to take if red flag symptoms occur. Patient agreeable to treatment plan. Enid Grove APRN.CNP [facility] 01-06-2023 Instructions Enid Grove APRN.CNP - 01/06/2023 10:42 AM EDT Appointment with Dr. Jose, general surgery at 2:30 pm. His office is located at the specialty center building [address] documented in this encounter [facility] 01-06-2023 History of Present illness Narrative Images from the original note were not included. CC: Patient presents with: follow up - wound check HPI Magaly Lindquist is a 37 year old female who presents today for above. Patient reports there has been improvement in size of abscess and discomfort. Still draining quite a bit. Denies any new or worsening symptoms. Taking antibiotics as prescribed. REVIEW OF SYSTEMS See HPI PAST MEDICAL HISTORY Diagnosis Date Back pain Headache RUQ abdominal pain 10/07/13 PAST SURGICAL HISTORY Procedure Laterality Date ESOPHAGOGASTRODUODENOSCOPY TRANSORAL DIAGNOSTIC 12/24/14 EGD LAPAROSCOPY SURG CHOLECYSTECTOMY 10/07/13 Dr Aamir Jose TONSILLECTOMY AND ADENOIDECTOMY HX ALLERGIES Morphine and Penicillins MEDICATIONS PARoxetine (PAXIL) 20 mg tablet Take 20 mg by mouth. sulfamethoxazole-trimethoprim (BACTRIM DS) 800-160 mg per tablet Take by mouth. ibuprofen (MOTRIN) 600 mg tablet cyclobenzaprine (FLEXERIL) 5 mg tablet Take by mouth. mupirocin (BACTROBAN) 2 % ointment Apply inside nares twice a day for 10 days Chlorhexidine Gluconate 2 % liqd Wash entire body once daily for 10 days, follow directions on bottle cephALEXin (KEFLEX) 500 mg capsule Take 1 capsule by mouth three times daily for 7 days. medroxyPROGESTERone (DEPO-PROVERA) 400 mg/mL susp Inject 400 mg intramuscularly every 12 weeks. PNV no.95/ferrous fum/folic ac ( ORAL) Take by mouth. norgestimate 0.25 mg-ethinyl estradiol 35 mcg (SPRINTEC, ORTHO-CYCLEN) 0.25-35 mg-mcg per tablet Take 1 tablet by mouth once daily. FAMILY HISTORY Problem Relation Age of Onset Hypertension Father other (Depression [Other]) Father Cancer Mother eye Breast Cancer Unknown Prostate Cancer Unknown Diabetes Unknown Coronary Artery Disease Unknown Social History Tobacco Use Smoking status: Former Packs/day: 2.00 Years: 18.00 Pack years: 36.00 Types: Cigarettes Quit date: 10/16/2014 Years since quittin.2 Smokeless tobacco: Never Substance Use Topics Alcohol use: Yes Comment: 2 beers once a month Drug use: No PHYSICAL EXAM BP 138/86 Pulse 76 Resp 14 Wt 127.5 kg (281 lb) LMP 01/03/2017 BMI 46.76 kg/m General Appearance: well appearing, in no acute distress, alert ASSESSMENT/PLAN: 1. Cutaneous abscess of chest wall - ICD9: 682.2, ICD10: L02.213 Improving however more fluctuance noted, only small incision that is draining. Recommend referral to general surgery for possible I&D, patient agreeable. Scheduled with Dr. Jose today at 2:30 pm. Continue with antibiotics unless otherwise directed by general surgery Prescription instructions reviewed with patient as applicable. Potential red flag symptoms discussed with the patient. Reviewed appropriate action plan to take if red flag symptoms occur. Patient agreeable to treatment plan. Enid Grove APRN.CNP documented in this encounter [facility] 01-04-2023 Note HNO ID: [id number] Author: Enid Grove APRN.MILTON Service: ? Author Type: Nurse Practitioner Type: Progress Notes Filed: 01/04/2023 12:46 PM Note Text: CC: Patient presents with: ER follow up - abcess on chest HPI Magaly Lindquist is a 37 year old female who presents today for above. Patient was seen in [facility] ER on 01/02 for abscess on the right side of her chest. Incision and drainage was done and she was started on Bactrim DS. Today she reports pain, swelling and redness have improved. Still has purulent discharge. Denies new or worsening symptoms. She is mostly concerned today about recurrent skin infections. This is the fourth skin abscess in the past few months, previous infections all on her right arm. Start out like pimples and then develop into an abscess. She denies history of skin infections. No history of diabetes or immune compromising conditions that she is aware of. Labs done this month in ER were normal including glucose and WBC count. REVIEW OF SYSTEMS GENERAL: Negative for significant weight loss, fever, chills, night sweats, Positive for malaise Endocrine: no polyuria, no polyphagia, no polydipsia, no blurred vision, and no nocturia >1 PAST MEDICAL HISTORY Diagnosis Date Back pain Headache RUQ abdominal pain 10/07/13 PAST SURGICAL HISTORY Procedure Laterality Date ESOPHAGOGASTRODUODENOSCOPY TRANSORAL DIAGNOSTIC 12/24/14 EGD LAPAROSCOPY SURG CHOLECYSTECTOMY 10/07/13 Dr Aamir Jose TONSILLECTOMY AND ADENOIDECTOMY HX ALLERGIES Morphine and Penicillins MEDICATIONS sulfamethoxazole-trimethoprim (BACTRIM DS) 800-160 mg per tablet Take by mouth. ibuprofen (MOTRIN) 600 mg tablet cyclobenzaprine (FLEXERIL) 5 mg tablet Take by mouth. medroxyPROGESTERone (DEPO-PROVERA) 400 mg/mL susp Inject 400 mg intramuscularly every 12 weeks. benzonatate (TESSALON PERLE) 100 mg capsule Take 2 capsules by mouth three times daily as needed. (Patient not taking: Reported on 01/04/2023) PNV no.95/ferrous fum/folic ac ( ORAL) Take by mouth. (Patient not taking: No sig reported) triamcinolone acetonide (KENALOG) 0.1 % cream Apply 1 application to affected area twice daily. Apply to affected area. Location: hands (Patient not taking: Reported on 01/04/2023) norgestimate 0.25 mg-ethinyl estradiol 35 mcg (SPRINTEC, ORTHO-CYCLEN) 0.25-35 mg-mcg per tablet Take 1 tablet by mouth once daily. (Patient not taking: No sig reported) multivitamin tablet Take 1 tablet by mouth once daily. Woman's multivitamin (Patient not taking: Reported on 01/04/2023) FAMILY HISTORY Problem Relation Age of Onset Hypertension Father other (Depression [Other]) Father Cancer Mother eye Breast Cancer Unknown Prostate Cancer Unknown Diabetes Unknown Coronary Artery Disease Unknown Social History Tobacco Use Smoking status: Former Packs/day: 2.00 Years: 18.00 Pack years: 36.00 Types: Cigarettes Quit date: 10/16/2014 Years since quittin.2 Smokeless tobacco: Never Substance Use Topics Alcohol use: Yes Comment: 2 beers once a month Drug use: No PHYSICAL EXAM BP 129/72 Pulse 95 Resp 18 Wt 127.5 kg (281 lb) LMP 01/03/2017 BMI 46.76 kg/m? General Appearance: well appearing, in no acute distress, alert DATA REVIEWED: [facility] ER visit notes ASSESSMENT/PLAN: 1. Cutaneous abscess of chest wall - ICD9: 682.2, ICD10: L02.213 (primary diagnosis) Improving after two days on Bactrim. Not amenable to IANDD at this time. - Begin treatment with Cephalaxin (Keflex) - No lymphangetic streaking, this was defined for patient to watch for and to seek medical care immediately if appears - Area of cellulitis defined with pen, seek further attention if this area continues to enlarge - Follow up for recheck in two days 2. Recurrent infection of skin - ICD9: 686.9, ICD10: L08.9 Etiology unclear. Differentials include diabetes, hidradenitis and bacterial skin colonization - CBC and CMP in ER on 12/26 were normal. check HGB A1C - start treatment with Hibiclens and nasal Bactroban ointment Prescription instructions reviewed with patient as applicable. Potential red flag symptoms discussed with the patient. Reviewed appropriate action plan to take if red flag symptoms occur. Patient agreeable to treatment plan. Enid Grove APRN.PHYSICIAN NON INVASIVE CARDIOLOGIST [facility] 01-04-2023 Instructions Enid Grove APRN.CNP - 01/04/2023 12:26 PM EDT If the chlorhexidine wash is too expensive or not covered then treat with the following: Dilute bleach baths (one teaspoon bleach per gallon of water, or one-fourth cup bleach per one-fourth tub [approximately 13 gallons of water] for 15 minutes twice weekly) for approximately three months documented in this encounter [facility] 01-04-2023 History of Present illness Narrative Images from the original note were not included. CC: Patient presents with: ER follow up - abcess on chest HPI Magaly Lindquist is a 37 year old female who presents today for above. Patient was seen in [facility] ER on 01/02 for abscess on the right side of her chest. Incision and drainage was done and she was started on Bactrim DS. Today she reports pain, swelling and redness have improved. Still has purulent discharge. Denies new or worsening symptoms. She is mostly concerned today about recurrent skin infections. This is the fourth skin abscess in the past few months, previous infections all on her right arm. Start out like pimples and then develop into an abscess. She denies history of skin infections. No history of diabetes or immune compromising conditions that she is aware of. Labs done this month in ER were normal including glucose and WBC count. REVIEW OF SYSTEMS GENERAL: Negative for significant weight loss, fever, chills, night sweats, Positive for malaise Endocrine: no polyuria, no polyphagia, no polydipsia, no blurred vision, and no nocturia >1 PAST MEDICAL HISTORY Diagnosis Date Back pain Headache RUQ abdominal pain 10/07/13 PAST SURGICAL HISTORY Procedure Laterality Date ESOPHAGOGASTRODUODENOSCOPY TRANSORAL DIAGNOSTIC 12/24/14 EGD LAPAROSCOPY SURG CHOLECYSTECTOMY 10/07/13 Dr Aamir Jose TONSILLECTOMY AND ADENOIDECTOMY HX ALLERGIES Morphine and Penicillins MEDICATIONS sulfamethoxazole-trimethoprim (BACTRIM DS) 800-160 mg per tablet Take by mouth. ibuprofen (MOTRIN) 600 mg tablet cyclobenzaprine (FLEXERIL) 5 mg tablet Take by mouth. medroxyPROGESTERone (DEPO-PROVERA) 400 mg/mL susp Inject 400 mg intramuscularly every 12 weeks. benzonatate (TESSALON PERLE) 100 mg capsule Take 2 capsules by mouth three times daily as needed. (Patient not taking: Reported on 01/04/2023) PNV no.95/ferrous fum/folic ac ( ORAL) Take by mouth. (Patient not taking: No sig reported) triamcinolone acetonide (KENALOG) 0.1 % cream Apply 1 application to affected area twice daily. Apply to affected area. Location: hands (Patient not taking: Reported on 01/04/2023) norgestimate 0.25 mg-ethinyl estradiol 35 mcg (SPRINTEC, ORTHO-CYCLEN) 0.25-35 mg-mcg per tablet Take 1 tablet by mouth once daily. (Patient not taking: No sig reported) multivitamin tablet Take 1 tablet by mouth once daily. Woman's multivitamin (Patient not taking: Reported on 01/04/2023) FAMILY HISTORY Problem Relation Age of Onset Hypertension Father other (Depression [Other]) Father Cancer Mother eye Breast Cancer Unknown Prostate Cancer Unknown Diabetes Unknown Coronary Artery Disease Unknown Social History Tobacco Use Smoking status: Former Packs/day: 2.00 Years: 18.00 Pack years: 36.00 Types: Cigarettes Quit date: 10/16/2014 Years since quittin.2 Smokeless tobacco: Never Substance Use Topics Alcohol use: Yes Comment: 2 beers once a month Drug use: No PHYSICAL EXAM BP 129/72 Pulse 95 Resp 18 Wt 127.5 kg (281 lb) LMP 01/03/2017 BMI 46.76 kg/m General Appearance: well appearing, in no acute distress, alert DATA REVIEWED: [facility] ER visit notes ASSESSMENT/PLAN: 1. Cutaneous abscess of chest wall - ICD9: 682.2, ICD10: L02.213 (primary diagnosis) Improving after two days on Bactrim. Not amenable to I&D at this time. - Begin treatment with Cephalaxin (Keflex) - No lymphangetic streaking, this was defined for patient to watch for and to seek medical care immediately if appears - Area of cellulitis defined with pen, seek further attention if this area continues to enlarge - Follow up for recheck in two days 2. Recurrent infection of skin - ICD9: 686.9, ICD10: L08.9 Etiology unclear. Differentials include diabetes, hidradenitis and bacterial skin colonization - CBC and CMP in ER on 12/26 were normal. check HGB A1C - start treatment with Hibiclens and nasal Bactroban ointment Prescription instructions reviewed with patient as applicable. Potential red flag symptoms discussed with the patient. Reviewed appropriate action plan to take if red flag symptoms occur. Patient agreeable to treatment plan. Enid Grove APRN.CNP documented in this encounter [facility] 08-08-2022 Influenza virus A and B RNA and SARS-CoV-2 (COVID-19) N gene panel ANNITA+probe (Resp) COVID 19 RESULT: SARS-CoV-2 (Agent of COVID-19) Not Detected by RT-PCR or equivalent method. javier [id number] (CARLOS)_EUA This test was developed and its performance characteristics determined by [facility]'s [facility] [place]. This test has been authorized by FDA under an Emergency Use Authorization (EUA). This test has been validated in accordance with the FDA's Guidance Document Policy for Diagnostics Testing in Laboratories Certified to Perform High Complexity Testing under CLIA prior to Emergency use Authorization for Coronavirus Disease 2019 during the Public Health Emergency issued on December 14, 2019. Test performed by [facility], [facility] [place], [address] [place] [address]. INFLUENZA A PCR: Negative for Influenza A by RT-PCR INFLUENZA B PCR: Negative for Influenza B by RT-PCR [facility] documented as of this encounter (statuses as of 01/10/2023) [facility] History of Past illness Narrative* Problem Noted Date Resolved Date RUQ abdominal pain 10/07/2013 01/10/2023 documented as of this encounter (statuses as of 04/13/2023) [facility] History of Past illness Narrative* Problem Noted Date Diagnosed Date Resolved Date RUQ abdominal pain 10/07/2013 documented as of this encounter (statuses as of 04/27/2023) [facility] History of Past illness Narrative* Problem Noted Date Diagnosed Date Resolved Date RUQ abdominal pain 10/07/2013 documented as of this encounter (statuses as of 05/15/2023) [facility] note* Diagnosis URI, acute- Primary Acute upper respiratory infections of unspecified site [facility] Diagnosis Cutaneous abscess of chest wall- Primary Cellulitis and abscess of trunk Recurrent infection of skin documented in this encounter [facility] note* Diagnosis Cutaneous abscess of chest wall- Primary Cellulitis and abscess of trunk documented in [facility] encounter [facility]* Diagnosis Cutaneous abscess of chest wall- Primary Cellulitis and abscess of trunk documented in this encounter [facility] note* Diagnosis Elevated blood pressure reading in office without diagnosis of hypertension- Primary Anxiety Anxiety state, unspecified Depression, unspecified depression type Chronic migraine without aura without status migrainosus, not intractable Chronic migraine without aura, without mention of intractable migraine without mention of status migrainosus Recurrent infection of skin Chronic bilateral low back pain without sciatica Obesity, Class III, BMI 40-49.9 (morbid obesity) (HCC) Morbid obesity Chronic pelvic pain in female Unspecified symptom associated with female genital organs documented in this encounter [facility] note* Diagnosis Chronic bilateral low back pain without sciatica- Primary Elevated blood pressure reading Elevated blood pressure reading without diagnosis of hypertension Chronic pelvic pain in female Unspecified symptom associated with female genital organs documented in this encounter [facility] note* Diagnosis Chronic bilateral low back pain without sciatica- Primary documented in this encounter [facility] note* Diagnosis Chronic bilateral low back pain without sciatica- Primary documented in this encounter [facility] Reason for Referral Specialty Diagnoses / Procedures Referred By Johanna luu Referred To Contact [facility] Diagnoses Chronic bilateral low back pain without sciatica Procedures CONSULT TO PHYSICAL THERAPY PHYSICAL THERAPY EVALUATION HIGH COMPLEX 45 MINS Reji Bailey MD [address] [place] [address] [facility] [address] [address] Referral ID Status Reason Start Date Expiration Date Visits Requested Visits Authorized [id number] Pending Review Auto-Generat ed Referral 04/13/2023 04/12/2024 1 1 Specialty Diagnoses / Procedures Referred By Contac t Referred To Contact XR IMAGING Diagnoses Chronic bilateral low back pain without sciatica Procedures XR LUMBAR GENERAL 3V AP/LAT/L5-S1 RADEX SPINE LUMBOSACRAL 2/3 VIEWS Reji Bailey MD [address] [place] [address] Xr Imaging Referral ID Status Reason Start Date Expiration Date V isits Requested Visits Authorized [id number] Closed Auto-Generate d Referral 04/13/2023 05/12/2024 1 1 Specialty Diagnoses / Procedures Referred By Contac t Referred To Contact [facility] Diagnoses Chronic bilateral low back pain without sciatica Procedures PT REHAB FOLLOW UP ORDER THERAPEUTIC EXERCISES RE, EA 15 MIN. Torie Campo, PT [facility] [address] [place] [address] Referral ID Status Reason Start Date Expiration Date Visits Requested Visits Authorized [id number] Authorized PCP Requested Referral Auto-Generate d Referral 04/27/2023 07/28/2023 12 12 Summary Purpose Family History No Family History Records Found Advance Directives No Advanced Directives Records Found Additional Source Comments Source Comments (unrecognize d section and content) In the event this informatio n is protected by the Federal Confidentiality of Alcohol and Drug Abuse Patient Records regulations: The Federal rules restrict any use of the information to criminally investigate or prosecute any alcohol or drug abuse patient.[facility] the event this information is protected by the Federal Confidentiality of Alcohol and Drug Abuse Patient Records regulations: The Federal rules restrict any use of the information to criminally investigate or prosecute any alcohol or drug abuse patient.[facility] the event this information is protected by the Federal Confidentiality of Alcohol and Drug Abuse Patient Records regulations: The Federal rules restrict any use of the information to criminally investigate or prosecute any alcohol or drug abuse patient.[facility] the event this information is protected by the Federal Confidentiality of Alcohol and Drug Abuse Patient Records regulations: The Federal rules restrict any use of the information to criminally investigate or prosecute any alcohol or drug abuse patient.[facility] the event this information is protected by the Federal Confidentiality of Alcohol and Drug Abuse Patient Records regulations: The Federal rules restrict any use of the information to criminally investigate or prosecute any alcohol or drug abuse patient.[facility] the event this information is protected by the Federal Confidentiality of Alcohol and Drug Abuse Patient Records regulations: The Federal rules restrict any use of the information to criminally investigate or prosecute any alcohol or drug abuse patient.[facility] the event this information is protected by the Federal Confidentiality of Alcohol and Drug Abuse Patient Records regulations: The Federal rules restrict any use of the information to criminally investigate or prosecute any alcohol or drug abuse patient.[facility] the event this information is protected by the Federal Confidentiality of Alcohol and Drug Abuse Patient Records regulations: The Federal rules restrict any use of the information to criminally investigate or prosecute any alcohol or drug abuse patient.[facility] Reason for Visit (unrecogniz ed section and content) Reason Comments ER follow up - abcess on chest Reason Comments follow up - wound check Reason Comments Consult Abscess on chest wal l Reason Comments Establish Care Reason Comments F/U 3 Month Reason Comments PT Eval Specialty Diagnoses / Procedures Referred By Contac t Referred To Contact [facility] Diagnoses Chronic bilateral low back pain without sciatica Procedures CONSULT TO PHYSICAL THERAPY PHYSICAL THERAPY EVALUATION HIGH COMPLEX 45 MINS Reji Bailey MD [address] [place] [address] [facility] [facility] [address] [place] [id number] Referral ID Status Reason Start Date Expiration Date V isits Requested Visits Authorized [id number] Closed Auto-Generate d Referral 10/16/2022 2023 1 1 Reason Comments Physical Therapy Specialty Diagnoses / Procedures Referred By Contac t Referred To Contact [facility] Diagnoses Chronic bilateral low back pain without sciatica Procedures PT REHAB FOLLOW UP ORDER THERAPEUTIC EXERCISES RE, EA 15 MIN. Torie Campo, PT [facility] [address] [place] [address] Referral ID Status Reason Start Date Expiration Date Visits Requested Visits Authorized [id number] Authorized PCP Requested Referral Auto-Generate d Referral 04/27/2023 07/28/2023 12 12 Care Teams (unrecognized sec tion and content) [employer] Relationship Specialty Start Date End Date Enid Grove APRN.CNP [address], [place] [id number] PCP - General Internal Medicine 01/06/23 [employer]ter Relationship Specialty Start Date End Date Reji Bailey MD [address], [place] [id number] PCP - General Internal Medicine 01/10/23 [employer]ter Relationship Specialty Start Date End Date Reji Bailey MD [address], [place] [id number] PCP - General Internal Medicine 01/10/23 [employer] Machine [employer]ter Relationship Specialty Start Date End Date Reji Bailey MD [address], [place] [id number] PCP - General Internal Medicine 01/10/23 [employer] 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 This clinical summary was aggregated from multiple sources. Caution should be exercised in using it in the provision of clinical care. This summary normalizes information from multiple sources, and as a consequence, information in this document may materially change the coding, format and clinical context of patient data. In addition, data may be omitted in some cases. CLINICAL DECISIONS SHOULD BE BASED ON THE PRIMARY CLINICAL RECORDS. [facility] provides no warranty or guarantee of the accuracy or completeness of information in this document.
== END 2023-12-25 17:35 | disposition home or self-care (01) ==
PROVIDERS: Emergency Provider Emergency Medicine; PCP Nurse Practitioner; Visit Provider Emergency Medicine
DX: M54.30 Sciatica, unspecified side (principal); Z87.891 Personal history of nicotine dependence; G89.29 Other chronic pain; F12.90 Cannabis use, unspecified, uncomplicated
CPT/HCPCS: 96372; 99282

== ENCOUNTER → 2025-04-09 | Outpatient (CLI) | payer MEDICAID, SELFPAY ==
--- OUTSIDE RECORDS SUMMARY | 2025-04-09 21:36 | XMS RPT_ITS | CCD ---
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, [place] Primary Care Provider Reji Bailey MD Primary Care Provider [phone] REJI BAILEY Primary Care Unavailable LEO, REJI Pablo Attending Unavailable OLDER, ENID Attending Unavailable AAMIR JOSE Attending Unavailable OLDER, ENID Primary Care Unavailable OLDER, ENID Primary Care Unavailable OLDER, EN[place] Attending Unavailable O'LUIS ENRIQUE, SHARLENE Attending Unavailable O'LUIS ENRIQUE, SHARLENE Referring Unavailable LEO, REJI Pablo Primary Care Unavailable BAILEY, REJI Pablo Primary Care Unavailable O'LUIS ENRIQUE, SHARLENE Referring Unavailable O'LUIS ENRIQUE, SHARLENE Attending Unavailable BAILEY, REJI Pablo Primary Care Unavailable BAILEY, REJI Pablo Referring Unavailable OLDER, ENID Referring Unavailable OLDER, ENID Attending Unavailable BAILEY, REJI Pablo Primary Care Unavailable BAILEY, REJI Pablo Referring Unavailable BAILEY, REJI Pablo Referring Unavailable BAILEY, REJI Pablo Primary Care Unavailable Reji Bailey MD Primary Care Provider [phone] Michelle REPORTS ANALYSIS MANAGER, [place] Primary Care Unavailable Lai Griffiths Attending Unavailable Michelle REPORTS ANALYSIS MANAGER, [place] Primary Care Unavailable Lai Griffiths Attending Unavailable Michelle REPORTS ANALYSIS MANAGER, [place] Primary Care Unavailable Lai Griffiths Attending Unavailable Lai Griffiths Attending Unavailable Michelle REPORTS ANALYSIS MANAGER, [place] Primary Care Unavailable Michelle REPORTS ANALYSIS MANAGER, [place] Primary Care Unavailable Lai Griffiths Attending Unavailable Michelle REPORTS ANALYSIS MANAGER, [place] Primary Care Unavailable Lai Griffiths Attending Unavailable Allergies Allergy Classification Reported Allergen(s) Allergy Type Date of Onset Reaction(s) Facility (14 sources) Morphine; Translations: [MORPHINE] Drug Allergy 11-21-2014 Itching [facility] (15 sources) Penicillins; Translations: [PENICILLINS] Allergy to substance 11-22-2007 Unknown [facility] (5 sources) Sertraline; Translations: [SERTRALINE] Drug Allergy 04-13-2023 Intolerance [facility] Work Phone: (1 source) Morphine Drug Allergy 04-07-2025 [facility] (1 source) Sertraline Drug Allergy 04-07-2025 [facility] Medications Current Medications Medication Drug Class(es) Dates Sig (Normalized) Sig (Original) acetaminophen 325 mg / HYDROcodone bitartrate 5 mg oral tablet (6 sources) Opioid Agonist Start: 07-08-2022 take 1 tablet by mouth every six hours Hydrocodone-Aceta minophen Active 1 TABLET PO EVERY 6 HOURS 10 3 July 08, 2022 Start: 08-31-2020 End: 09-02-2020 take 1 tablet by mouth every four hours as needed Hydrocodone-Acetaminophen Discontinued 1 TABLET PO EVERY 4 HOURS NEEDED 10 August 31, 2020 September 02, 2020 1:02am cephalexin 500 mg oral capsule (4 sources) Cephalosporin Antibacterial Start: 01-04-2023 End: 01-11-2023 take 1 capsule by mouth three times daily cephALEXin (KEFLEX) 500 mg capsule Take 1 capsule by mouth three times daily for 7 days. 21 capsule 0 01/04/2023 01/11/2023 Active Comment on above: Take 1 capsule by [facility] three times daily for 7 days. cyclobenzaprine hydrochloride 5 mg oral tablet (9 sources) Muscle Relaxant Start: 01-02-2023 cyclobenzaprine (FLEXERIL) 5 mg tablet Take by mouth. 01/02/2023 Active Comment on above: Take by mouth. meclizine hydrochloride 50 mg oral tablet (3 sources) Antiemetic Start: 05-04-2022 take 1 tablet by mouth twice daily Meclizine (Antivert) 50 mg tablet Active 50 MG PO TWICE A DAY May 03, 2022 11:00pm meloxicam 15 mg oral tablet (4 sources) Nonsteroidal Anti-inflammatory Drug Start: 04-13-2023 take 1 tablet by mouth once daily at mealtime meloxicam (MOBIC) 15 mg tablet Indications: Chronic bilateral low back pain without sciatica Take 1 tablet by mouth once daily. With food. 30 tablet 2 04/13/2023 Active Comment on above: Take 1 tablet by roque th once daily. With food. ondansetron 4 mg disintegrating oral tablet (5 sources) Serotonin-3 Receptor Antagonist Start: 05-04-2022 take 4 mg by mouth every eight hours Ondansetron Active 4 MG PO Q8H July 07, 2022 11:00pm PARoxetine hydrochloride 20 mg oral tablet (7 sources) Serotonin Reuptake Inhibitor Start: 01-05-2023 PARoxetine (PAXIL) 20 mg tablet Take 20 mg by mouth. 01/05/2023 Active Comment on above: Take 20 mg by mouth. predniSONE 20 mg oral tablet (1 source) Start: 08-08-2022 End: 08-13-2022 take 2 tablets by mouth once daily predniSONE (DELTASONE) 20 mg tablet Indications: URI, acute Take 2 tablets by mouth once daily for 5 days. 10 tablet 0 08/08/2022 08/13/2022 Active Comment on above: Take 2 tablets by mo uth once daily for 5 days. sulfamethoxazole 800 mg / trimethoprim 160 mg oral tablet (6 sources) Dihydrofolate Reductase Inhibitor Antibacterial, Sulfonamide Antimicrobial Start: 01-02-2023 take 1 tablet by mouth twice daily Sulfamethoxazole-Tr imethoprim (Bactrim Ds) 800-160 mg tablet Active 1 TABLET PO TWICE A DAY January 02, 2023 12:00am Start: 11-28-2022 End: 01-10-2023 sulfamethoxazole-trimethopri m (BACTRIM DS) 800-160 mg per tablet Take by mouth. 0 11/28/2022 01/10/2023 Discontinued (Course of therapy completed) Start: 11-28-2022 take 1 tablet by roque th twice daily Sulfamethoxazole-Trimethoprim Active 1 T ABLET PO TWICE A DAY November 28, 2022 12:00am Comment on above: Take by mouth. SUMAtriptan 50 mg oral tablet (5 sources) Serotonin-1b and Serotonin-1d Receptor Agonist Start: 01-10-2023 SUMAtriptan (IMITREX) 50 mg tablet Take one tablet by mouth at the onset of the headache. If no improvement in 2 hours take one more tablet. No more than 2 tablets in 24 hours 6 tablet 01/10/2023 Active Comment on above: Take one tablet by m outh at the onset of the headache. If no improvement in 2 hours take one more tablet. No more than 2 tablets in 24 hours Completed/Discontinued Medications Medication Drug Class(es) Dates Sig (Normalized) Sig (Original) acetaminophen 325 mg / oxyCODONE hydrochloride 5 mg oral tablet (4 sources) Opioid Agonist Start: 10-08-2013 End: 10-23-2013 take 1 tablet by mouth every six hours as needed Oxycodone-Acetamin ophen Discontinued 1 - 2 TABLET PO EVERY 6 HOURS NEEDED October 08, 2013 1:00am October 23, 2013 2:25pm benzonatate 100 mg oral capsule (2 sources) Non-narcotic Antitussive Start: 08-08-2022 End: 01-04-2023 take 2 capsules by mouth three times daily as needed benzonatate (TESSALON PERLE) 100 mg capsule Indications: URI, acute Take 2 capsules by mouth three times daily as needed. 30 capsule 0 08/08/2022 01/04/2023 Discontinued (Course of therapy completed) Comment on above: Take 2 capsules by m outh three times daily as needed. chlorhexidine gluconate 20 mg/ml medicated liquid soap (4 sources) Start: 01-04-2023 End: 01-10-2023 Chlorhexidine Gluconate 2 % liqd Wash entire body once daily for 10 days, follow directions on bottle 250 mL 0 01/04/2023 01/10/2023 Discontinued (Course of therapy completed) Comment on above: Wash entire body onc e daily for 10 days, follow directions on bottle DULoxetine 30 mg delayed release oral capsule (1 source) Serotonin and Norepinephrine Reuptake Inhibitor End: 04-13-2023 take 1 capsule by mouth once daily DULoxetine (CYMBALTA) 30 mg capsule Take 30 mg by mouth once daily. Weaning off Paxil, transitioning to Cymbalta 0 04/13/2023 Discontinued (Erroneous entry) Comment on above: Take 30 mg by mouth once daily. Weaning off Paxil, transitioning to Cymbalta Ethinyl Estradiol / norgestimate (5 sources) Progestin, Estrogen End: 01-10-2023 take 1 tablet by mouth once daily norgestimate 0.25 mg-ethinyl estradiol 35 mcg (SPRINTEC, ORTHO-CYCLEN) 0.25-35 mg-mcg per tablet Take 1 tablet by mouth once daily. 0 01/10/2023 Discontinued (Course of therapy completed) take 1 tablet by mouth once vee y norgestimate 0.25 mg-ethinyl estradiol 35 mcg (SPRINTEC, ORTHO-CYCLEN) 0.25-35 mg-mcg per tablet Take 1 tablet by mouth once daily. 0 Active Comment on above: Take 1 tablet by roque th once daily. ibuprofen 600 mg oral tablet (5 sources) Nonsteroidal Anti-inflammatory Drug Start : 12-24 End: 04-13 ibuprofen (MOTRIN) 600 mg tablet medroxyPROGESTERone acetate 400 mg/ml injectable suspension (5 sources) Progestin End: 01-10 medroxyPROGESTERone (DEPO-PROVERA) 400 mg/mL susp Inject 400 mg intramuscularly every 12 weeks. 0 01/10/2023 Discontinued (Course of therapy completed) Comment on above: Inject 400 mg intram uscularly every 12 weeks. multivitamin tablet (2 sources) Start : 11-21 End: 01-04 take 1 tablet by mouth once daily multivitamin tablet Take 1 tablet by mouth once daily. Woman's multivitamin 0 11/21/2014 01/04/2023 Discontinued (Course of therapy completed) Start: 11-21-2014 take 1 tablet by roque th once daily multivitamin tablet Take 1 tablet by mouth once daily. Woman's multivitamin 0 11/21/2014 Active Comment on above: Take 1 tablet by roque th once daily. Woman's multivitamin mupirocin 0.02 mg/mg topical ointment (4 sources) RNA Synthetase Inhibitor Antibacterial Start: 01-04-2023 End: 01-10-2023 mupirocin (BACTROBAN) 2 % ointment Apply inside nares twice a day for 10 days 30 g 0 01/04/2023 01/10/2023 Discontinued (Course of therapy completed) Comment on above: Apply inside nares t wice a day for 10 days PNV no.95/ferrous fum/folic ac ( ORAL) (5 sources) End: 01-10-2023 PNV no.95/ferrous fum/folic ac ( ORAL) Take by mouth. 0 01/10/2023 Discontinued (Course of therapy completed) PNV no.95/ferrou s fum/folic ac ( ORAL) Take by mouth. 0 Active Comment on above: Take by mouth. triamcinolone acetonide 1 mg/ml topical cream (2 sources) Corticosteroid Start: 10-24-2018 End: 01-04-2023 triamcinolone acetonide (KENALOG) 0.1 % cream Indications: Eczema, unspecified type , 16 weeks gestation of Apply 1 application to affected area twice daily. Apply to affected area. Location: hands 30 Tube 1 10/24/2018 01/04/2023 Discontinued (Course of therapy completed) Comment on above: Apply 1 application to affected area twice daily. Apply to affected area. Location: hands Problems Active Problems Problem Classification Problem Date Documented Date Episodic/Chronic Anxiety disorders (7 sources) Anxiety; Translations: [Anxiety disorder, unspecified] Onset: 01-10-2023 Chronic Headache; including migraine (6 sources) Migraine without aura, not refractory ; Translations: [Chronic migraine without aura, not intractable, without status migrainosus] Onset: 01-10-2023 Chronic Headache; including migraine (4 sources) Headache; Translations: [Headache] 11-21-2014 Episodic Mood disorders (7 sources) Depressive disorder; Translations: [Depression, unspecified depression type] Onset: 01-10-2023 Chronic Other circulatory disease (1 source) Elevated blood-pressure reading without diagnosis of hypertension; Translations: [Elevated blood-pressure reading, without diagnosis of hypertension] Episodic Other circulatory disease (1 source) Elevated blood-pressure reading, without diagnosis of hypertension; Translations: [Elevated blood pressure reading] Onset: 04-13-2023 Episodic Other connective tissue disease (4 sources) Muscle spasm of cervical muscle of neck; Translations: [Other muscle spasm] 05-12-2022 Episodic Other female genital disorders (4 sources) Dyspareunia due to non-psychogenic cause in the female; Translations: [Unspecified dyspareunia] 03-26-2019 Chronic Other injuries and conditions due to external causes (4 sources) Closed injury of head; Translations: [Unspecified injury of head, initial encounter] 05-12-2022 Episodic Other nervous system disorders (1 source) Other chronic pain; Translations: [Chronic bilateral low back pain without sciatica] Onset: 01-10-2023 Chronic Other nutritional; endocrine; and metabolic disorders (4 sources) Obese class I; Translations: [Obesity, unspecified] 03-26-2019 Chronic Other nutritional; endocrine; and metabolic disorders (6 sources) Body mass index 40+ - severely obese; Translations: [Morbid (severe) obesity due to excess calories] Onset: 01-10-2023 Chronic Other upper respiratory infections (1 source) Acute upper respiratory infection; Translations: [Acute upper respiratory infection, unspecified] Episodic Ovarian cyst (5 sources) Hemorrhagic cyst of ovary; Translations: [Unspecified ovarian cyst, unspecified side] 07-08-2022 Episodic Residual codes; unclassified (1 source) Hypersomnia, unspecified; Translations: [Hypersomnia, unspecified] Onset: 04-07-2025 Chronic Residual codes; unclassified (1 source) Past history of procedure; Translations: [Other specified postprocedural states] 01-02-2023 Episodic Spondylosis; intervertebral disc disorders; other back problems (14 sources) Backache; Translations: [Dorsalgia, unspecified] 11-21-2014 Episodic Unclassified (1 source) Chronic bilateral low back pain without sciatica; Translations: [Chronic bilateral low back pain without sciatica] Onset: 01-10-2023 Past or Other Problems Problem Classification Problem Date Documented Da te Episodic/Chronic Abdominal pain (20 sources) Pain in pelvis; Translations: [Pelvic and perineal pain] Onset: 10-07-2013 Resolved: 01-10-2023 11-21-2014 Episodic Other circulatory disease (5 sources) Elevated blood pressure; Translations: [Elevated blood-pressure reading, without diagnosis of hypertension] Onset: 04-13-2023 Episodic Skin and subcutaneous tissue infections (15 sources) Abscess of right forearm; Translations: [Cutaneous abscess of right upper limb] Onset: 01-04-2023 11-28-2022 Episodic Results Test Name Value Interpretation Reference Range Facility /[facility] 04-07-2025 MR/ [address] [place] [id number] OFFICE VISIT Date of Service: 04/07/25 MR#: [id number] Acct: [id number] Name: MAGALY CHAO Rep #: [id number] : 1985 Provider: Dr. Lai Dinh se, DO Age/Sex: 39/F Location[facility] Status: Signed Intake Vital Signs 01/13/25 07:52 04/07/25 13:57 04/07/25 14:00 Height 5 ft 6 in 5 ft 6 in 5 ft 6 in Weight: 223 lb 4 oz BMI 36.0 BP 118/83 H 128/89 H Blood Pressure Location Lt brachial Lt brachial Position Sitting Sitting Pulse 73 Pulse Source Monitor BP Intake Visit Reasons: 3 M FU Allergies Penicillins Allergy (Verified 04/07/25 13:59) Unknown sertraline (From Zoloft) Adverse Reaction (Severe, Verified 04/07/25 13:59) Other morphine Adverse Reaction (Verified 04/07/25 13:59) Vomiting Medications ???Medication ???Instructions ???Recorded ???Confirmed ???Type hydroxyzine HCl 25 mg tablet 25 mg PO TID PRN anxiety #90 tabs 10/30/23 04/07/25 Rx cyclobenzaprine 10 mg tablet 10 mg PO TID PRN Muscle Spasm #20 12/25/23 04/07/25 Rx TABLETS bupropion HCl 300 mg 24 hr tablet, 300 mg PO QAM #90 tabs 11/25/24 04/07/25 Rx extended release duloxetine 30 mg capsule,delayed 30 mg PO DAILY #90 caps 11/25/24 0 04/07/25 Rx release duloxetine 60 mg capsule,delayed 60 mg PO DAILY #90 caps 11/25/24 0 04/07/25 Rx release PFSH Medical History Daytime sleepiness PTSD (post-traumatic stress disorder) Anxiety disorder, unspecified Major depressive disorder Wears glasses Depression Anxiety Alcohol use Open wound History of steroid therapy Back pain Migraine headache Former smoker Surgical History Hx of surgical procedure Hx of tonsillectomy History of cholecystectomy Family History Other Alcoholism Anemia Anxiety Bowel disease Breast cancer Cancer Depression Diabetes Heart disease Hypertension Mental disorder Myocardial infarction Suicide attempt Social History Smoking Status: Former smoker alcohol intake: current details: on occasion substance use type: marijuana HPI History of Present Illness History provided by: patient HPI: Magaly Arms is a 39 year old female who presents today for follow up evaluation. Patient reports that she has been ok. Recently found out that her paternal grandmother has stage 4 cancer. This is particularly difficult because of her relationship with her father. This is bringing up a lot of stress related to previous loss she has suffered. Mood has been somewhat scattered. Does feel like she spaces out because of anxiety. Does feel like she has a short fuse with those around her. It can take hours to calm down when upset. Has been able to function largely well but has been distracting herself by gardening or doing anything to keep her mind off things. Has been going with her significant other to help work. Sleep has been fair. Getting about 5 hours of sleep in the morning, does feel tired in the morning. Did feel like medications are working largely well. Has not been taking hydroxyzine. STOP-Bang Questionnaire Is it possible that you have ... Obstructive Sleep Apnea (CANDE)? Snoring ? Do you???Snore Loudly???(loud enough to be heard through closed doors or your bed-partner elbows you for snoring at night)? Yes Tired ? Do you often feel???Tired, Fatigued, or Sleepy???during the daytime (such as falling asleep during driving or talking to someone)? Yes Observed ? Has anyone???Observed???yo u???Stop Breathing???or???Choki ng/Gasping???during your sleep ? Yes Pressure ? Do you have or are being treated for???High Blood Pressure? Yes Body Mass Index more than 35 kg/m2? BMI: 36 ??? Yes Age older than 50 ? No Neck size large ? (Measured around [place]) Is your shirt collar 16 inches / 40cm or larger? Unable to measure today Gender = Male ? No [place] Sleepiness Score Sitting and reading 1 Watching TV 3 Sitting inactive in a public place (eg, a theater or meeting) 1 As a passenger in a car for an hour without a break 3 Lying down to rest in the afternoon when circumstances permit 3 Sitting and talking with someone 0 Sitting quietly after a lunch without alcohol 1 In a car, while stopped for a few minutes in traffic 0 Score = 12 Review of Systems Constitutional Reports: fatigue; Denies: change in weight Eyes Denies: change in vision or blurry vision Ears, Nose, Mouth, Throat Denies: throat pain, neck pain or change in hearing Cardiovascular Denies: chest pain, palpitations or dyspnea Respiratory Denies: dyspnea, cough or wheezing Gastroint (more content not included)... Normal [facility] MR/BMS.BPon 01-13-2025 MR/BMS.BP [facility] [address], [address] [place] [address] OFFICE VISIT Date of Service: 01/13/25 MR#: [id number] Acct: [id number] Name: MAGALY CHAO Rep #: [id number] : 1985 Provider: Dr. Lai Dinh se, Age/Sex: 39/F Location: [facility] Status: Signed Intake Vital Signs 11/25/24 09:54 01/13/25 07:52 Height 5 ft 6 in 5 ft 6 in Weight: 239 lb BMI 38.5 BP 135/85 H 118/83 H Blood Pressure Location Lt brachial Lt brachial Position Sitting Sitting Respiration 16 Pulse 84 73 Pulse Source Monitor Monitor BP Intake Visit Reasons: 6 WK FU Materials Assistant Required: No Accompanied by: Self Is patient in pain?: Yes (low back) Pain scale (1-10): 6 Allergies Penicillins Allergy (Verified 01/13/25 07:51) Unknown sertraline (From Zoloft) Adverse Reaction (Severe, Verified 01/13/25 07:51) Other morphine Adverse Reaction (Verified 01/13/25 07:51) Vomiting Medications ???Medication ???Instructions ???Recorded ???Confirmed ???Type hydroxyzine HCl 25 mg tablet 25 mg PO TID PRN anxiety #90 tabs 10/30/23 01/13/25 Rx cyclobenzaprine 10 mg tablet 10 mg PO TID PRN Muscle Spasm #20 12/25/23 01/13/25 Rx TABLETS bupropion HCl 300 mg 24 hr tablet, 300 mg PO QAM #90 tabs 11/25/24 01/13/25 Rx extended release duloxetine 30 mg capsule,delayed 30 mg PO DAILY #90 caps 11/25/24 0 01/13/25 Rx release duloxetine 60 mg capsule,delayed 60 mg PO DAILY #90 caps 11/25/24 0 01/13/25 Rx release PFSH Medical History PTSD (post-traumatic stress disorder) Anxiety disorder, unspecified Major depressive disorder Wears glasses Depression Anxiety Alcohol use Open wound History of steroid therapy Back pain Migraine headache Former smoker Surgical History Hx of surgical procedure Hx of tonsillectomy History of cholecystectomy Family History Other Alcoholism Anemia Anxiety Bowel disease Breast cancer Cancer Depression Diabetes Heart disease Hypertension Mental disorder Myocardial infarction Suicide attempt Social History Smoking Status: Former smoker alcohol intake: current details: on occasion substance use type: marijuana HPI History of Present Illness History provided by: patient Chief complaint: depression/anxiety/sle ep HPI: Magaly Chao is a 39 year old female who presents today for follow up evaluation. Patient reports that she has been ok. Does feel like she is doing somewhat better than she had been. Has cut out a lot of people from her life as she found them toxic. Continues to not be informed of what is going on with her family, giving example of grandfather being in the hospital and no one telling her. Sleep continues to be not great. Feels like she is getting longer stretches of time of uninterrupted sleep. Does feel like she sleep better with use of marijuana. Feels more restored when she does do this. Feels like she still does twitch at night regardless but less. Has still been snoring frequently. Didn't feel any significant benefit with the use of bupropion, but also no significant worsening of symptoms either. Has continued to lose weigh which likely has been improving her sleep quality in some capacity. Significant other has been slowly back to work as he had been off during the winter. Review of Systems Constitutional Reports: fatigue; Denies: change in weight Eyes Denies: change in vision or blurry vision Ears, Nose, Mouth, Throat Denies: throat pain, neck pain or change in hearing Cardiovascular Denies: chest pain, palpitations or dyspnea Respiratory Denies: dyspnea, cough or wheezing Gastrointestinal Reports: abdominal pain, nausea, diarrhea, bloating, excessive flatus and change in bowel habits Genitourinary Reports: urinary frequency, urinary urgency and vaginal discharge Musculoskeletal Reports: back pain, extremity pain, joint pain, muscle cramps and other (Restless leg, leg pain at night); Denies: neck pain Integumentary/Breast Denies: rash or new lesions Neurological Reports: headache(s) Endocrine Reports: fatigue Hematologic/Lymphatic Reports: easy bruising Allergic/Immunologic Denies: wheezing Exam Mental Status Exam - Psych Appearance casually dressed Attitude cooperative Activity/Motor Behavior MSE activity/motor behavior finding no adventitious movements Speech regular rate, regular volume and regular prosody Mood OK Affect congruent Thought Process linear, logical and coherent Thought Content no delusions and no hallucinations Suicidal Ideation none Homicidal Ideation none Attention intact Concentration intact Sensoriu (more content not included)... Normal [facility] MR/BMS.BPon 11-25-2024 MR/BMS.BP [address], [address] [place] [address] OFFICE VISIT Date of Service: 11/25/24 MR#: [id number] Acct: [id number] Name: MAGALY CHAO Rep #: [id number] : 1985 Provider: Dr. Lai Dinh se, DO Age/Sex: 39/F Location: [facility] Status: Signed Intake Vital Signs 09/24/24 10:12 11/25/24 09:54 Height 5 ft 6 in 5 ft 6 in Weight: 239 lb BMI 38.5 BP 135/85 H Blood Pressure Location Lt brachial Position Sitting Respiration 16 Pulse 84 Pulse Source Monitor BP Intake Visit Reasons: 2 M FU Accompanied by: Self Allergies Penicillins Allergy (Verified 11/25/24 09:58) Unknown sertraline (From Zoloft) Adverse Reaction (Severe, Verified 11/25/24 09:58) Other morphine Adverse Reaction (Verified 11/25/24 09:58) Vomiting Medications ???Medication ???Instructions ???Recorded ???Confirmed ???Type cyclobenzaprine 5 mg tablet 5 mg PO TID PRN PRN Pain 01/02/23 11/25/24 History hydroxyzine HCl 25 mg tablet 25 mg PO TID PRN anxiety #90 tabs 10/30/23 11/25/24 Rx cyclobenzaprine 10 mg tablet 10 mg PO TID PRN Muscle Spasm #20 12/25/23 11/25/24 Rx TABLETS bupropion HCl 300 mg 24 hr tablet, 300 mg PO QAM #90 tabs 11/25/24 11/25/24 Rx extended release duloxetine 30 mg capsule,delayed 30 mg PO DAILY #90 caps 11/25/24 0 11/25/24 Rx release duloxetine 60 mg capsule,delayed 60 mg PO DAILY #90 caps 11/25/24 0 11/25/24 Rx release PFSH Medical History PTSD (post-traumatic stress disorder) Anxiety disorder, unspecified Major depressive disorder Wears glasses Depression Anxiety Alcohol use Open wound History of steroid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 [place] Bilirubin [Mass/Vol] 0.4 mg/dL Normal 0.2-1.3 [facility] Comment on above: Order Comment: Speci men Type: BLOOD SPECIMENOrdering Facility: [facility] Address: [address] Performed By: #### 2 432-8, 00910-7 ####[facility] [id number] [place] [address] [place] Calcium [Mass/Vol] 9.6 mg/dL Normal 8.5-10.2 [facility] Comment on above: Order Comment: Speci men Type: BLOOD SPECIMENOrdering Facility: [facility] Address: [address] Performed By: #### 2 432-8, 89111-9 ####[facility] [id number] [place] [address] [place] Chloride [Moles/Vol] 103 mmol/L Normal 97-105 [facility] Comment on above: Order Comment: Speci men Type: BLOOD SPECIMENOrdering Facility: [facility] Address: [address] Performed By: #### 2 432-8, 00634-2 ####[facility] [id number] [place] [address] [place] CO2 [Moles/Vol] 22 mmol/L Normal 22-30 [facility] Comment on above: Order Comment: Speci men Type: BLOOD SPECIMENOrdering Facility: [facility] Address: [address] Performed By: #### 2 4323-8, 57946-4 ####[facility] [id number] [address] [facility] Creatinine [Mass/Vol] 0.87 mg/dL Normal 0.58-0.96 [facility] Comment on above: Order Comment: Kai gar Type: BLOOD SPECIMENOrdering Facility: [facility] Address: [address] [address] Performed By: #### 2 4323-8, 78121-3 ####[facility] [id number] [address] [facility] ESTIMATED GLOMERULAR FILTRATION RATE 88 mL/min/1.73m??? Normal >=60 [facility] Comment on above: Order Comment: Kai gar Type: BLOOD SPECIMENOrdering Facility: [facility] Address: [address] [place] [address] Result Comment: Angie mated Glomerular Filtration Rate (eGFR) is calculated using the 2020 CKD-EPI creatinine equation. This equation utilizes serum creatinine, sex, and age as parameters. The creatinine assay has traceable calibration to isotope dilution-mass spectrometry. Refer to KDIGO guidelines for clinical interpretation. In patients with unstable renal function, e.g. those with acute kidney injury, the eGFR may not accurately reflect actual GFR. Performed By: #### 2 4323-8, 95977-2 ####[facility] [id number] [address] [place] Glucose [Mass/Vol] 87 mg/dL Normal 74-99 [facility] Comment on above: Order Comment: Kai gar Type: BLOOD SPECIMENOrdering Facility: [facility] Address: [address] [place] [address] Result Comment: The [place] Diabetes Association (ADA) provides guidance for cutoff values for fasting glucose and random glucose. The ADA defines fasting as no caloric intake for at least 8 hours. Fasting plasma glucose results between 100 to 125 mg/dL indicate increased risk for diabetes (prediabetes). Fasting plasma glucose results greater than or equal to 126 mg/dL meet the criteria for diagnosis of diabetes. In the absence of unequivocal hyperglycemia, results should be confirmed by repeat testing. In a patient with classic symptoms of hyperglycemia or hyperglycemic crisis, random plasma glucose results greater than or equal to 200 mg/dL meet the criteria for diagnosis of diabetes. Reference: Standards of Medical Care in Diabetes 2016, [place] Diabetes Association. Diabetes Care. 2016.39(Suppl 1). Performed By: #### 2 4323-8, 41252-0 ####[facility] [id number] [place] [address] [place] Potassium [Moles/Vol] 4.2 mmol/L Normal 3.7-5.1 [facility] Comment on above: Order Comment: Speci men Type: BLOOD SPECIMENOrdering Facility: [facility] Address: [address] [address] Performed By: #### 2 8, ####[facility] [id number] [place] [address] [place] Protein [Mass/Vol] 7.0 g/dL Normal 6.3-8.0 [facility] Comment on above: Order Comment: Speci men Type: BLOOD SPECIMENOrdering Facility: [facility] Address: [address] [address] Performed By: #### 2 4323-05, ####[facility] [id number] [place] [address] [place] Sodium [Moles/Vol] 139 mmol/L Normal 136-144 [facility] Comment on above: Order Comment: Speci men Type: BLOOD SPECIMENOrdering Facility: [facility] Address: [address] Performed By: #### 2 8, ####[facility] [id number] [place] [address] [place] Urea nitrogen [Mass/Vol] 15 mg/dL Normal 7-21 [facility] Comment on above: Order Comment: Speci men Type: BLOOD SPECIMENOrdering Facility: [facility] Address: [address] Performed By: #### 2 4323-8, 92368-8 ####[facility] [id number] [address] [facility] Lipid 1996 panelon 3 Cholesterol [Mass/Vol] 179 mg/dL Normal <200 [facility] Comment on above: Order Comment: Speci men Type: BLOOD SPECIMENOrdering Facility: [facility] Address: [address] Result Comment: <200 mg/dL, Desirable 200-239 mg/dL, Borderline high >239 mg/dL, High Performed By: #### 2 4323-8, 33079-0 ####[facility] [id number] [address] [place] Cholesterol in HDL [Mass/Vol] 46 mg/dL Normal >39 [facility] Comment on above: Order Comment: Speci men Type: BLOOD SPECIMENOrdering Facility: [facility] Address: [address] Result Comment: 40-5 9 mg/dL, Acceptable >59 mg/dL, High: Negative risk factor for coronary heart disease <40 mg/dL, Low: Positive risk factor for coronary heart disease Performed By: #### 2 4323-8, 23619-2 ####[facility] [id number] [address] [facility] Cholesterol in LDL [Mass/Vol] 112 mg/dL High <100 [facility] Comment on above: Order Comment: Speci men Type: BLOOD SPECIMENOrdering Facility: [facility] Address: [address] Result Comment: <100 mg/dL, Optimal 100-129 mg/dL, Near optimal/above optimal 130-159 mg/dL, Borderline high 160-189 mg/dL, High >189 mg/dL, Very high Secondary prevention optimal LDL Cholesterol levels are recommended to be < 70 mg/dL Performed By: #### 2 4323-8, 90027-9 ####[facility] [id number] [address] [place] Cholesterol in LDL/Cholesterol in HDL [Mass ratio] 2.43 {ratio} Normal <2.54 [facility] Comment on above: Order Comment: Speci men Type: BLOOD SPECIMENOrdering Facility: [facility] Address: [address] [place] [address] Result Comment: Refe rence: 1. National Cholesterol Education Program ATP III Guideline At-A-Glance Quick Desk Reference: National Heart, Lung, and Blood [place]. National Institutes of Health. 2001: NIH Publication No. 01-3305. 2. An International Atherosclerosis Society position paper: global recommendations for the management of dyslipidemia: executive summary, Atherosclerosis. 2014: 232(2):410-413. Performed By: #### 2 4323-8, 47098-2 ####[facility] [id number] [place] [address] [place] Cholesterol in VLDL [Mass/Vol] 21 mg/dL Normal <30 [facility] Comment on above: Order Comment: Speci men Type: BLOOD SPECIMENOrdering Facility: [facility] Address: [address] [place] [address] Performed By: #### 2 4323-8, 02596-4 ####[facility] [id number] [place] [address] [place] Cholesterol non HDL [Mass/Vol] 133 mg/dL High <130 [facility] Comment on above: Order Comment: Speci men Type: BLOOD SPECIMENOrdering Facility: [facility] Address: [address] [place] [address] Result Comment: <130 mg/dL, Optimal 130-159 mg/dL, Near optimal/above optimal 160-189 mg/dL, Borderline high 190-219 mg/dL, High >219 mg/dL, Very high Secondary prevention optimal non HDL Cholesterol levels are recommended to be <100 mg/dL Performed By: #### 2 4323-8, 59810-6 ####[facility] [id number] [address] [place] Cholesterol.total/Choles terol in HDL [Mass ratio] 3.89 {ratio} Normal <5.10 [facility] Comment on above: Order Comment: Speci men Type: BLOOD SPECIMENOrdering Facility: [facility] Address: [address] [place] [address] Performed By: #### 2 4323-8, 80505-9 ####[facility] [id number] [address] FASTING TIME 12 hrs Normal [facility] Comment on above: Order Comment: Speci men Type: BLOOD SPECIMENOrdering Facility: [facility] Address: [address] [place] [address] Performed By: #### 2 4323-8, 66090-9 ####[facility] [id number] [address] Triglyceride [Mass/Vol] 106 mg/dL Normal <150 [facility] Comment on above: Order Comment: Speci men Type: BLOOD SPECIMENOrdering Facility: [facility] Address: [address] [place] [address] Result Comment: <150 mg/dL, Normal 150-199 mg/dL, Borderline high 200-499 mg/dL, High >499 mg/dL, Very high Performed By: #### 2 4323-8, 57219-5 ####[facility] [id number] [place] [address] [place] XR Lumbar spine 3 Viewson IMPRESSION: Lumbar spine degenerative changes with L5-S1 disc space narrowing. Mortgage Loan Originator: ROSALINDA Transcribe Date/Time: Apr 14 2023 4:23P Dictated by : SUZE ALANIS MD This examination was interpreted and the report reviewed and electronically signed by: SUZE ALANIS MD on Apr 14 2023 4:24PM [facility] * * *Final Report* * * DATE OF EXAM: Apr 13 2023 11:48AM WOX 5228 - XR LUMBAR 3V AP/LAT/L5-S1 / PROCEDURE REASON: multiple diagnoses * * * * Physician Interpretation * * * * EXAM TITLE: XR LUMBAR 3V AP/LAT/L5-S1 EXAM DATE/TIME: 04/13/2023 11:48 AM COMPARISON: None. CLINICAL INDICATION/HISTORY: Low back pain TECHNIQUE: AP, lateral and cone down lateral views of the lumbar spine are presented. FINDINGS: There are five osg-shd-elufppb lumbar vertebrae. No fracture or subluxations are noted. There is L5-S1 disc space narrowing, with endplate sclerosis. There is minimal osteophyte formation. Kissing spine seen on lateral view. DIVISION OF RADIOLOGY Provider, Toy Tab[facility] - 04/14/2023 * * *Final Report* * * DATE OF EXAM: Apr 13 2023 11:48AM WOX 5228 - XR LUMBAR 3V AP/LAT/L5-S1 / PROCEDURE REASON: multiple diagnoses * * * * Physician Interpretation * * * * EXAM TITLE: XR LUMBAR 3V AP/LAT/L5-S1 EXAM DATE/TIME: 04/13/2023 11:48 AM COMPARISON: None. CLINICAL INDICATION/HISTORY: Low back pain TECHNIQUE: AP, lateral and cone down lateral views of the lumbar spine are presented. FINDINGS: There are five exh-ztv-zbcqinr lumbar vertebrae. No fracture or subluxations are noted. There is L5-S1 disc space narrowing, with endplate sclerosis. There is minimal osteophyte formation. Kissing spine seen on lateral view. IMPRESSION IMPRESSION: Lumbar spine degenerative changes with L5-S1 disc space narrowing. Mortgage Loan Originator: PSCB Transcribe Date/Time: Apr 14 2023 4:23P Dictated by : SUZE ALANIS MD This examination was interpreted and the report reviewed and electronically signed by: SUZE ALANIS MD on Apr 14 2023 4:24PM [facility] XR Lumbar spine 3 ViewsOrder ed By: [facility] Provider on 04-14-2023 [facility] CNOVon 04-13-2023 CNOV Office Visit (INTMWS ) MAGALY CHAO ([id number]) 1985 F Date Time Provider Department 04/13/23 10:40 AM REJI BAILEY INTKayaWS During your visit today, we recorded the following information about you: Pulse Respiration Blood pressure Weight 68/minute 18/minute 132/88 125.6 kg Reji Bailey MD 04/13/2023 12:11 PM Signed This note was created using varinodeter. Subjective Patient presents with: F/U 3 Month Magaly Chao is a patient I am meeting the [...] had chiropractic treatments with variable results. 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 She sees Dr. Dewey Peralta, [place] gynecology and Dr. Lai Griffiths for psychiatry. She was being transitioned from paroxetine to duloxetine in the near future. She was referred by her stunt double to Dr. Zelaya for a GI evaluation. [...] Skin PAST SURGICAL HISTORY Procedure Laterality Date ESOPHAGOGASTRODUODENOS COPY TRANSORAL DIAGNOSTIC 12/24/2014 EGD L'SCOPE DX W/WO [...] COMP METABOLIC PANEL - LIPID PANEL BASIC MD Reji Sheridan MD 04/13/2023 11:17 AM Signed Low salt diet. Allergies As (more content not included)... Normal [facility] XR LUMBAR 3V AP/LAT/L5-S1on 04-13-2023 XR LUMBAR 3V AP/LAT/L5-S1 * * *Final Report* * * DATE OF EXAM: Apr 13 2023 11:48AM WOX 5228 - XR LUMBAR 3V AP/LAT/L5-S1 / PROCEDURE REASON: multiple diagnoses * * * * Physician Interpretation * * * * EXAM TITLE: XR LUMBAR 3V AP/LAT/L5-S1 EXAM DATE/TIME: 04/13/2023 11:48 AM COMPARISON: None. CLINICAL INDICATION/HISTORY: Low back pain TECHNIQUE: AP, lateral and cone down lateral views of the lumbar spine are presented. FINDINGS: There are five xcy-gjs-qcrnxtn lumbar vertebrae. No fracture or subluxations are noted. There is L5-S1 disc space narrowing, with endplate sclerosis. There is minimal osteophyte formation. Kissing spine seen on lateral view. IMPRESSION: Lumbar spine degenerative changes with L5-S1 disc space narrowing. Mortgage Loan Originator: PSCB Transcribe Date/Time: Apr 14 2023 4:23P Dictated by : SUZE ALANIS MD This examination was interpreted and the report reviewed and electronically signed by: SUZE ALANIS MD on Apr 14 2023 4:24PM EST [id number] Normal [facility] XR Lumbar spine 3 Viewson Radiology Study observation (narrative) [facility] CNOVon 01-10-2023 CNOV Office Visit (INTMWS ) MAGALY CHAO ([id number]) 1985 F Date Time Provider Department 01/10/23 11:20 AM ENID KAUR During your visit today, we recorded the following information about you: Pulse Respiration Blood pressure Weight 64/minute 16/minute 132/88 128.8 kg Height 1.676 m Enid Kaur [address] PRODUCTION MANAGERKENDRA 01/10/2023 1:10 PM Signed CC: Patient presents with: Establish Care HPI Magaly Lexa is a 37 year old female who [...] of pain and recurrent skin infections. 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 Continue with current dose, (more content not included)... Normal [facility] CNOVon 01-06-2023 CNOV Office Visit (ALEXA ) MAGALY CHAO ([id number]) 1985 F Date Time Provider Department 01/06/23 2:30 PM AAMIR JOSE During your visit today, we recorded the following information about you: Temperature Pulse Blood pressure Weight 98.1 degrees 88/minute 128/72 129.2 kg Height 1.676 m Aamir Jose III, MD 01/06/2023 2:57 PM Signed HISTORY AND PHYSICAL Magaly Chao 1985 REFERRING PHYSICIAN: No ref. provider found [...] 10/07/2013 PAST SURGICAL HISTORY Procedure Laterality Date ESOPHAGOGASTRODUODENOS COPY TRANSORAL DIAGNOSTIC 12/24/14 EGD LAPAROSCOPY SURG CHOLECYSTECTOMY 10/07/13 Dr Aamir Jose TONSILLECTOMY AND ADENOIDECTOMY HX Current Outpatient Medications Medication Sig PARoxetine (PAXIL) 20 mg tablet Take 20 mg by mouth. sulfamethoxazole-trime thoprim (BACTRIM DS) 800-160 mg per tablet Take [...] ?C (98.1 ?F), height 167.6 cm (5' 6), weight 129.2 kg (284 lb 12.8 oz), [...] findings have been communicated to Dr. Enid Kaur APRN.CNP via shared medical record. This note will be forwarded to Dr. Enid Kaur APRN.CNP. Return to Clinic: The patient is instructed to follow-up with me as needed. Aamir Jose III, MD Allergies (more content not included)... Normal [facility] CNOV Office Visit (INTMWS ) MAGALY CHAO ([id number]) 1985 F Date Time Provider Department 01/06/23 10:40 AM ENID KAUR INTMWS During your visit today, we recorded the following information about you: Pulse Respiration Blood pressure Weight 76/minute 14/minute 138/86 127.5 kg Enid Kaur APRN.CNP 01/06/2023 11:04 AM Signed CC: Patient presents with: follow up - wound check HPI Magaly Chao is a 37 year old female who presents today for above. Patient reports there has been improvement in size of abscess and discomfort. Still draining quite a bit. Denies any new or worsening symptoms. Taking antibiotics as prescribed. REVIEW OF SYSTEMS See HPI PAST MEDICAL HISTORY Diagnosis Date Back pain Headache RUQ abdominal pain 10/07/13 PAST SURGICAL HISTORY Procedure Laterality Date ESOPHAGOGASTRODUODENOS COPY TRANSORAL DIAGNOSTIC 12/24/14 EGD LAPAROSCOPY SURG CHOLECYSTECTOMY 10/07/13 Dr Aamir Jose TONSILLECTOMY AND ADENOIDECTOMY HX ALLERGIES Morphine and Penicillins MEDICATIONS PARoxetine (PAXIL) 20 mg tablet Take 20 mg by mouth. sulfamethoxazole-trime thoprim (BACTRIM DS) 800-160 mg per tablet Take [...] occur. Patient agreeable to treatment plan. Enid Kaur APRN.MILTON Kaur APRN.CNP 01/06/2023 10:42 AM Signed Appointment with Dr. Jose, general surgery at 2:30 pm. His office is located at the specialty center [facility] Allergies As of Date: 01/06/2023 Noted Allergy Reaction MORPHINE 11/21/2014 9 - Itching PENICILLINS 11/22/2007 Comments: when young Date Reviewed: 01/04/2023 Reviewed by: Enid Kaur APRN.CNP - Fully Assessed Reason for Visit: follow up - wound check [Other] Primary Visit Diagnosis:Cutaneous abscess of chest wall [L02.213] Prescriptions as of 01/06/2023 - PARoxetine (PAXIL) 20 mg tablet Take 20 mg by mouth. - sulfamethoxazole-trime thoprim (BACTRIM DS) 800-160 mg per tablet Take by mouth. - ibuprofen (MOTRIN) 600 mg tablet - cyclobenzaprine (FLEXERIL) 5 mg tablet Take by mouth. - mupirocin (BACTROBAN) 2 % ointment Apply inside nares twice a day for 10 days - Chlorhexidine Gluconate 2 % liqd Wash entire body once daily for 10 days, follow directions on bottle - cephALEXin (KEFLEX) 500 mg capsule Take 1 capsule by mouth three times daily for 7 days. - medroxyPROGESTERone (DEPO-PROVERA) 400 mg/mL susp Inject 400 mg intramuscularly every 12 weeks. - PNV no.95/ferrous fum/folic ac ( ORAL) Take by mouth. - norgestimate 0.25 mg-ethinyl estradiol 35 mcg (SPRINTEC, ORTHO-CYCLEN) 0.25-35 mg-mcg per tablet Take 1 tablet by mouth once daily. Problem List As Of Date 01/06/2023 Noted Resolved Headache [R51] Back pain [M54.9] RUQ abdominal pain [R10.11] 10/07/2013 Other instructions from your clinician: Appointment with Dr. Jose, general surgery at 2:30 pm. His office is located at the specialty center building on [facility] Annotated image of FEMALE BODY, DORSAL/VENTR (more content not included)... Normal [facility] CNOVon 01-04-2023 CNOV Office Visit (INTMWS ) MAGALY CHAO ([id number]) 1985 F Date Time Provider Department 01/04/23 12:00 PM VINCENT ENID INTMWS During your visit today, we recorded the following information about you: Pulse Respiration Blood pressure Weight 95/minute 18/minute 129/72 127.5 kg Enid Kaur YOUSUF 01/04/2023 12:46 PM Signed CC: Patient presents with: ER follow up - abcess on chest ROSALINE Mckenzie Lexa is a 37 year old female who presents today for above. Patient was seen in [facility] ER on 01/02 for abscess on [...] 10/07/13 PAST SURGICAL HISTORY Procedure Laterality Date ESOPHAGOGASTRODUODENOS COPY TRANSORAL DIAGNOSTIC 12/24/14 EGD LAPAROSCOPY SURG CHOLECYSTECTOMY 10/07/13 Dr Aamir Jose TONSILLECTOMY AND ADENOIDECTOMY HX ALLERGIES Morphine and Penicillins MEDICATIONS sulfamethoxazole-trime thoprim (BACTRIM DS) 800-160 mg per tablet Take [...] in no acute distress, alert DATA REVIEWED: [facility] ER visit notes ASSESSMENT/PLAN: 1. Cutaneous [...] symptoms occur. Patient agreeable to treatment plan. YOUSUF Le APRN.CNP 01/04/2023 12:26 PM Addendum If the chlorhexidine wash is too expensive or not covered then treat with the following: Dilute bleach baths (one teaspoon bleach per gallon of water, or one-fourth cup bleach per one-fourth tub [approximately 13 gallons of water] for 15 minutes twice weekly) for approximately three months Allergies As of Date: 01/04/2023 Noted Aller (more content not included)... Normal [facility] HbA1c (Bld)on 01-04-2023 Average glucose Estimated from glycated hemoglobin (Bld) [Mass/Vol] 120 mg/dL Normal [facility] Comment on above: Order Comment: Speci men Type: BLOOD SPECIMENOrdering Facility: [facility] Address: [address] [place] [id number] Result Comment: eAG: (Estimated average glucose) is a calculated value from HgbA1c and is healthcare sales representative of the average blood glucose level in the last 2-3 month period. Performed By: #### 5 5454-3 ####[facility] [id number] [place] [address] [place] HbA1c (Bld) [Mass fraction] 5.8 % High 4.3-5.6 [facility] Comment on above: Order Comment: Speci men Type: BLOOD SPECIMENOrdering Facility: [facility] Address: [address] [place] [address] Result Comment: [place] Diabetes Association guidelines indicate that patients with HgbA1c in the range 5.7-6.4% are at increased risk for development of diabetes, and intervention by lifestyle modification may be beneficial. HgbA1c greater or equal to 6.5% is considered diagnostic of diabetes. Performed By: #### 5 5454-3 ####[facility] [id number] [place] [address] [place] Culture, urineOrdered By: Brandon Monroy on 12-26-2022 Bacteria identified Cx Nom (U) Positive [facility] Absolute lymphocyte countOrd ered By: Nikunj Monroy on 12-24-2022 Lymphocytes Auto (Unsp spec) [#/Vol] 4.00 10*3/uL 0.83-4.51 [facility] Basophil percentageOrdered B y: Nikunj Monroy on 12-24-2022 Basophil percentage 0-5 SEEN /hpf 0-[address] [facility] Basophils/100 WBC (Bld) 0.6 % 0-1 [facility] Bilirubin [Mass/Vol] 0.20 mg/dL 0.20-1.00 [facility] Comment on above: For patients on eltr ombopag therapy, use of [employer] [place] TBIL is not recommended. Chloride [Moles/Vol] 110 mmol/L 98-107 [facility] Eosinophils/100 WBC (Bld) 1.3 % 0-5 [facility] Glucose [Mass/Vol] 103 mg/dL 74-106 [facility] Comment on above: Fasting Glucose resu lt from 100 to 125 mg/dL suggests IMPAIRED HOMEOSTASIS per A.D.A. criteria. Neutrophils (Bld) [#/Vol] 4.6 10*3/uL 2.0-7.7 [facility] Neutrophils/100 WBC (Bld) 49.0 % 47-70 [facility] Potassium [Moles/Vol] 3.9 mmol/L 3.5-5.1 [facility] Protein [Mass/Vol] 7.3 g/dL 6.4-8.2 [facility] Sodium [Moles/Vol] 141 mmol/L 136-145 [facility] WBC (Bld) [#/Vol] 9.3 10*3/uL 4.4-11.0 [facility] Bilirubin Test strip Ql (U)O rdered By: Nikunj Monroy on 12-24-2022 Bilirubin Ql (U) Negative Negative [facility] Blood erythrocytes count (nu mber/volume)Ordered By: Nikunj Monroy on 12-24-2022 RBC (Bld) [#/Vol] 4.42 10*6/uL 4.2-5.4 [facility] Blood hemoglobin measurement (mass/volume)Ordered By: Nikunj Monroy on 12-24-2022 Hemoglobin (Bld) [Mass/Vol] 13.0 g/dL 12.0-15.0 [facility] Blood lymphocytes/100 leukoc ytesOrdered By: Nikunj Monroy on 12-24-2022 Lymphocytes/100 WBC (Bld) 42.9 % 19-41 [facility] Blood monocytes/100 leukocyt esOrdered By: Nikunj Monroy on 12-24-2022 Monocytes/100 WBC (Bld) 6.0 % 0-10 [facility] Blood platelet mean volumeOr dered By: Nikunj Monroy on 12-24-2022 Platelet mean volume (Bld) [Entitic vol] 11.6 fL 6.2-12.0 [facility] Determination of erythrocyte mean corpuscular volume (MCV)Ordered By: Nikunj Monroy on 12-24-2022 MCV (RBC) [Entitic vol] 91.4 fL 81-99 [facility] Hematocrit Auto (Bld) [Volum e fraction]Ordered By: Nikunj Monroy on 12-24-2022 Hematocrit (Bld) [Volume fraction] 40.4 % 37-47 [facility] Ketones Test strip Ql (U)Ord ered By: Nikunj Monroy on 12-24-2022 Ketones Ql (U) Negative Negative [facility] Laboratory - Chemistry and C hemistry - challengeOrdered By: Nikunj Monroy on 12-24-2022 HCG ( test) Ql (U) Negative [facility] Comment on above: Very dilute urine sp ecimens, as indicated by a low specificgravity, may not contain healthcare sales representative levels of hCG. If is still suspected, a first morning urinespecimen should be collected 48 hours later and tested. ALP [Catalytic activity/Vol] 51 U/L 45-117 [facility] ALT [Catalytic activity/Vol] 29 U/L 13-56 [facility] CO2 [Moles/Vol] 23.0 mmol/L 21.0-32.0 [facility] Globulin (S) [Mass/Vol] 3.6 g/dL 2.2-4.2 [facility] Lipase [Catalytic activity/Vol] 137 U/L 73-393 [facility] Urea nitrogen/Creatinine [Mass ratio] 16.2 mg/mg 10-20 [facility] Laboratory - Hematology and Cell countsOrdered By: Nikunj Monroy on 12-24-2022 Erythrocyte distribution width (RBC) [Entitic vol] 45.0 fL 35.1-43.9 [facility] Erythrocyte distribution width (RBC) [Ratio] 13.2 % 11.6-14.6 [facility] Immature granulocytes/100 WBC (Bld) 0.200 % 0.0-0.9 [facility] Comment on above: IG% - Immature Granu locytes (promyelocytes, myelocytes and metamyelocytes) > 1% indicates that a LEFT SHIFT is Present. MCH (RBC) [Entitic mass] 29.4 pg 27.0-32.0 [facility] Nucleated RBC/100 WBC (Bld) [Ratio] 0 % 0-5 [facility] MCHC Auto (RBC) [Mass/Vol]Or dered By: Nikunj Monroy on 12-24-2022 MCHC (RBC) [Mass/Vol] 32.2 g/dL 32-36 [facility] Mucus LM Ql (Urine sed)Order ed By: Nikunj Monroy on 12-24-2022 Mucus Ql (Urine sed) 3+ /hpf [facility] Nitrite Test strip Ql (U)Ord ered By: Nikunj Monroy on 12-24-2022 Nitrite Ql (U) Negative Negative [facility] No Panel InformationOrdered By: Nikunj Monroy on 12-24-2022 Estimated Creatinine Clearance Calc 78.38 ml/min [facility] Estimated GFR (MDRD) Amer 88 mL/min >60 [facility] Comment on above: GFR Calc Estimated GFR (MDRD) Non-Af Amer 73 mL/min >60 [facility] Comment on above: Non- GFR Calc Platelets bldOrdered By: Ciera Monroy on 12-24-2022 Platelets (Bld) [#/Vol] 254 10*3/uL 150-450 [facility] Protein Test strip Ql (U)Ord ered By: Nikunj Monroy on 12-24-2022 Protein Ql (U) Negative Negative [facility] Serum or plasma albumin misty urement (mass/volume)Ordered By: Nikunj Monroy on 12-24-2022 Albumin [Mass/Vol] 3.7 g/dL 3.2-5.0 [facility] Serum or plasma albumin/glob ulin mass ratioOrdered By: Nikunj Monroy on 12-24-2022 Albumin/Globulin [Mass ratio] 1.0 {ratio} 0.9-2.4 [facility] Serum or plasma calcium misty urement (mass/volume)Ordered By: Nikunj Monroy on 12-24-2022 Calcium [Mass/Vol] 9.4 mg/dL 8.5-10.1 [facility] Serum or plasma creatinine m easurement (mass/volume)Ordered By: Nikunj Monroy on 12-24-2022 Creatinine [Mass/Vol] 0.92 mg/dL 0.55-1.02 [facility] Comment on above: The validity of the calculated GFR & GFRAA in patients over 70 years has not been determined. Clinical correlation is essential. Serum or plasma urea nitroge n measurement (mass/volume)Ordered By: Nikunj Monroy on 12-24-2022 Urea nitrogen [Mass/Vol] 15 mg/dL 7-18 [facility] Squamous epithelial cells de tection in urine sediment by light microscopyOrdered By: Nikunj Monroy on 12-24-2022 Epithelial cells.squamous LM Ql (Urine sed) 5-10 SEEN /hpf 5-10 [facility] Thin prep Papanicolaou smear with manual screeningOrdered By: Nikunj Monroy on 12-24-2022 Thin prep Papanicolaou smear with manual screening 13 U/L 15-37 [facility] Thin prep Papanicolaou smear with manual screening 8 5-15 [facility] Urine blood detectionOrdered By: Nikunj Monroy on 12-24-2022 RBC Ql (U) 25 /ul Negative [facility] RBC Ql (U) 0-5 SEEN /hpf 0-5 [facility] Urine clarityOrdered By: Ciera Monroy on 12-24-2022 Clarity (U) Sl. Cloudy Clear [facility] Urine color determinationOrd ered By: Nikunj Monroy on 12-24-2022 Color (U) Yellow Yellow [facility] Urine glucose detectionOrder ed By: Nikunj Monroy on 12-24-2022 Glucose Ql (U) Normal mg/dl Normal [facility] Urine leukocyte esterase det ection by dipstickOrdered By: Nikunj Monroy on 12-24-2022 Leukocyte esterase Test strip Ql (U) 25 /ul Negative [facility] Urine pHOrdered By: Nikunj cueto on 12-24-2022 pH (U) 5.0 [pH] 5.0 - 8.0 [facility] Urine sediment bacteria coun t by microscopy (number/high power field)Ordered By: Nikunj Monroy on 12-24-2022 Bacteria LM.HPF (Urine sed) [#/Area] 2 /[HPF] None Seen [facility] Urine specific gravity measu rementOrdered By: Nikunj Monroy on 12-24-2022 Specific gravity (U) [Rel density] 1.025 1.002-1.030 [facility] Urobilinogen Auto test strip Ql (U)Ordered By: Nikunj Monroy on 12-24-2022 Urobilinogen Ql (U) Normal mg/dl Normal [facility] CNOVon 08-08-2022 CNOV Office Visit (UCWSTR ) MAGALY CHAO ([id number]) 1985 F Date Time Provider Department 08/08/22 5:30 PM MANDA CASTREJON During your visit today, we recorded the following information about you: Temperature Pulse Respiration Blood pressure 99 degrees 76/minute 18/minute 128/82 Weight 122.9 kg Manda Castrejon APRN.CHEMICAL PLANT OPERATOR SUPERVISOR 08/08/2022 6:04 PM Signed Subjective HPI HPI Magaly Chao is a 36 year old female who presents today for CC of cough, congestion. This started 3 days ago. Has tried otc medication for relief. Symptoms are worsened by nothing. Risk factors sick exposures at home. Denies possibility of being . .Patient presents with: Nasal Congestion: chest congestion, cough x 3 days PAST MEDICAL HISTORY Diagnosis Date Back pain Headache RUQ abdominal pain 10/07/13 PAST SURGICAL HISTORY Procedure Laterality Date ESOPHAGOGASTRODUODENOS COPY TRANSORAL DIAGNOSTIC 12/24/14 EGD LAPAROSCOPY SURG CHOLECYSTECTOMY 10/07/13 Dr Aamir Jose TONSILLECTOMY AND ADENOIDECTOMY HX ALLERGIES Morphine and Penicillins MEDICATIONS triamcinolone acetonide (KENALOG) 0.1 % cream Apply 1 application to affected area twice daily. Apply to affected area. Location: hands multivitamin tablet Take 1 tablet by mouth once daily. Woman's multivitamin medroxyPROGESTERone (DEPO-PROVERA) 400 mg/mL susp Inject 400 mg intramuscularly every 12 weeks. predniSONE (DELTASONE) 20 mg tablet Take 2 tablets by mouth once daily for 5 days. benzonatate (TESSALON PERLE) 100 mg capsule Take 2 capsules by mouth three times daily as needed. PNV no.95/ferrous fum/folic ac ( ORAL) Take by mouth. (Patient not taking: Reported on 08/08/2022) norgestimate 0.25 mg-ethinyl estradiol 35 mcg (SPRINTEC, ORTHO-CYCLEN) 0.25-35 mg-mcg per tablet Take 1 tablet by mouth once daily. (Patient not taking: Reported on 08/08/2022) FAMILY HISTORY Problem Relation Age of Onset Hypertension Father other (Depression [Other]) Father Cancer Mother eye Breast Cancer Unknown Prostate Cancer Unknown Diabetes Unknown Coronary Artery Disease Unknown Social History Tobacco Use Smoking status: Former Packs/day: 2.00 Years: 18.00 Pack years: 36.00 Types: Cigarettes Quit date: 10/16/2014 Years since quittin.8 Smokeless tobacco: Never Substance Use Topics Alcohol use: Yes Comment: 2 beers once a month Drug use: No Review of Systems Constitutional: Negative for fever. HENT: Positive for congestion. Negative for ear pain, nosebleeds and sore throat. Respiratory: Positive for cough. Negative for shortness of breath and wheezing. Cardiovascular: Positive for chest pain (with cough). Musculoskeletal: Negative for neck pain. Objective Blood pressure 128/82, pulse 76, temperature 37.2 ?C (99 ?F), resp. rate 18, weight 122.9 kg (271 lb), last menstrual period 01/03/2017, SpO2 97 %, unknown if currently . Physical Exam Constitutional: General: She is not in acute distress. Appearance: She is not toxic-appearing or diaphoretic. HENT: Head: Normocephalic and atraumatic. Cardiovascular: Rate and Rhythm: Normal rate and regular rhythm. Heart sounds: Normal heart sounds, S1 normal and S2 normal. Pulmonary: Effort: Pulmonary effort is normal. Breath sounds: Normal breath sounds. Lymphadenopathy: Cervical: No cervical adenopathy. Right cervical: No superficial cervical adenopathy. Left cervical: No superficial cervical adenopathy. Neurological: Mental Status: She is alert and oriented to person, place, and time. Gait: Gait is intact. ASSESSMENT/PLAN: 1. URI, acute - ICD9: 465.9, ICD10: J06.9 - Discussed viral etiology and rationale for treatment. - Symptomatic treatment with prn analgesia - Supportive care with fluids and rest - Follow up in 3-5 days if symptoms persist or sooner if worsening of symptoms - PREDNISONE 20 MG TABLET - COVID WITH FLUA+B, ROUTINE - BENZONATATE 100 MG CAPSULE Agrees to plan Manda Castrejon APRN.CHEMICAL PLANT OPERATOR SUPERVISOR Referring Provider: SELF [200] Allergies As of Date: 08/08/2022 Noted Allergy Reaction MORPHINE 11/21/2014 9 - Itching PENICILLINS 11/22/2007 Comments: when young Date Reviewed: 08/08/2022 Reviewed by: Sirisha Barrera - Fully Assessed Reason for Visit: Nasal Congestion [235] Cmt: chest congestion, cough x 3 days Primary Visit Diagnosis:URI, acute [J06.9] Order(s):predniSONE (DELTASONE) 20 mg tabletTake 2 tablets by mouth once daily for 5 days.Disp: 10 tabletRfl: 0 COVID WITH FLUA+B, ROUTINE [SQCOVFLU] Order #: [id number]. #:[id number] benzonatate (TESSALON PERLE) 100 mg capsuleTake 2 capsules by mouth three times daily as needed.Disp: 30 capsuleRfl: 0 Prescriptions as of 08/08/2022 - medroxyPROGESTERone (DEPO-PROVERA) 400 mg/mL susp Inject 400 mg intramuscularly every 12 weeks. - predniSONE (DELTASONE) 20 mg t (more content not included)... Normal [facility] Absolute lymphocyte counton 07-08-2022 Lymphocytes Auto (Unsp spec) [#/Vol] 4.35 10*3/uL 0.83-4.51 [facility] Work Phone: Basophil percentageon 2021 Basophil percentage 0-5 SEEN /hpf 0-[address] [facility] Work Phone: Basophils/100 WBC (Bld) 0.4 % 0-1 [facility] Work Phone: Chloride [Moles/Vol] 105 mmol/L 98-107 [facility] Work Phone: Eosinophils/100 WBC (Bld) 0.9 % 0-5 [facility] Work Phone: Glucose [Mass/Vol] 107 mg/dL 74-106 [facility] Work Phone: Comment on above: Fasting Glucose resu lt from 100 to 125 mg/dL suggests IMPAIRED HOMEOSTASIS per A.D.A. criteria. Neutrophils (Bld) [#/Vol] 7.5 10*3/uL 2.0-7.7 [facility] Work Phone: Neutrophils/100 WBC (Bld) 58.9 % 47-70 [facility] Work Phone: Potassium [Moles/Vol] 4.3 mmol/L 3.5-5.1 [facility] Work Phone: Comment on above: Moderate Hemolysis, Result may be falsely increased. Sodium [Moles/Vol] 140 mmol/L 136-145 [facility]: WBC (Bld) [#/Vol] 12.7 10*3/uL 4.4-11.0 [facility] Work Phone: Beta hCG serum qualon 2021 Beta HCG ( test) Ql Negative [facility] Work Phone: Bilirubin Test strip Ql (U)o n 07-08-2022 Bilirubin Ql (U) Negative Negative [facility] Work Phone: Blood erythrocytes count (nu mber/volume)on 07-08-2022 RBC (Bld) [#/Vol] 4.73 10*6/uL 4.2-5.4 [facility] Work Phone: Blood hemoglobin measurement (mass/volume)on 07-08-2022 Hemoglobin (Bld) [Mass/Vol] 14.0 g/dL 12.0-15.0 [facility] Work Phone: Blood lymphocytes/100 leukoc yteson 07-08-2022 Lymphocytes/100 WBC (Bld) 34.3 % 19-41 [facility] Work Phone: Blood monocytes/100 leukocyt eson 07-08-2022 Monocytes/100 WBC (Bld) 5.1 % 0-10 [facility] Work Phone: Blood platelet mean volumeon 07-08-2022 Platelet mean volume (Bld) [Entitic vol] 11.8 fL 6.2-12.0 [facility] Work Phone: [phone] Determination of erythrocyte mean corpuscular volume (MCV)on 07-08-2022 MCV (RBC) [Entitic vol] 89.4 fL 81-99 [facility] Work Phone: [phone] Hematocrit Auto (Bld) [Volum e fraction]on 07-08-2022 Hematocrit (Bld) [Volume fraction] 42.3 % 37-47 [facility] Work Phone: [phone] Ketones Test strip Ql (U)on 07-08-2022 Ketones Ql (U) Negative Negative [facility] Work Phone: [phone] Laboratory - Chemistry and C hemistry - challengeon 07-08-2022 CO2 [Moles/Vol] 27.0 mmol/L 21.0-32.0 [facility] Work Phone: [phone] Urea nitrogen/Creatinine [Mass ratio] 16.0 mg/mg 10-20 [facility] Work Phone: [phone] Laboratory - Hematology and Cell countson 07-08-2022 Erythrocyte distribution width (RBC) [Entitic vol] 44.1 fL 35.1-43.9 [facility] Work Phone: [phone] Erythrocyte distribution width (RBC) [Ratio] 13.4 % 11.6-14.6 [facility] Work Phone: [phone] Immature granulocytes/100 WBC (Bld) 0.400 % 0.0-0.9 [facility] Work Phone: [phone] Comment on above: IG% - Immature Granu locytes (promyelocytes, myelocytes and metamyelocytes) > 1% indicates that a LEFT SHIFT is Present. MCH (RBC) [Entitic mass] 29.6 pg 27.0-32.0 [facility] Work Phone: [phone] Nucleated RBC/100 WBC (Bld) [Ratio] 0 % 0-5 [facility] Work Phone: [phone] MCHC Auto (RBC) [Mass/Vol]on 07-08-2022 MCHC (RBC) [Mass/Vol] 33.1 g/dL 32-36 [facility] Work Phone: [phone] Mucus LM Ql (Urine sed)on Mucus Ql (Urine sed) 0 SEEN /hpf [facility] Work Phone: Nitrite Test strip Ql (U)on 07-08-2022 Nitrite Ql (U) Negative Negative [facility] Work Phone: No Panel Informationon 07-08 Estimated Creatinine Clearance Calc 74.45 ml/min [facility] Work Phone: Estimated GFR (MDRD) Amer 86 mL/min >60 [facility] Work Phone: Comment on above: GFR Calc Estimated GFR (MDRD) Non-Af Amer 71 mL/min >60 [facility] Work Phone: Comment on above: Non- GFR Calc Platelets bldon 07-08-2022 Platelets (Bld) [#/Vol] 286 10*3/uL 150-450 [facility] Work Phone: Protein Test strip Ql (U)on 07-08-2022 Protein Ql (U) Negative Negative [facility] Work Phone: Serum or plasma calcium misty urement (mass/volume)on 07-08-2022 Calcium [Mass/Vol] 9.8 mg/dL 8.5-10.1 [facility] Work Phone: Serum or plasma creatinine m easurement (mass/volume)on 07-08-2022 Creatinine [Mass/Vol] 0.94 mg/dL 0.55-1.02 [facility] Work Phone: Comment on above: The validity of the calculated GFR & GFRAA in patients over 70 years has not been determined. Clinical correlation is essential. Serum or plasma urea nitroge n measurement (mass/volume)on 07-08-2022 Urea nitrogen [Mass/Vol] 15 mg/dL 7-18 [facility] Work Phone: [phone] Squamous epithelial cells de tection in urine sediment by light microscopyon 07-08-2022 Epithelial cells.squamous LM Ql (Urine sed) 5-10 SEEN /hpf 5-10 [facility] Work Phone: [phone] Thin prep Papanicolaou smear with manual screeningon 07-08-2022 Thin prep Papanicolaou smear with manual screening 8 5-15 [facility] Work Phone: Urine blood detectionon 06-17 RBC Ql (U) Negative Negative [facility] Work Phone: RBC Ql (U) 0 SEEN /hpf 0-5 [facility] Work Phone: Urine clarityon 07-08-2022 Clarity (U) Clear Clear [facility] Work Phone: Urine color determinationon 07-08-2022 Color (U) Straw Yellow [facility] Work Phone: Urine glucose detectionon Glucose Ql (U) Normal mg/dl Normal [facility] Work Phone: Urine leukocyte esterase det ection by dipstickon 07-08-2022 Leukocyte esterase Test strip Ql (U) 25 /ul Negative [facility] Work Phone: Urine pHon 07-08-2022 pH (U) 6.0 [pH] 5.0 - 8.0 [facility] Work Phone: Urine sediment bacteria coun t by microscopy (number/high power field)on 07-08-2022 Bacteria LM.HPF (Urine sed) [#/Area] 1 /[HPF] None Seen [facility] Work Phone: Urine specific gravity measu rementon 07-08-2022 Specific gravity (U) [Rel density] 1.015 1.002-1.030 [facility] Work Phone: Urobilinogen Auto test strip Ql (U)on 07-08-2022 Urobilinogen Ql (U) Normal mg/dl Normal [facility] Work Phone: Vital Signs Date Time Vital Sign Value Performing Clinician [facility] 04-13-2023 10:39-0400 Diastolic blood pressure 88 mm[Hg] Reji Bailey MD Work Phone: [facility] 04-13-2023 10:39-0400 Heart rate 68 /min Reji Bailey MD Work Phone: [facility] 04-13-2023 10:39-0400 Systolic blood pressure 132 mm[Hg] Reji Bailey MD Work Phone: [facility] 04-13-2023 10:30-0400 Body weight 125.56 kg Reji Bailey MD Work Phone: [facility] 04-13-2023 10:30-0400 Respiratory rate 18 /min Reji Bailey MD Work Phone: [facility] 01-10-2023 10:59-0400 Body height 167.6 [address] PRODUCTION MANAGER.CHEMICAL PLANT OPERATOR SUPERVISOR Work Phone: [facility] 01-10-2023 10:59-0400 Body weight 128.82 kg [address] Old[address] PRODUCTION MANAGER.CHEMICAL PLANT OPERATOR SUPERVISOR Work Phone: [facility] 01-10-2023 10:59-0400 Diastolic blood pressure 88 mm[Hg] Enid Older [address] PRODUCTION MANAGER.CHEMICAL PLANT OPERATOR SUPERVISOR Work Phone: [facility] 01-10-2023 10:59-0400 Heart rate 64 /min Enid Older [address] PRODUCTION MANAGER.CHEMICAL PLANT OPERATOR SUPERVISOR Work Phone: [facility] 01-10-2023 10:59-0400 Respiratory rate 16 /min Enid Older [address] PRODUCTION MANAGER.CHEMICAL PLANT OPERATOR SUPERVISOR Work Phone: [facility] 01-10-2023 10:59-0400 Systolic blood pressure 132 mm[Hg] Enid Older [address] PRODUCTION MANAGER.CHEMICAL PLANT OPERATOR SUPERVISOR Work Phone: [facility] 01-06-2023 14:32-0400 Body height 167.6 cm Aamir Jose MD Work Phone: [facility] 01-06-2023 14:32-0400 Body temperature 98.1 [degF] Aamir Jose MD Work Phone: [facility] 01-06-2023 14:32-0400 Body weight 129.18 kg Aamir Jose MD Work Phone: [facility] 01-06-2023 14:32-0400 Diastolic blood pressure 72 mm[Hg] Aamir Jose MD Work Phone: [facility] 01-06-2023 14:32-0400 Heart rate 88 /min Aamir Jose MD Work Phone: [facility] 01-06-2023 14:32-0400 SaO2% (BldA) [Mass fraction] 100 % Aamir Jose MD Work Phone: [facility] 01-06-2023 14:32-0400 Systolic blood pressure 128 mm[Hg] Aamir Jose MD Work Phone: [facility] 01-06-2023 10:28-0400 Body weight 127.46 [address] PRODUCTION MANAGER.CHEMICAL PLANT OPERATOR SUPERVISOR Work Phone: [facility] 01-06-2023 10:28-0400 Diastolic blood pressure 86 mm[Hg] Enid Older [address] PRODUCTION MANAGER.CHEMICAL PLANT OPERATOR SUPERVISOR Work Phone: [facility] 01-06-2023 10:28-0400 Heart rate 76 /min Enid Older [address] PRODUCTION MANAGER.CHEMICAL PLANT OPERATOR SUPERVISOR Work Phone: [facility] 01-06-2023 10:28-0400 Respiratory rate 14 /min Enid Older [address] PRODUCTION MANAGER.CHEMICAL PLANT OPERATOR SUPERVISOR Work Phone: [facility] 01-06-2023 10:28-0400 Systolic blood pressure 138 mm[Hg] Enid Older [address] PRODUCTION MANAGER.CHEMICAL PLANT OPERATOR SUPERVISOR Work Phone: [facility] 01-04-2023 11:51-0400 Body weight 127.46 [address] PRODUCTION MANAGER.CHEMICAL PLANT OPERATOR SUPERVISOR Work Phone: [facility] 01-04-2023 11:51-0400 Diastolic blood pressure 72 mm[Hg] Enid Older [address] PRODUCTION MANAGER.CHEMICAL PLANT OPERATOR SUPERVISOR Work Phone: [facility] 01-04-2023 11:51-0400 Heart rate 95 /min Enid Older [address] PRODUCTION MANAGER.CHEMICAL PLANT OPERATOR SUPERVISOR Work Phone: [facility] 01-04-2023 11:51-0400 Respiratory rate 18 /min Enid Older [address] PRODUCTION MANAGER.CHEMICAL PLANT OPERATOR SUPERVISOR Work Phone: [facility] 01-04-2023 11:51-0400 Systolic blood pressure 129 mm[Hg] Enid Older [address] PRODUCTION MANAGER.CHEMICAL PLANT OPERATOR SUPERVISOR Work Phone: [facility] 01-02-2023 12:01-0400 Body temperature 97.8 [degF] [facility] 01-02-2023 12:01-0400 Respiratory rate 16 /min [facility] 01-02-2023 12:01-0400 SaO2% (BldA) [Mass fraction] 100 % [facility] 01-02-2023 10:49-0400 Body height 167.64 cm [facility] 01-02-2023 10:49-0400 Body mass index (BMI) [Ratio] 45.1 kg/m2 [facility] 01-02-2023 10:49-0400 Body weight 127 kg [facility] 01-02-2023 10:49-0400 Diastolic blood pressure 94 mm[Hg] [facility] 01-02-2023 10:49-0400 Heart rate 91 /min [facility] 01-02-2023 10:49-0400 Systolic blood pressure 125 mm[Hg] [facility] 12-24-2022 22:11-0500 Respiratory rate 16 /min [facility] 12-24-2022 21:43-0500 Diastolic blood pressure 90 mm[Hg] [facility] 12-24-2022 21:43-0500 Heart rate 72 /min [facility] 12-24-2022 21:43-0500 SaO2% (BldA) [Mass fraction] 99 % [facility] 12-24-2022 21:43-0500 Systolic blood pressure 148 mm[Hg] [facility] 12-24-2022 18:22-0500 Body mass index (BMI) [Ratio] 46 kg/m2 [facility] 12-24-2022 18:22-0500 Body temperature 98 [degF] [facility] 12-24-2022 18:22-0500 Body weight 129.5 kg [facility] 11-28-2022 09:57-0500 Diastolic blood pressure 69 mm[Hg] [facility] 11-28-2022 09:57-0500 Heart rate 71 /min [facility] 11-28-2022 09:57-0500 Respiratory rate 15 /min [facility] 11-28-2022 09:57-0500 SaO2% (BldA) [Mass fraction] 97 % [facility] 11-28-2022 09:57-0500 Systolic blood pressure 121 mm[Hg] [facility] 11-28-2022 08:46-0500 Body height 167.64 cm [facility] 11-28-2022 08:46-0500 Body mass index (BMI) [Ratio] 45.6 kg/m2 [facility] 11-28-2022 08:46-0500 Body temperature 96.9 [degF] [facility] 11-28-2022 08:46-0500 Body weight 128.41 kg [facility] 08-08-2022 17:25-0400 Body temperature 99 [degF] Manda Cash [employer] PRODUCTION MANAGER.CHEMICAL PLANT OPERATOR SUPERVISOR Work Phone: [facility] 08-08-2022 17:25-0400 Body weight 122.92 kg Manda Cash [address] PRODUCTION MANAGER.CHEMICAL PLANT OPERATOR SUPERVISOR Work Phone: [facility] 08-08-2022 17:25-0400 Diastolic blood pressure 82 mm[Hg] Manda Cash [address] PRODUCTION MANAGER.CHEMICAL PLANT OPERATOR SUPERVISOR Work Phone: [facility] 08-08-2022 17:25-0400 Heart rate 76 /min Mnada Cash [address] PRODUCTION MANAGER.CHEMICAL PLANT OPERATOR SUPERVISOR Work Phone: [facility] 08-08-2022 17:25-0400 Respiratory rate 18 /min Manda Cash [address] PRODUCTION MANAGER.CHEMICAL PLANT OPERATOR SUPERVISOR Work Phone: [facility] 08-08-2022 17:25-0400 SaO2% (BldA) [Mass fraction] 97 % Manda Cash [address] PRODUCTION MANAGER.CHEMICAL PLANT OPERATOR SUPERVISOR Work Phone: [facility] 08-08-2022 17:25-0400 Systolic blood pressure 128 mm[Hg] Manda Cash [address] PRODUCTION MANAGER.CHEMICAL PLANT OPERATOR SUPERVISOR Work Phone: [facility] 07-08-2022 21:53-0400 Diastolic blood pressure 111 mm[Hg] [facility] Work Phone: 07-08-2022 21:53-0400 Heart rate 77 /min [facility] Work Phone: 07-08-2022 21:53-0400 Respiratory rate 16 /min [facility] Work Phone: 07-08-2022 21:53-0400 SaO2% (BldA) [Mass fraction] 98 % [facility] Work Phone: 07-08-2022 21:53-0400 Systolic blood pressure 159 mm[Hg] [facility] Work Phone: 07-08-2022 17:24-0400 Body height 165.1 cm [facility] Work Phone: 07-08-2022 17:24-0400 Body mass index (BMI) [Ratio] 45.6 kg/m2 [facility] Work Phone: 07-08-2022 17:24-0400 Body temperature 97.6 [degF] [facility] Work Phone: 07-08-2022 17:24-0400 Body weight 124.28 kg [facility] Work Phone: 05-04-2022 21:26-0400 Respiratory rate 16 /min [facility] Work Phone: 05-04-2022 21:25-0400 Diastolic blood pressure 89 mm[Hg] [facility] Work Phone: 05-04-2022 21:25-0400 Heart rate 74 /min [facility] Work Phone: 05-04-2022 21:25-0400 SaO2% (BldA) [Mass fraction] 97 % [facility] Work Phone: 05-04-2022 21:25-0400 Systolic blood pressure 128 mm[Hg] [facility] Work Phone: 05-04-2022 18:30-0400 Body height 165.1 cm [facility] Work Phone: 05-04-2022 18:30-0400 Body mass index (BMI) [Ratio] 45.7 kg/m2 [facility] Work Phone: 05-04-2022 18:30-0400 Body temperature 98.8 [degF] [facility] Work Phone: 05-04-2022 18:30-0400 Body weight 124.73 kg [facility] Work Phone: Encounters Encounter Date Encounter Type Care Provider Facility Start: 04-07-2025 End: 04-07-2025 ambulatory Lai Griffiths Facility[facility] Start: 01-13-2025 End: 01-13-2025 ambulatory Enid Michelle REPORTS ANALYSIS MANAGER Facility:[facility] Start: 11-25-2024 End: 11-25-2024 ambulatory Enid Michelle REPORTS ANALYSIS MANAGER Facility:[facility] Start: 09-24-2024 End: 09-24-2024 ambulatory Enid Michelle REPORTS ANALYSIS MANAGER Facility:[facility] Start: 07-09-2024 End: 07-09-2024 ambulatory Enid Michelle REPORTS ANALYSIS MANAGER Facility:[facility] Start: 05-08-2024 End: 05-08-2024 ambulatory Enid Michelle REPORTS ANALYSIS MANAGER Facility:[facility] Start: 05-15-2023 End: 05-16-2023 ambulatory SHARLENE O'LUIS ENRIQUE Facility:[facility] Start: 05-15-2023 End: 05-15-2023 ambulatory Sharlene O'Luis Enrique PT [facility] Comment on above: Chronic bilateral lo w back pain without sciatica (Primary Dx) Start: 05-11-2023 End: 05-11-2023 ambulatory PAIGE BAILEY Facility:[facility] Start: 04-27-2023 End: 04-27-2023 ambulatory SHARLENE O'LUIS ENRIQUE Facility:[facility] Start: 04-27-2023 End: 04-27-2023 ambulatory Sharlene O'Luis Enrique PT [facility] Physical [facility] Comment on above: Chronic bilateral lo w back pain without sciatica (Primary Dx) Start: 04-17-2023 End: 04-18-2023 ambulatory PAIGE BAILEY Facility:[facility] Start: 04-13-2023 End: 04-13-2023 ambulatory REJI BAILEY Facility:[facility] Start: 04-13-2023 End: 04-13-2023 Subsequent hospital visit by physician Yazan [facility] Work Phone: Radiology Comment on above: Chronic bilateral lo w back pain without sciatica [M54.50, G89.29] Start: 04-13-2023 End: 04-13-2023 Patient encounter procedure Reji Bailey MD Work Phone: [facility] Comment on above: Chronic bilateral lo w back pain without sciatica (Primary Dx); Elevated blood pressure reading; Chronic pelvic pain in female Start: 01-10-2023 End: 01-10-2023 ambulatory ENID OLDER Facility:[facility] Start: 01-10-2023 End: 01-10-2023 Patient encounter procedure Enid Older [employer] [address] PRODUCTION MANAGER.CHEMICAL PLANT OPERATOR SUPERVISOR Work Phone: [facility] Comment on above: Elevated blood press ure reading in office without diagnosis of hypertension (Primary Dx); Anxiety; Depression, unspecified depression type; Chronic migraine without aura without status migrainosus, not intractable; Recurrent infection of skin; Chronic bilateral low back pain without sciatica; Obesity, Class III, BMI 40-49.9 (morbid obesity) (HCC); Chronic pelvic pain in female Start: 01-06-2023 End: 01-07-2023 ambulatory AAMIR JOSE Facility:[facility] Start: 01-06-2023 End: 01-06-2023 Patient encounter procedure Aamir Jose MD Work Phone: General Surgery Comment on above: Cutaneous abscess of chest wall (Primary Dx) Start: 01-06-2023 End: 01-07-2023 ambulatory ENID OLDER Facility:[facility] Start: 01-06-2023 End: 01-06-2023 Patient encounter procedure Enid Older [employer] [address] PRODUCTION MANAGER.CHEMICAL PLANT OPERATOR SUPERVISOR Work Phone: [facility] Comment on above: Cutaneous abscess of chest wall (Primary Dx) Start: 01-04-2023 End: 01-05-2023 ambulatory ENID OLDER Facility:[facility] Start: 01-04-2023 End: 01-04-2023 Patient encounter procedure Enid Kaur CHEMICAL PLANT OPERATOR SUPERVISOR Work Phone: [facility] Comment on above: Cutaneous abscess of chest wall (Primary Dx); Recurrent infection of skin Start: 01-02-2023 End: 01-02-2023 [facility] Start: 12-24-2022 End: 12-24-2022 Emergency department patient visit [facility] Start: 11-28-2022 End: 11-28-2022 [facility] Start: 08-08-2022 End: 08-08-2022 ambulatory REJI BAILEY Facility:[facility] Start: 08-08-2022 End: 08-08-2022 Patient encounter procedure Manda Castrejon APRN.CHEMICAL PLANT OPERATOR SUPERVISOR Work Phone: [facility] Comment on above: URI, acute (Primary Dx) Start: 07-08-2022 End: 07-08-2022 Emergency department patient visit [facility] Start: 05-04-2022 End: 05-04-2022 Emergency department patient visit [facility] Procedures Date Procedure Procedure Detail Performing Clinician Start: 04-13-2023 Radex spine lumbosac ral 2/3 views Reji Bailey MD Work Phone: Start: 12-24-2022 Computed tomography of abdomen and pelvis with intravenous contrast Start: 12-24-2022 Transvaginal echography Start: 07-08-2022 Transvaginal echography Start: 05-04-2022 CT cervical spine wi thout contrast Start: 05-04-2022 CT of head without contrast Urine culture Plan of Treatment Date Care Activity Detail Author Start: 05-04-2032 Urine microalbumin profile [facility] Start: 12-25-2027 HPV TESTING HPV TESTING [facility] Start: 12-25-2027 PAP TESTING PAP TESTING [facility] Start: 12-24-2025 Screening for malign ant neoplasm of cervix Cervical Cancer Screening [facility] Start: 06-16-2024 Covid-19 Vaccine () Covid-19 Vaccine () [facility] Start: 06-16-2024 Influenza vaccination Influenza Vacc ine (#1) [facility] Start: 01-11-2024 COVID-19 VACCINE (#1) COVID-19 VACCI NE (#1) [facility] Comment on above: Postponed from 04/14 (Declined at this time) Start: 06-16-2023 Influenza vaccination [facility] Start: 04-14-2023 End: 06-14-2023 CBC panel - Blood by Automated count CBC Lab Routine Elevated blood pressure reading Expected: 04/14/2023, Expires: 06/14/2023 [facility] Work Phone: Comment on above: Expected: 04/14/2023 , Expires: 06/14/2023 Start: 04-14-2023 End: 06-14-2023 Comprehensive metabolic 2000 panel - Serum or Plasma COMP METABOLIC PANEL Lab Routine Elevated blood pressure reading Expected: 04/14/2023, Expires: 06/14/2023 [facility] Work Phone: Comment on above: Expected: 04/14/2023 , Expires: 06/14/2023 Start: 04-14-2023 Influenza vaccination INFLUENZA (#1) [facility] Comment on above: Postponed from 06/16 (Declined at this time) Start: 04-14-2023 End: 06-14-2023 Lipid 1996 panel - Serum or Plasma LIPID PANEL BASIC Lab Routine Elevated blood pressure reading Expected: 04/14/2023, Expires: 06/14/2023 [facility] Work Phone: Comment on above: Expected: 04/14/2023 , Expires: 06/14/2023 Start: 01-04-2023 End: 03-06-2023 Hemoglobin A1c in Blood [facility] Work Phone: Comment on above: Expected: 01/04/2023 , Expires: 03/06/2023 Start: 10-16-2022 DEPRESSION ASSESSMENT DEPRESSION ASS [facility] Start: 06-16-2022 Influenza vaccination INFLUENZA (#1) [facility] Start: 10-16-2021 [facility] Start: 2015 HPV TESTING HPV TESTING [facility] Start: 2006 PAP TESTING PAP TESTING [facility] Start: 2004 Urine microalbumin profile DTAP,TDAP,TD (1 - Tdap) [facility] Start: 2003 HEPATITIS C SCREENING HEPATITIS C SC REENING [facility] Start: 2003 HIV SCREENING HIV SCREENING [facility] Start: 04-14-1986 COVID-19 VACCINE (#1) COVID-19 VACCI NE (#1) [facility] Start: 1985 HEPATITIS B (1 of 3 - 3-dose series) HEPATITIS B (1 of 3 - 3-dose series) [facility] Influenza virus A an d B RNA and SARS-CoV-2 (COVID-19) N gene panel - Respiratory specimen by ANNITA with probe detection COVID WITH FLUA+B, ROUTINE Microbiology Routine URI, acute Ordered: 08/08/2022 [facility] Work Phone: Comment on above: Ordered: 08/08/2022 Patient Education [facility] Work Phone: Patient referral [facility] Work Phone: PT PLAN OF CARE CERTIFICATION PT PLAN OF CARE CERTIFICATION Procedures Routine Chronic bilateral low back pain without sciatica Ordered: 04/27/2023 [facility] Comment on above: Ordered: 04/27/2023 End: 05-12-2024 Radex spine lumbosacral 2/3 views XR LUMBAR GENERAL 3V AP/LAT/L5-S1 Radiology Routine Chronic bilateral low back pain without sciatica 1 Occurrences starting 04/13/2023 until 05/12/2024 [facility] Work Phone: Comment on above: 1 Occurrences starti ng 04/13/2023 until 05/12/2024 Radex spine lumbosac ral 2/3 views XR LUMBAR GENERAL 3V AP/LAT/L5-S1 Radiology Routine Chronic bilateral low back pain without sciatica 04/13/2023 11:48 AM EDT [facility] Phone[facility] Immunizations Immunization Date Immunization Notes Care Provider Linnea turner 05-04-2022 tetanus toxoid, redu dianna diphtheria toxoid, and acellular pertussis vaccine, adsorbed [facility] 10-25-2013 Influenza virus vaccine [facility] 10-25-2013 influenza, seasonal, injectable, preservative free Enid Older [employer] [address] PRODUCTION MANAGER.CHEMICAL PLANT OPERATOR SUPERVISOR Work Phone: [facility] 10-25-2013 pneumococcal polysaccharide vaccine, 23 valent Enid Older [address] PRODUCTION MANAGER.CHEMICAL PLANT OPERATOR SUPERVISOR Work Phone: [facility] 10-25-2013 Pneumococcal Vaccine [facility] Work Phone: 10-25-2013 pneumococcal vaccine , unspecified formulation [facility] 10-25-2013 influenza virus vacc ine, unspecified formulation Xr [facility] Work Phone: [facility] 02-27-2003 TD(adult) unspecifie d formulation Enid Older [address] PRODUCTION MANAGER.CHEMICAL PLANT OPERATOR SUPERVISOR Work Phone: [facility] 08-19-1998 hepatitis B vaccine, pediatric or pediatric/adolescent dosage Enid Older [address] PRODUCTION MANAGER.CHEMICAL PLANT OPERATOR SUPERVISOR Work Phone: [facility] 01-27-1998 hepatitis B vaccine, pediatric or pediatric/adolescent dosage Enid Older [address] PRODUCTION MANAGER.CHEMICAL PLANT OPERATOR SUPERVISOR Work Phone: [facility] 12-23-1997 hepatitis B vaccine, pediatric or pediatric/adolescent dosage Enid Older [address] PRODUCTION MANAGER.CHEMICAL PLANT OPERATOR SUPERVISOR Work Phone: [facility] 12-23-1997 measles, mumps and rubella virus vaccine Enid Older [address] PRODUCTION MANAGER.CHEMICAL PLANT OPERATOR SUPERVISOR Work Phone: [facility] 05-30-1991 diphtheria, tetanus toxoids and pertussis vaccine Enid Older [address] PRODUCTION MANAGER.CHEMICAL PLANT OPERATOR SUPERVISOR Work Phone: [facility] 05-30-1991 trivalent poliovirus vaccine, live, oral Enid Older [address] PRODUCTION MANAGER.CHEMICAL PLANT OPERATOR SUPERVISOR Work Phone: [facility] 07-06-1989 haemophilus influenz ae type b vaccine, conjugate unspecified formulation Enid Older [address] PRODUCTION MANAGER.CHEMICAL PLANT OPERATOR SUPERVISOR Work Phone: [facility] 07-22-1987 diphtheria, tetanus toxoids and pertussis vaccine Enid Older [address] PRODUCTION MANAGER.CHEMICAL PLANT OPERATOR SUPERVISOR Work Phone: [facility] 07-22-1987 trivalent poliovirus vaccine, live, oral Enid Older [address] PRODUCTION MANAGER.CHEMICAL PLANT OPERATOR SUPERVISOR Work Phone: [facility] 02-18-1987 measles, mumps and rubella virus vaccine Enid Older [address] PRODUCTION MANAGER.CHEMICAL PLANT OPERATOR SUPERVISOR Work Phone: [facility] 07-16-1986 diphtheria, tetanus toxoids and pertussis vaccine Enid Older [address] PRODUCTION MANAGER.CHEMICAL PLANT OPERATOR SUPERVISOR Work Phone: [facility] 03-19-1986 diphtheria, tetanus toxoids and pertussis vaccine Enid Older [address] PRODUCTION MANAGER.CHEMICAL PLANT OPERATOR SUPERVISOR Work Phone: [facility] 03-19-1986 trivalent poliovirus vaccine, live, oral Enid Older [address] PRODUCTION MANAGER.CHEMICAL PLANT OPERATOR SUPERVISOR Work Phone: [facility] 01-15-1986 diphtheria, tetanus toxoids and pertussis vaccine Enid Older [address] PRODUCTION MANAGER.CHEMICAL PLANT OPERATOR SUPERVISOR Work Phone: [facility] 01-15-1986 trivalent poliovirus vaccine, live, oral Enid Older [address] PRODUCTION MANAGER.CHEMICAL PLANT OPERATOR SUPERVISOR Work Phone: [facility] Payers Date Payer Category Payer Self-pay [id number] 2016 Medicaid [id number] 2015 Unknown [id number] 2015 Unknown [id number] Unknown [id number] Unknown [id number] Unknown [id number] Unknown [id number] Unknown [id number] [id number] Unknown [id number] [id number] Social History Date Type Detail Facility [facility] Work Phone: Start: 05-04-2022 End: 01-02-2023 Tobacco smoking status [facility] Unknown if ever smoked [facility] Start: 10-23-2013 Occasional [facility] Start: 10-23-2013 None [facility] Start: 10-07-2013 Alone [facility] Start: 10-23-2013 Cigarettes [facility] Start: 1985 Sex Assigned At Female [facility] Start: 08-08-2022 [facility] Work Phone: Start: 10-16-1996 End: 10-16-2014 History of tobacco use Current smoker [facility] Work Phone: Start: 10-16-1996 End: 10-16-2014 History of tobacco use Cigarette Smoker [facility] Work Phone: Start: 08-08-2022 End: 04-13-2023 Cigarettes smoked current (pack per day) - Reported 2 [facility] Start: 08-08-2022 Tobacco use and exposure Smokeless tobacco non-user [facility] Work Phone: History of tobacco use Snuff User [facility] Work Phone: History of tobacco use Chews Tobacco [facility] Work Phone: Start: 08-08-2022 End: 04-13-2023 Alcohol intake Current drinker of alcohol (finding) [facility] Start: 11-21-2014 Alcohol Comment 2 beers once a month [facility] Start: 1985 Sex Assigned At Not on file [facility] Start: 01-09-2023 End: 04-13-2023 History SDOH Alcohol Frequency 3 [facility] Start: 01-09-2023 End: 04-13-2023 History SDOH Alcohol Std Drinks 1 [facility] Start: 01-09-2023 End: 04-13-2023 History SDOH Alcohol Binge 2 [facility] Start: 01-09-2023 History SDOH Social Connections Living 8 [facility] Start: 01-09-2023 History SDOH Financial 5 [facility] Start: 04-13-2023 Alcohol Comment 1-2 weekends, occasionally more. [facility] Start: 01-08-2023 End: 04-13-2023 Social connection and isolation panel [facility] Do you belong to any clubs or organizations such as bahai groups, unions, [employer] or athletic groups, or school groups? No [facility] Attends Club or Organization Meetings Not on file [facility] Are you now , , , , never or living with a partner? Living with partner [facility] How often to you hav e a drink containing alcohol? 2-4 times a month [facility] Work Phone: How many standard drinks containing alcohol do you have on a typical day? 1 or 2 [facility] Work Phone: How often do you hav e 6 or more drinks on 1 occasion? Less than monthly [facility] Work Phone: (I/We) worried wheth er (my/our) food would run out before (I/we) got money to buy more. Never true [facility] NEGATED: Highlighted row [facility] Mental Status Date Assessment Result Facility 05-04-2022 Cognitive function Level Of Cons ciousness Awake;Alert;Appropriate;Follow s Commands [facility] Work Phone: Clinical Notes 10-07-2013 to 05-15-2023 Sharlene Paz, PT - 05/15/2023 1:11 PM Sharlene Chou PT - 04/27/2023 10:05 AM EDTPatient InstructionsVictor Samy Bailey MD - 04/13/2023 10:59 AM EDTPatient InstructionsPatient Instructions Note Date & Type Note Facility 05-15-2023 Note HNO ID: [id number] Author: Sharlene Paz PT Service: ? Author Type: Physical Therapist Type: Progress Notes Filed: 06/26/2023 10:44 AM Note Text: 06/26/2023 [facility] REHABILITATION AND SPORTS THERAPY PHYSICAL THERAPY DISCONTINUANCE OF CARE Plan of Care Period: Start of Care Date: 04/27/23 Last Visit Date: 05/15/2023 Therapy Program: The following is a summary of the interventions provided for this episode of care; Therapeutic exercise, Manual therapy, Therapeutic activities, and Self-skilled nursing management Assessment: Based on most recent visit, patient was progressing slower than expected toward functional goals based on pain levels, documented subjective information on progress, and appointment compliance. Unable to formally assess goal achievement, as patient has not returned to therapy or scheduled additional follow-up appointments. Reason for Discontinuation of Care: Patient has not returned to therapy or scheduled additional follow-up appointments. Sharlene Paz, PT Episode Visit Count: 3 Therapist That Will Accept/Oversee The Plan Of Care: Sharlene Paz Start of Care Date: 04/27/23 Onset Date: 10/28/22 Plan of Care Certification Date: 04/27/23 Next Certification Due Date: 06/01/23 REHABILITATION AND SPORTS THERAPY PHYSICAL THERAPY TREATMENT NOTE ASSESSMENT: Magaly Chao tolerated the session with increased symptoms. She demonstrated continued centralization of symptoms to the midline of the low back from the B hips and LLE with extension directional preference as demonstrated during initial evaluation. The patient will continue to benefit from ongoing skilled physical therapy to progress toward set goals. Planned Treatment Interventions: Therapeutic exercise (40962), Neuromuscular re-education (04020), Manual therapy (06616), Therapeutic activities (44520), Self-skilled nursing management (36017), Gait Training (50157) PLAN FOR NEXT VISIT: continue extension directional [...] facilitated with verbal, visual, and tactile cueing. Self-Snf Management: 1: *discussed dermatomes using images, and reasoning for possible referred symptoms to the LE's from the lumbar spine, pt. describes symptom location very consistent with lower lumbar dermatome patterns 2: *discussed centralization symptom location pattern to expect if extension directional preference ex (more content not included)... [facility] 05-15-2023 History of Present illness Narrative Episode Visit Count: 3 Therapist That Will Accept/Oversee The Plan Of Care: Sharlene Paz Start of Care Date: 04/27/23 Onset Date: 10/28/22 Plan of Care Certification Date: 04/27/23 Next Certification Due Date: 06/01/23 REHABILITATION AND SPORTS THERAPY PHYSICAL THERAPY TREATMENT NOTE ASSESSMENT: Magaly Chao tolerated the session with increased symptoms. She demonstrated continued centralization of symptoms to the midline of the low back from the B hips and LLE with extension directional preference as demonstrated during initial evaluation. The patient will continue to benefit from ongoing skilled physical therapy to progress toward set goals. Planned Treatment Interventions: Therapeutic exercise (28134), Neuromuscular re-education (02104), Manual therapy (09994), Therapeutic activities (79587), Self-skilled nursing management (69580), Gait Training (85581) PLAN FOR NEXT VISIT: continue extension directional [...] facilitated with verbal, visual, and tactile cueing. Self-Snf Management: 1: *discussed dermatomes using images, and [...] : 1305 Session Stop Time : 1345 Sharlene Paz PT documented in this encounter [facility] 05-11-2023 Note HNO ID: [id number] Author: Sharlene Paz, PT Service: ? Author Type: Physical Therapist Type: Progress Notes Filed: 05/11/2023 9:23 AM Note Text: Episode Visit Count: 2 Therapist That Will Accept/Oversee The Plan Of Care: Sharlene Paz Start of Care Date: 04/27/23 Onset Date: 10/28/22 Plan of Care Certification Date: 04/27/23 Next Certification Due Date: 06/01/23 Patient Identified by Name and Date of : Yes REHABILITATION AND SPORTS THERAPY PHYSICAL THERAPY TREATMENT NOTE ASSESSMENT: Magaly Chao tolerated the session with decreased activity tolerance [...] Minutes (timed/untimed): 30 Session Start Time : 08 Session Stop Time : 829 ASHISH Hernandez, PT [facility] 04-27-2023 Note HNO ID: [id number] Author: Sharlene Paz PT Service: ? Author Type: Physical Therapist Type: Progress Notes Filed: 04/27/2023 10:41 AM Note Text: Episode Visit Count: 1 Therapist That Will Accept/Oversee The Plan Of Care: Sharlene Paz Start of Care Date: 04/27/23 Onset Date: 10/28/22 Plan of Care Certification Date: 04/27/23 Next Certification Due Date: 06/01/23 Patient Identified by Name and Date of : Yes REHABILITATION AND SPORTS THERAPY PHYSICAL THERAPY EVALUATION PLAN OF CARE: Assessment: Magaly Chao presents with diagnosis of chronic bilateral low [...] Planned: 6 Planned Treatment Interventions: Therapeutic exercise (94871), Neuromuscular re-education (26193), Manual therapy (82896), Therapeutic activities (48529), Self-skilled nursing management (82559), Gait Training (63546) PLAN FOR NEXT VISIT: assess symptom response to prone lay positioning to centralize symptoms Patient demonstrates good understanding of plan of care and treatment. The above goals and plan of care were discussed and agreed upon by patient/family. SUBJECTIVE: Magaly Chao is a 37 year old female seen [...] Treatment Pain Leve (more content not included)... [facility] 04-27-2023 History of Present illness Narrative Episode Visit Count: 1 Therapist That Will Accept/Oversee The Plan Of Care: Sharlene Paz Start of Care Date: 04/27/23 Onset Date: 10/28/22 Plan of Care Certification Date: 04/27/23 Next Certification Due Date: 06/01/23 Patient Identified by Name and Date of : Yes REHABILITATION AND SPORTS THERAPY PHYSICAL THERAPY EVALUATION PLAN OF CARE: Assessment: Magaly Chao presents with diagnosis of chronic bilateral low [...] Planned: 6 Planned Treatment Interventions: Therapeutic exercise (70708), Neuromuscular re-education (60726), Manual therapy (66528), Therapeutic activities (91950), Self-skilled nursing management (06799), Gait Training (64079) PLAN FOR NEXT VISIT: assess symptom response to prone lay positioning to centralize symptoms Patient demonstrates good understanding of plan of care and treatment. The above goals and plan of care were discussed and agreed upon by patient/family. SUBJECTIVE: Magaly Chao is a 37 year old female seen [...] Demonstration TREATMENT: PT Treatment Interventions: Therapeutic Exercise, Self-Snf Management Evaluation Therapeutic Exercise: 1: prone lay [...] and function . Patient education as noted. Self-Snf Management: 1: *discussed centralization of symptoms as [...] 15 Total Treatment Time Minutes (timed/untimed): 45 Sharlene Paz PT documented in this encounter [facility] 04-13-2023 Note HNO ID: [id number] Author: RT Tal(R) Service: ? Author Type: Body And Frame Man Type: Progress Notes Filed: 04/13/2023 11:47 AM Note Text: Radiology Service Progress Note PATIENT NAME: Magaly Chao DATE OF SERVICE: April 13, 2023 TIME: [...] RT Tal(R) April 13, 2023 11:37 AM [facility] 04-13-2023 Note HNO ID: [id number] Author: Reji Bailey MD Service: ? Author Type: Physician Type: Progress Notes Filed: 04/13/2023 12:11 PM Note Text: This note was created using [employer]. Subjective Patient presents with: F/U 3 Month Magaly Chao is a patient I am meeting the [...] had chiropractic treatments with variable results. 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 She sees Dr. Dewey Peralta, [place] [facility]ne[facility] and Dr. Lai Griffiths for psychiatry. She was being transitioned from paroxetine to duloxetine in the near future. She was referred by her stunt double to Dr. Zelaya for a GI evaluation. [...] - LIPID PANEL BASIC Reji Bailey MD [facility] 04-13-2023 Instructions Reji Bailey MD - 04/13/2023 11:17 AM EDT Low salt diet. documented in this encounter [facility] 04-13-2023 History of Present illness Narrative This note was created using [employer]. Subjective Patient presents with: F/U 3 Month Magaly Chao is a patient I am meeting the [...] had chiropractic treatments with variable results. 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 She sees Dr. Dewey Peralta, [place] gyne[facility] and Dr. Lia Griffiths for psychiatry. She was being transitioned from paroxetine to duloxetine in the near future. She was referred by her stunt double to Dr. Zelaya for a GI evaluation. [...] Reji Bailey MD documented in this encounter [facility] 01-10-2023 Note HNO ID: [id number] Author: Enid Kaur APRN.CHEMICAL PLANT OPERATOR SUPERVISOR Service: ? Author Type: Nurse Practitioner Type: Progress Notes Filed: 01/10/2023 1:10 PM Note Text: CC: Patient presents with: Establish Care HPI Magaly Chao is a 37 year old female who [...] of pain and recurrent skin infections. Her POWER BALLAST MACHINE OPERATOR prescribed Paxil a couple weeks ago, patient [...] 64 Resp 16 Ht 167.6 cm (5' 6) Wt 128.8 kg (284 lb) LMP 01/03/2017 [...] dose, she plans on following up with POWER BALLAST MACHINE OPERATOR for future refills for now - Reviewed benefits of sleep hygeine, diet and exercis - Instructed patient to contact office or [id number] after-hours promptly should condition worsen or any new symptoms appear. - Counselin (more content not included)... [facility] 01-10-2023 History of Present illness Narrative CC: Patient presents with: [facility] Magaly Lexa is a 37 year old female who [...] of pain and recurrent skin infections. Her POWER BALLAST MACHINE OPERATOR prescribed Paxil a couple weeks ago, patient [...] 64 Resp 16 Ht 167.6 cm (5' 6) Wt 128.8 kg (284 lb) LMP 01/03/2017 [...] dose, she plans on following up with POWER BALLAST MACHINE OPERATOR for future refills for now - Reviewed benefits of sleep hygeine, diet and exercis - Instructed patient to contact office or [id number] after-hours promptly should condition worsen or any new symptoms appear. - Counseling Center [facility] and after hours crisis line 3. Depression, [...] 625.9, 338.29, ICD10: R10.2, G89.29 Follow-up with POWER BALLAST MACHINE OPERATOR Prescription instructions reviewed with patient as applicable. Potential red flag symptoms discussed with the patient. Reviewed appropriate action plan to take if red flag symptoms occur. Patient agreeable to treatment plan. Enid Kaur APRN.CNP documented in this encounter [facility] 01-06-2023 Note HNO ID: [id number] Author: Aamir Jose MD Service: ? Author Type: Physician Type: Progress Notes Filed: 01/06/2023 2:57 PM Note Text: HISTORY AND PHYSICAL [facility] 1985 REFERRING PHYSICIAN: No ref. provider found [...] ?C (98.1 ?F), height 167.6 cm (5' 6), weight 129.2 kg (284 lb 12.8 oz), [...] deal with it in the office. Diagnoses: (L02.769) Cutaneous abscess of chest wall (primary encounter diagnosis) My findings have been communicated to Dr. Enid Kaur APRN.CNP via shared medical record. This note will be forwarded to Dr. Enid Kaur APRN.CNP. Return to Clinic: The patient is instructed to follow-up with me as needed. Aamir Jose III, MD [facility] 01-06-2023 History of Present illness Narrative HISTORY AND PHYSICAL [facility] 1985 REFERRING PHYSICIAN: No ref. provider found [...] C (98.1 F), height 167.6 cm (5' 6), weight 129.2 kg (284 lb 12.8 oz), [...] findings have been communicated to Dr. Enid Kaur APRN.CNP via shared medical record. This note will be forwarded to Dr. Enid Kaur APRN.CNP. Return to Clinic: The patient is instructed to follow-up with me as needed. Aamir Jose III, MD documented in this encounter [facility] 01-06-2023 Note HNO ID: [id number] Author: Enid Kaur APRN.CNP Service: ? Author Type: Nurse Practitioner Type: Progress Notes Filed: 01/06/2023 11:04 AM Note Text: CC: Patient presents with: follow up - wound check HPI Magaly Chao is a 37 year old female who [...] occur. Patient agreeable to treatment plan. Enid Kaur APRN.CNP [facility] 01-06-2023 Instructions Enid Kaur APRN.CNP - 01/06/2023 10:42 AM EDT Appointment with Dr. Jose, general surgery at 2:30 pm. His office is located at the specialty center building on [address] documented in this encounter [facility] 01-06-2023 History of Present illness Narrative Images from the original note were not included. CC: Patient presents with: follow up - wound check HPI Magaly Chao is a 37 year old female who [...] occur. Patient agreeable to treatment plan. Enid Kaur APRN.CNP documented in this encounter [facility] 01-04-2023 Note HNO ID: [id number] Author: Enid Kaur APRN.CNP Service: ? Author Type: Nurse Practitioner Type: Progress Notes Filed: 01/04/2023 12:46 PM Note Text: CC: Patient presents with: ER follow up - abcess on chest HPI Magaly Chao is a 37 year old female who presents today for above. Patient was seen in [facility] ER on 01/02 for abscess on [...] in no acute distress, alert DATA REVIEWED: [facility] ER visit notes ASSESSMENT/PLAN: 1. Cutaneous [...] occur. Patient agreeable to treatment plan. Enid Kaur APRN.CNP [facility] 01-04-2023 Instructions Enid Kaur APRN.CNP - 01/04/2023 12:26 PM EDT If the chlorhexidine wash is too expensive or not covered then treat with the following: Dilute bleach baths (one teaspoon bleach per gallon of water, or one-fourth cup bleach per one-fourth tub [approximately 13 gallons of water] for 15 minutes twice weekly) for approximately three months documented in this encounter [facility] 01-04-2023 History of Present illness Narrative Images from the original note were not included. CC: Patient presents with: ER follow up - abcess on chest HPI Magaly Chao is a 37 year old female who presents today for above. Patient was seen in [facility] ER on 01/02 for abscess on [...] EGD LAPAROSCOPY SURG CHOLECYSTECTOMY 10/07/13 Dr Aamir oJse TONSILLECTOMY AND ADENOIDECTOMY HX ALLERGIES Morphine and [...] in no acute distress, alert DATA REVIEWED: [facility] ER visit notes ASSESSMENT/PLAN: 1. Cutaneous [...] occur. Patient agreeable to treatment plan. Enid Kaur APRN.CNP documented in this encounter [facility] 08-08-2022 Influenza virus A and B RNA and SARS-CoV-2 (COVID-19) N gene panel ANNITA+probe (Resp) COVID 19 RESULT: SARS-CoV-2 (Agent of COVID-19) Not Detected by RT-PCR or equivalent method. javier [id number]_[employer] (CARLOS)_EUA This test was developed and its performance characteristics determined by [facility]'s [facility] [place]. This test has been authorized by FDA under an Emergency Use Authorization (EUA). This test has been validated in accordance with the FDA's Guidance Document Policy for Diagnostics Testing in Laboratories Certified to Perform High Complexity Testing under CLIA prior to Emergency use Authorization for Coronavirus Disease 2019 during the Public Health Emergency issued on December 14, 2019. Test performed by [facility], [facility] [place], [address] [address]. INFLUENZA A PCR: Negative for Influenza A by RT-PCR INFLUENZA B PCR: Negative for Influenza B by RT-PCR [facility] Comment on above: Performed By: #### 9 [id number] ####[facility] [id number] [address] [facility] 08-08-2022 Note HNO ID: [id number] Author: Manda Castrejon APRN.CHEMICAL PLANT OPERATOR SUPERVISOR Service: ? Author Type: Nurse Practitioner Type: Progress Notes Filed: 08/08/2022 6:04 PM Note Text: Subjective HPI HPI Magaly Chao is a 36 year old female who presents today for CC of cough, congestion. This started 3 days ago. Has tried otc medication for relief. Symptoms are worsened by nothing. Risk factors sick exposures at home. Denies possibility of being . .Patient presents with: Nasal Congestion: chest congestion, cough x 3 days PAST MEDICAL HISTORY Diagnosis Date Back pain Headache RUQ abdominal pain 10/07/13 PAST SURGICAL HISTORY Procedure Laterality Date ESOPHAGOGASTRODUODENOSCOPY TRANSORAL DIAGNOSTIC 12/24/14 EGD LAPAROSCOPY SURG CHOLECYSTECTOMY 10/07/13 Dr Aamir Jose TONSILLECTOMY AND ADENOIDECTOMY HX ALLERGIES Morphine and Penicillins MEDICATIONS triamcinolone acetonide (KENALOG) 0.1 % cream Apply 1 application to affected area twice daily. Apply to affected area. Location: hands multivitamin tablet Take 1 tablet by mouth once daily. Woman's multivitamin medroxyPROGESTERone (DEPO-PROVERA) 400 mg/mL susp Inject 400 mg intramuscularly every 12 weeks. predniSONE (DELTASONE) 20 mg tablet Take 2 tablets by mouth once daily for 5 days. benzonatate (TESSALON PERLE) 100 mg capsule Take 2 capsules by mouth three times daily as needed. PNV no.95/ferrous fum/folic ac ( ORAL) Take by mouth. (Patient not taking: Reported on 08/08/2022) norgestimate 0.25 mg-ethinyl estradiol 35 mcg (SPRINTEC, ORTHO-CYCLEN) 0.25-35 mg-mcg per tablet Take 1 tablet by mouth once daily. (Patient not taking: Reported on 08/08/2022) FAMILY HISTORY Problem Relation Age of Onset Hypertension Father other (Depression [Other]) Father Cancer Mother eye Breast Cancer Unknown Prostate Cancer Unknown Diabetes Unknown Coronary Artery Disease Unknown Social History Tobacco Use Smoking status: Former Packs/day: 2.00 Years: 18.00 Pack years: 36.00 Types: Cigarettes Quit date: 10/16/2014 Years since quittin.8 Smokeless tobacco: Never Substance Use Topics Alcohol use: Yes Comment: 2 beers once a month Drug use: No Review of Systems Constitutional: Negative for fever. HENT: Positive for congestion. Negative for ear pain, nosebleeds and sore throat. Respiratory: Positive for cough. Negative for shortness of breath and wheezing. Cardiovascular: Positive for chest pain (with cough). Musculoskeletal: Negative for neck pain. Objective Blood pressure 128/82, pulse 76, temperature 37.2 ?C (99 ?F), resp. rate 18, weight 122.9 kg (271 lb), last menstrual period 01/03/2017, SpO2 97 %, unknown if currently . Physical Exam Constitutional: General: She is not in acute distress. Appearance: She is not toxic-appearing or diaphoretic. HENT: Head: Normocephalic and atraumatic. Cardiovascular: Rate and Rhythm: Normal rate and regular rhythm. Heart sounds: Normal heart sounds, S1 normal and S2 normal. Pulmonary: Effort: Pulmonary effort is normal. Breath sounds: Normal breath sounds. Lymphadenopathy: Cervical: No cervical adenopathy. Right cervical: No superficial cervical adenopathy. Left cervical: No superficial cervical adenopathy. Neurological: Mental Status: She is alert and oriented to person, place, and time. Gait: Gait is intact. ASSESSMENT/PLAN: 1. URI, acute - ICD9: 465.9, ICD10: J06.9 - Discussed viral etiology and rationale for treatment. - Symptomatic treatment with prn analgesia - Supportive care with fluids and rest - Follow up in 3-5 days if symptoms persist or sooner if worsening of symptoms - PREDNISONE 20 MG TABLET - COVID WITH FLUA+B, ROUTINE - BENZONATATE 100 MG CAPSULE Agrees to plan Manda Castrejon APRN.CHEMICAL PLANT OPERATOR SUPERVISOR [facility] 08-08-2022 History of Present illness Narrative Subjective HPI HPI Magaly Chao is a 36 year old female who presents today for CC of cough, congestion. This started 3 days ago. Has tried otc medication for relief. Symptoms are worsened by nothing. Risk factors sick exposures at home. Denies possibility of being . .Patient presents with: Nasal Congestion: chest congestion, cough x 3 days PAST MEDICAL HISTORY Diagnosis Date Back pain Headache RUQ abdominal pain 10/07/13 PAST SURGICAL HISTORY Procedure Laterality Date ESOPHAGOGASTRODUODENOSCOPY TRANSORAL DIAGNOSTIC 12/24/14 EGD LAPAROSCOPY SURG CHOLECYSTECTOMY 10/07/13 Dr Aamir Jose TONSILLECTOMY AND ADENOIDECTOMY HX ALLERGIES Morphine and Penicillins MEDICATIONS triamcinolone acetonide (KENALOG) 0.1 % cream Apply 1 application to affected area twice daily. Apply to affected area. Location: hands multivitamin tablet Take 1 tablet by mouth once daily. Woman's multivitamin medroxyPROGESTERone (DEPO-PROVERA) 400 mg/mL susp Inject 400 mg intramuscularly every 12 weeks. predniSONE (DELTASONE) 20 mg tablet Take 2 tablets by mouth once daily for 5 days. benzonatate (TESSALON PERLE) 100 mg capsule Take 2 capsules by mouth three times daily as needed. PNV no.95/ferrous fum/folic ac ( ORAL) Take by mouth. (Patient not taking: Reported on 08/08/2022) norgestimate 0.25 mg-ethinyl estradiol 35 mcg (SPRINTEC, ORTHO-CYCLEN) 0.25-35 mg-mcg per tablet Take 1 tablet by mouth once daily. (Patient not taking: Reported on 08/08/2022) FAMILY HISTORY Problem Relation Age of Onset Hypertension Father other (Depression [Other]) Father Cancer Mother eye Breast Cancer Unknown Prostate Cancer Unknown Diabetes Unknown Coronary Artery Disease Unknown Social History Tobacco Use Smoking status: Former Packs/day: 2.00 Years: 18.00 Pack years: 36.00 Types: Cigarettes Quit date: 10/16/2014 Years since quittin.8 Smokeless tobacco: Never Substance Use Topics Alcohol use: Yes Comment: 2 beers once a month Drug use: No Review of Systems Constitutional: Negative for fever. HENT: Positive for congestion. Negative for ear pain, nosebleeds and sore throat. Respiratory: Positive for cough. Negative for shortness of breath and wheezing. Cardiovascular: Positive for chest pain (with cough). Musculoskeletal: Negative for neck pain. Objective Blood pressure 128/82, pulse 76, temperature 37.2 C (99 F), resp. rate 18, weight 122.9 kg (271 lb), last menstrual period 01/03/2017, SpO2 97 %, unknown if currently . Physical Exam Constitutional: General: She is not in acute distress. Appearance: She is not toxic-appearing or diaphoretic. HENT: Head: Normocephalic and atraumatic. Cardiovascular: Rate and Rhythm: Normal rate and regular rhythm. Heart sounds: Normal heart sounds, S1 normal and S2 normal. Pulmonary: Effort: Pulmonary effort is normal. Breath sounds: Normal breath sounds. Lymphadenopathy: Cervical: No cervical adenopathy. Right cervical: No superficial cervical adenopathy. Left cervical: No superficial cervical adenopathy. Neurological: Mental Status: She is alert and oriented to person, place, and time. Gait: Gait is intact. ASSESSMENT/PLAN: 1. URI, acute - ICD9: 465.9, ICD10: J06.9 - Discussed viral etiology and rationale for treatment. - Symptomatic treatment with prn analgesia - Supportive care with fluids and rest - Follow up in 3-5 days if symptoms persist or sooner if worsening of symptoms - PREDNISONE 20 MG TABLET - COVID WITH FLUA+B, ROUTINE - BENZONATATE 100 MG CAPSULE Agrees to plan Manda Castrejon APRN.MILTON documented in this encounter [facility] 10-07-2013 History of Past i llness Narrative Problem Noted Date Resolved Date RUQ abdominal pain 10/07/2013 01/10/2023 documented as of this encounter (statuses as of 01/10/2023) [facility] History of Past illness Narrative* Problem Noted Date Resolved Date RUQ abdominal pain 10/07/2013 01/10/2023 documented as of this encounter (statuses as of 04/13/2023) [facility] History of Past illness Narrative* Problem Noted Date Diagnosed Date Resolved Date RUQ abdominal pain 10/07/2013 3 documented as of this encounter (statuses as of 04/27/2023) [facility] History of Past illness Narrative* Problem Noted Date Diagnosed Date Resolved Date RUQ abdominal pain 10/07/2013 3 documented as of this encounter (statuses as of 05/15/2023) [facility] November 28, 2022 9:52am Note Date/Time November 28, 2022 9:09am [facility] Medical Records Department [address] [place] [address] Emergency Department Summary 11/28/22 MR#: [id number] Acct: [id number] Name: MAGALY CHAO Rep #:[id number] : 1985 37 From: Shelton Hatfield MD PCP: Care Physician,No Primary Status :REG ER Location: ED HPI History of Present Illness Chief Complaint: Abscess Informant: patient Onset/Context/Timing Onset: Days (4) Context: Gradual Onset Timing: Continuous Quality: sore Location: R forearm Current Severity: Moderate Maximum Severity: Moderate Worsened by: palpation Relieved by: nothing Associated Symptoms Associated Symptoms: scant d/c this AM. no fevers/systemic sx. Narrative Narrative: 37-year-old healthy female states she had spontaneous onset of painful swollen area right mid forearm, the pain radiates up and down the forearm, she think shecould have been bitten by something, she is noted no necrotic tissue just redness and swelling and a scant amount of discharge on the bandage this morning. No IV drug use. No systemic symptoms. PFSH PFSH Medical History no medical history no medical history Home Medications meclizine 50 mg tablet (Antivert) 50 mg PO BID PRN dizziness #10 tabs 05/04/22 [Rx Last Taken Unknown] ondansetron 4 mg disintegrating tablet 4 mg PO Q8H PRN nausea and vomiting #10 tabs 05/04/22 [Rx Last Taken Unknown] hydrocodone-acetaminophen 5-325mg 5mg-325mg 1 tab PO Q6H PRN pain 3 days #10 tabs 07/08/22 [Rx Last Taken Unknown] ondansetron 4 mg disintegrating tablet 4 mg PO Q8H PRN nausea and vomiting #10 tabs 07/08/22 [Rx Last Taken Unknown] sulfamethoxazole 800 mg-trimethoprim 160 mg tablet 1 tab PO BID #20 TABLETS 11/28/22 [Rx Last Taken Unknown] Allergy/AdvReac Type Severity Reaction Status Date / Time Penicillins Allergy Unknown Verified 11/28/22 08:46 morphine AdvReac Vomiting Verified 11/28/22 08:46 Surgical History History of cholecystectomy Hx of tonsillectomy Social History Smoking Status: Former smoker ROS ROS ED Constitutional Constitutional ED: Denies chills or fever(s) Musculoskeletal Musculoskeletal: Reports extremity pain; Denies neck pain Integumentary Reports as per HPI and abscess; Denies Abrasions or rash Neurologic Neurologic: Denies paresthesias or weakness EXAM Physical Exam Const Vital Signs: 11/28/22 08:46 Temperature 96.9 F L Temperature Source Temporal Pulse Rate 91 Respiratory Rate 16 Blood Pressure 181/90 H Blood Pressure Mean 120 Pulse Ox 100 Oxygen Delivery Method Room Air Positive well nourished and well developed General Appearance ED: well developed and NAD Neck full ROM and supple Back/Spine normal ROM and normal to inspection Extremity Extremity Narrative: Tender skin abscess dorsum right forearm otherwise full range of motion elbow, wrist, all compartments soft and nondistended Neuro oriented x3, no focal motor deficits and no sensory deficits noted Sensorium / Orientation: alert Psych mental status grossly normal and thought process normal Skin no wounds Skin Narrative: 3 cm pointing indurated extremely tender abscess dorsal right mid forearm, no lymphangitis, there is some surrounding cellulitis but no spontaneous discharge suppressible. Rashes: no rashes MDM MDM MDM Narrative Medical decision making narrative: The appearance of this is that of a MRSA abscess in my judgment. There is no evidence of necrotic tissue or different discoloration or blue/white discoloration, to suggest a black or brown recluse bite here. I reassuredher, I am not able to rule out the possibility of a spider bite, however I wouldnot change the treatment of this. I&D was performed see the procedure note, andshe will be placed on Bactrim to cover MRSA. We discussed reasons to return andproper care at home. Procedures Other Procedures Procedure(s): Incision and drainage simple, cutaneous abscess right forearm: Prepped and draped in sterile fashion with chlorhexidine and isopropanol, local anesthesia with 2 cc plain 1% lidocaine, followed by incision centrally with a #11 blade, expressing moderate amount of purulent material and some blood. Deloculated bluntly gently with scissors, more pus expressed, irrigated the cavity with saline, expressed that gently and dressed with bacitracin. Too small to pack. Tolerated well no complications. Discharge Plan Triage Chief Complaint: Abscess ED Provider: Shelton Hatfield Dx/Rx/DC Orders Clinical Impression: Abscess of forearm, right Instructions: ED Abscess Incision And Drainage Prescriptions: New sulfamethoxazole-trimethoprim [sulfamethoxazole-trimethoprim] 800-160 mg tablet 1 tab PO BID Qty: 20 0RF No Action Antivert 50 mg tablet 50 mg PO BID PRN (Reason: dizziness) Qty: 10 0RF ondansetron 4 mg tablet,disintegrating 4 mg PO Q8H PRN (Reason: nausea and vomiting) Qty: 10 0RF hydrocodone-acetaminophen 5-325 mg tablet 1 tab PO Q6H PRN (Reason: pain) 3 Days Qty: 10 0RF ondansetron 4 mg tablet,disintegrating 4 mg PO Q8H PRN (Reason: nausea and vomiting) Qty: 10 0RF Primary Care Provider: Care Physician,No Primary Referrals: Doctor,Your [Non-Staff] - As Needed Disposition Disposition: Home, Self Care What to do if you have Problems For any increased pain, shortness of breath, bleeding, nausea or vomiting, chestpain, or any unexpected problems, contact your Primary Care Provider. Call [facility] ([phone]) or report to the closest Emergency Room. Call 911 if necessary. 11/28/22 0952 <Electronically signed by Shelton Hatfield MD> Cosigner Signature (if applicable): CC: No Primary Care Physician ~ Signed [facility] Work Phone: Discharge summary Author Dr. Bashir [facility] January 02, 2023 12:06pm Note Date/Time January 02, 2023 11: 13am [facility] Medical Records Department [address] [place] [address] Emergency Department Summary 01/02/23 MR#: [id number] Acct: [id number] Name: MAGALY CHAO Rep #:[id number] : 1985 37 From: Bernardo Bashir MD PCP: Care Physician,No Primary Status :REG ER Location: ED HPI History of Present Illness Chief Complaint: Abscess Narrative Narrative: 37-year-old female who denies significant past medical history presents with area on her right upper chest that is reddened and painful. She states that there was a small pimple that she noticed on the area where her bra was rubbing against her skin. She thought nothing of it. The area became more irritated over the last 3 days. She denies any fevers but states she felt chilled yesterday. No nausea or vomiting. The area has become more reddened and firm, and she has pain radiating up towards her neck, and down her chest, and worse when she tries to raise her right arm completely. PFSH PFSH Medical History no medical history no medical history Home Medications cyclobenzaprine 5 mg tablet 5 mg PO TID PRN PRN Pain 01/02/23 [History Last Taken Unknown] sulfamethoxazole 800 mg-trimethoprim 160 mg tablet (Bactrim DS) 1 tab PO BID #14tabs 01/02/23 [Rx Last Taken Unknown] Allergy/AdvReac Type Severity Reaction Status Date / Time Penicillins Allergy Unknown Verified 01/02/23 10:48 morphine AdvReac Vomiting Verified 01/02/23 10:48 Surgical History History of cholecystectomy Hx of tonsillectomy Social History Smoking Status: Former smoker ROS ROS ED ROS Narrative Constitutional: No fever, positive chills. HEENT: No sore throat. No neck pain. No loss of vision. No rhinorrhea. Cardiovascular: No chest pain. No palpitations. No pedal edema. Respiratory: No cough, no shortness of breath. Abdominal: No abdominal pain. No nausea. No vomiting. Genitourinary: No dysuria. No hematuria. Musculoskeletal: No myalgias. No arthralgias. Neurologic: No headaches. No dizziness. No lightheadedness. Skin: No rash. Redness and firmness to right upper chest. Psychiatric: No depression. No anxiety. EXAM Physical Exam Narrative Exam Narrative: Afebrile. Vital signs noted. Nontoxic-appearing. HEENT: Normocephalic. Atraumatic. PERRL, EOMI. Neck soft and supple. No pointtenderness or step off. Cardiovascular: Regular rate and rhythm. No murmurs, rubs, or gallops appreciated. Respiratory: No tachypnea. Lungs clear to auscultation bilaterally. Gastrointestinal: Abdomen soft, nontender, with normoactive bowel sounds. No rebound or guarding. Neurological: Awake. Alert. Nonfocal, nonlateralizing. Skin: No rash. Positive erythema with induration to right upper chest. Small area of eschar/area of previous lesion/break in skin. Musculoskeletal: No pedal edema. Full range of motion extremities. Const Vital Signs: 01/02/23 10:49 Temperature 97.8 F Temperature Source Temporal Pulse Rate 91 Respiratory Rate 18 Blood Pressure 125/94 H Blood Pressure Mean 104 Pulse Ox 99 Oxygen Delivery Method Room Air MDM MDM MDM Narrative Medical decision making narrative: Concern is for cutaneous abscess of the right chest wall. Patient was given herfirst dose of Bactrim DS here in the emergency department. I will write her prescription for 10 days. I discussed at length with her incision and drainage versus needle aspiration. Given the amount of pain that she is having, she elected for incision and drainage. See procedure note for detail. She was toldof the risk of continued infection, scarring of her skin, and the possibility that there will only be return of blood as the area is more indurated. Procedure note: Povidine iodine was used as skin preparation. Lidocaine 1% was used as a local anesthetic. Stellate incision was made using a #11 blade near the area of eschar. There was minimal return of serosanguineous material, no purulent material. Area was probed and loculated and lightly irrigated. I do not feel that packing is indicated. Patient tolerated procedure well. Given that there was not a large amount of purulent drainage, I do think that that was more indurated area. She will take [id number] analgesics. She was written a prescription for Bactrim DS and referred to a primary care provider. I feel she be discharged safely home with follow-up. Return instructions to the emergency department were reviewed. Disposition is discharged home in stable condition. History & Record Review Discussion w/independent historian: Patient Additional record(s) reviewed:: Prior ED visit Discharge Plan Triage Chief Complaint: Abscess ED Provider: Bernardo Bashir Dx/Rx/DC Orders Clinical Impression: Cutaneous abscess of chest wall, Status post incision and drainage Instructions: ED Abscess Incision And Drainage, ED Cellulitis Prescriptions: New sulfamethoxazole-trimethoprim [Bactrim DS] 800-160 mg tablet 1 tab PO BID Qty: 14 0RF No Action cyclobenzaprine 5 mg tablet 5 mg PO TID PRN PRN (Reason: Pain) Primary Care Provider: Care Physician,No Primary Referrals: Kaylene Hunt, [Med Staff - Uniform Room Attendant] - 2 Days for wound check Care Physician,No Primary [Primary Care Provider] - Disposition Disposition: Home, Self Care What to do if you have Problems For any increased pain, shortness of breath, bleeding, nausea or vomiting, chestpain, or any unexpected problems, contact your Primary Care Provider. Call [facility] ([phone]) or report to the closest Emergency Room. Call 911 if necessary. 01/02/23 1206 <Electronically signed by Bernardo Bashir MD> Cosigner Signature (if applicable): CC: No Primary Care Physician ~ Signed [facility] Work Phone: [email or web address] noteNo assessment information available [facility] Work Phone: [email or web address] note* Diagnosis URI, acute- Primary Acute upper respiratory infections of unspecified site documented in this encounter [facility] note* Diagnosis Cutaneous abscess of chest wall- Primary Cellulitis and abscess of trunk Recurrent infection of skin documented in this encounter [facility] note* Diagnosis Cutaneous abscess of chest wall- Primary Cellulitis and abscess of trunk [facility] Diagnosis Cutaneous abscess of chest wall- Primary Cellulitis and abscess of trunk [facility] Diagnosis Elevated blood pressure reading in [...] female genital organs [facility] Diagnosis Chronic bilateral low back pain without sciatica- Primary Elevated blood pressure reading Elevated blood pressure reading without diagnosis of hypertension Chronic pelvic pain in female Unspecified symptom associated with female genital organs [facility] Diagnosis Chronic bilateral low back pain without sciatica- Primary [facility] Diagnosis Chronic bilateral low back pain without sciatica- Primary documented in this encounter [facility] note* Diagnosis Chronic bilateral low back pain without sciatica documented in this encounter [facility] for referral (narrative)* Diagnostic Procedure Only (Routine) - Closed Specialty Diagnoses / Procedures Referred By Contac t Referred To Contact XR IMAGING Diagnoses Chronic bilateral low back pain without sciatica Procedures XR LUMBAR GENERAL 3V AP/LAT/L5-S1 RADEX SPINE LUMBOSACRAL 2/3 VIEWS Reji Bailey MD [address] [id number] [place] [address] Referral ID Status Reason Start Date Expiration Date V isits Requested Visits Authorized [id number] Closed Auto-Generate d Referral 04/13/2023 05/12/2024 1 1 [facility] for visit Narrative* Diagnostic Procedure Only (Routine) - Closed Specialty Diagnoses / Procedures Referred By Contac t Referred To Contact XR IMAGING Diagnoses Chronic bilateral low back pain without sciatica Procedures XR LUMBAR GENERAL 3V AP/LAT/L5-S1 RADEX SPINE LUMBOSACRAL 2/3 VIEWS Reji Bailey MD [address] [place] [address] [place] [address] Referral ID Status Reason Start Date Expiration Date V isits Requested Visits Authorized [id number] Closed Auto-Generate d Referral 04/13/2023 05/12/2024 1 1 [facility] Chief Complaint and Reason for Visit Chief Complaint HEAD INJURY WITH LAC Chief Complaint HEAD INJURY WITH LAC PELVIC Chief Complaint ABSCESS Chief Complaint ABSCESS PELVIC ABSCESS Advance Directives No Advanced Directives Records Found Advance Directive Response Recorded Date/ Time Advance Directives No October 23, 2013 9:29pm Living Will No May 04, 2022 6:36pm Power of Vp [employer] No May 04 6:36pm Advance Directive Response Recorded Date/ Time Advance Directives No October 23, 2013 9:29pm Living Will No July 08, 2022 6:14pm Power of Vp [employer] No June 6:14pm Advance Directive Response Recorded Date/ Time Advance Directives No October 23, 2013 8:29pm Living Will No November 28 8:51am Power of Vp [employer] No November 28, 2022 8:51am Advance Directive Response Recorded Date/ Time Advance Directives No October 23, 2013 9:29pm Living Will No January 02, 2023 11:00am Power of Vp [employer] No January 02 11:00am Reason for Referral Specialty Diagnoses / Procedures Referred By Contac t Referred To Contact [facility] Diagnoses Chronic bilateral low back pain without sciatica Procedures CONSULT TO PHYSICAL THERAPY PHYSICAL THERAPY EVALUATION HIGH COMPLEX 45 MINS Reji Bailey MD [address] [place] [address] [facility] [address] [place] [address] Referral ID Status Reason Start Date Expiration Date Visits Requested Visits Authorized [id number] Pending Review Auto-Generat ed Referral 04/13/2023 04/12/2024 1 1 Specialty Diagnoses / Procedures Referred By Contac t Referred To Contact XR IMAGING Diagnoses Chronic bilateral low back pain without sciatica Procedures XR LUMBAR GENERAL 3V AP/LAT/L5-S1 RADEX SPINE LUMBOSACRAL 2/3 VIEWS Reji Bailey MD [address] [place] [address] Xr Imaging Referral ID Status Reason Start Date Expiration Date V isits Requested Visits Authorized [id number] Closed Auto-Generate d Referral 04/13/2023 05/12/2024 1 1 Specialty Diagnoses / Procedures Referred By Contac t Referred To Contact [facility] Diagnoses Chronic bilateral low back pain without sciatica Procedures PT REHAB FOLLOW UP ORDER THERAPEUTIC EXERCISES RE, EA 15 MIN. Sharlene Paz, PT [facility] [address] [place] [address] Referral ID Status Reason Start Date Expiration Date Visits Requested Visits Authorized [id number] Authorized PCP Requested Referral Auto-Generate d Referral 04/27/2023 07/28/2023 12 12 Summary Purpose Family History No Family History Records FoundNo Family History Records Found Additional Source Comments Goals (unrecognized section and content) Goals may be documented in a n alternate sectionGoals may be documented in an alternate sectionGoals may be documented in an alternate sectionGoals may be documented in an alternate section Source Comments (unrecognize d section and content) In the event this informatio n is protected by the Federal Confidentiality of Alcohol and Drug Abuse Patient Records regulations: The Federal rules restrict any use of the information to criminally investigate or prosecute any alcohol or drug abuse patient.[facility] event this information is protected by the Federal Confidentiality of Alcohol and Drug Abuse Patient Records regulations: The Federal rules restrict any use of the information to criminally investigate or prosecute any alcohol or drug abuse patient.[facility] the event this information is protected by the Federal Confidentiality of Alcohol and Drug Abuse Patient Records regulations: The Federal rules restrict any use of the information to criminally investigate or prosecute any alcohol or drug abuse patient.[facility] the event this information is protected by the Federal Confidentiality of Alcohol and Drug Abuse Patient Records regulations: The Federal rules restrict any use of the information to criminally investigate or prosecute any alcohol or drug abuse patient.[facility] the event this information is protected by the Federal Confidentiality of Alcohol and Drug Abuse Patient Records regulations: The Federal rules restrict any use of the information to criminally investigate or prosecute any alcohol or drug abuse patient.[facility] the event this information is protected by the Federal Confidentiality of Alcohol and Drug Abuse Patient Records regulations: The Federal rules restrict any use of the information to criminally investigate or prosecute any alcohol or drug abuse patient.[facility] the event this information is protected by the Federal Confidentiality of Alcohol and Drug Abuse Patient Records regulations: The Federal rules restrict any use of the information to criminally investigate or prosecute any alcohol or drug abuse patient.[facility] the event this information is protected by the Federal Confidentiality of Alcohol and Drug Abuse Patient Records regulations: The Federal rules restrict any use of the information to criminally investigate or prosecute any alcohol or drug abuse patient.[facility] the event this information is protected by the Federal Confidentiality of Alcohol and Drug Abuse Patient Records regulations: The Federal rules restrict any use of the information to criminally investigate or prosecute any alcohol or drug abuse patient.[facility] Reason for Visit (unrecogniz ed section and content) Reason Comments Nasal Congestion chest congestion, co ugh x 3 days Reason Comments ER follow up - abcess [...] THERAPY EVALUATION HIGH COMPLEX 45 MINS Reji Baiely MD [address] [place] [address] [facility] [address] [place] [address] Referral ID Status Reason Start Date Expiration Date V isits Requested Visits Authorized [id number] Closed Auto-Generate d Referral 10/16/2022 2023 1 1 Reason Comments Physical Therapy Specialty Diagnoses / Procedures Referred By Contac t Referred To Contact [facility] Diagnoses Chronic bilateral low back pain without sciatica Procedures PT REHAB FOLLOW UP ORDER THERAPEUTIC EXERCISES RE, EA 15 MIN. Sharlene Paz, PT [facility] [address] [place] [address] Referral ID Status Reason Start Date Expiration Date Visits Requested Visits Authorized [id number] Authorized PCP Requested Referral Auto-Generate d Referral 04/27/2023 07/28/2023 12 12 Care Teams (unrecognized sec tion and content) Team Status: Active Member Role Status Dates No Primary Care Physician Family Provider Active No Primary Care Physician Primary Care Provider Active Team Status: Inactive Member Role Status Dates No Primary Care Physician Primary Care Provider Active Dr. Shelton Hatfield MD Emergency Provider Active Team Status: Inactive Member Role Status Dates No Primary Care Physician Primary Care Provider Active Dr. Shelton Hatfield MD Attending Provider, Emergency Provider Active Team Status: Inactive Member Role Status Dates No Primary Care Physician Primary Care Provider Active Dr. 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 [address] [place] [address] PCP - General Internal Medicine 01/06/23 [employer] Chief Scientist Relationship Specialty Start Date End Date Reji Bailey MD [address] [place] [address] PCP - General Internal Medicine 01/10/23 [employer] Chief Scientist Relationship Specialty Start Date End Date Reji Bailey MD [address] [place], [place] [id number] PCP - General Internal Medicine 01/10/23 [employer] Chief Scientist Relationship Specialty Start Date End Date Reji Bailey MD [address] [place] [address] PCP - General Internal Medicine 01/10/23 [employer] Chief Scientist Relationship Specialty Start Date End Date Reji Bailey MD [address] [place] [address] PCP - General Internal Medicine 01/10/23 [employer] Chief Scientist Relationship Specialty Start Date End Date Reji Bailey MD [address] [place], [place] [id number] PCP - General Internal Medicine 01/10/23 INFORMATION SOURCE (unrecogn ized section and content) DATE CREATED AUTHOR 06/27/2023 [facility] DATE CREATED AUTHOR AUTHOR'S ORGANIZ ATION 04/08/2025 [facility] FOR RECORDS PERTAINING TO PATIENTS WHO ARE [...] BE BASED ON THE PRIMARY CLINICAL RECORDS. [employer] [facility]. provides no warranty or guarantee of the accuracy or completeness of information in this document.
== END | disposition home or self-care (01) ==
PROVIDERS: PCP Nurse Practitioner; Visit Provider Student in an Organized Health Care Education/Training Program
DX: G47.10 Hypersomnia, unspecified (principal)
CPT/HCPCS: 95806